=== PATIENT | male | born 1980 | race Two or more races ===

== ENCOUNTER 2020-06-07 12:06 | Outpatient (REF) | payer OTHER, SELFPAY ==
[2020-06-07 14:56] LABS: Alanine Aminotransferase 51 U/L (0-40); Albumin Level 4.7 g/dL (3.5-5.0); Alkaline Phosphatase 82 U/L (39-117); Anion Gap 12 (12-20); Aspartate Amino Transferase 24 U/L (5-37); Bilirubin Total 0.8 mg/dL (0.0-1.0); Blood Urea Nitrogen 18 mg/dL (9-16); Calcium 10.1 mg/dL (8.4-10.2); Carbon Dioxide 28 mmol/L (22-29); Chloride 103 mmol/L (96-108); Cholesterol 205 mg/dL; Estimated Glomerular Filt Rate > 60; Glucose Random 105 mg/dL (60-115); HDL Cholesterol 38 mg/dL; LDL Cholesterol Calculated 129 mg/dl; Potassium 4.8 mmol/L (3.3-5.1); Sodium 138 mmol/L (135-145); Total Protein 7.4 g/dL (6.5-8.0); Triglycerides 190 mg/dL
[2020-06-07 15:20] LABS: TSH reflex Free T4 0.87 uIU/mL (0.32-4.0)
== END 2020-06-07 12:07 | disposition home or self-care (01) ==
LOC: HO.WFDLDS 12:06
PROVIDERS: Visit Provider Family Medicine
DX: Z00.00 Encounter for general adult medical examination without abnormal findings (principal); I10 Essential (primary) hypertension; E78.5 Hyperlipidemia, unspecified
CPT/HCPCS: 36415; 80053; 80061; 84443

== ENCOUNTER 2020-11-01 10:05 | Outpatient (REF) | payer OTHER, SELFPAY ==
[2020-11-01 10:54] LABS: Alanine Aminotransferase 19 U/L (0-40); Albumin Level 4.4 g/dL (3.5-5.0); Alkaline Phosphatase 64 U/L (39-117); Aspartate Amino Transferase 14 U/L (5-37); Bilirubin Direct 0.3 mg/dL (0.0-0.5); Bilirubin Total 0.6 mg/dL (0.0-1.0); Total Protein 6.8 g/dL (6.5-8.0)
== END 2020-11-01 10:06 | disposition home or self-care (01) ==
LOC: HO.LAB 10:05
PROVIDERS: Visit Provider Psychiatry & Neurology Neurology
DX: Z13.89 Encounter for screening for other disorder (principal)
CPT/HCPCS: 36415; 80076

== ENCOUNTER 2021-04-03 11:34 | Outpatient (REF) | payer OTHER, SELFPAY ==
[2021-04-03 12:47] LABS: Alanine Aminotransferase 30 U/L (0-40); Albumin Level 4.4 g/dL (3.5-5.0); Alkaline Phosphatase 81 U/L (39-117); Anion Gap 11 (12-20); Aspartate Amino Transferase 16 U/L (5-37); Bilirubin Total 0.5 mg/dL (0.0-1.0); Blood Urea Nitrogen 22 mg/dL (9-16); Calcium 9.9 mg/dL (8.4-10.2); Carbon Dioxide 29 mmol/L (22-29); Chloride 108 mmol/L (96-108); Cholesterol 167 mg/dL; Estimated Glomerular Filt Rate > 60; Glucose Fasting 106 mg/dL (60-99); HDL Cholesterol 43 mg/dL; LDL Cholesterol Calculated 102 mg/dl; Potassium 4.4 mmol/L (3.3-5.1); Sodium 144 mmol/L (135-145); Total Protein 6.9 g/dL (6.5-8.0); Triglycerides 112 mg/dL
[2021-04-03 12:55] LABS: Microalbum/Creatinine Ratio Ur 3.6 ug/mg cr
[2021-04-03 13:11] LABS: TSH reflex Free T4 1.38 uIU/mL (0.32-4.0)
== END 2021-04-03 11:35 | disposition home or self-care (01) ==
LOC: HO.LAB 11:34
PROVIDERS: PCP Family Medicine; Visit Provider Family Medicine
DX: Z00.00 Encounter for general adult medical examination without abnormal findings (principal); I10 Essential (primary) hypertension
CPT/HCPCS: 36415; 80053; 80061; 82043; 84443

== ENCOUNTER 2022-04-01 09:27 | Outpatient (REF) | payer OTHER, SELFPAY ==
[2022-04-01 09:48] LABS: MANUAL DIFF FLAG NO
[2022-04-01 09:52] LABS: Basophils Percent Auto 0.4 % (0-2); Eosinophils Absolute Auto 0.1 X10*3/uL (0.0-0.4); Eosinophils Percent Auto 1.6 % (0-4); Hematocrit 41.3 % (42.0-52.0); Hemoglobin 14.1 g/dl (14.0-18.0); Imm Gran Abs Auto 0.01 X10*3/uL (0.00-0.03); Imm Gran Pct Auto 0.2 % (0.0-0.4); Lymphocytes Absolute Auto 0.9 X10*3/uL (1.2-4.9); Lymphocytes Percent Auto 19.4 % (20-40); Mean Corpuscular HGB Conc 34.1 g/dl (31.0-36.0); Mean Corpuscular Hemoglobin 30.8 pg (27.0-33.0); Mean Corpuscular Volume 90.2 fL (80.0-98.0); Mean Platelet Volume 10.2 fL (9.4-12.4); Monocytes Absolute Auto 0.6 X10*3/uL (0.1-1.2); Monocytes Percent Auto 13.4 % (2-11); Neutrophils Absolute Auto 2.9 x10*3/uL (2.0-8.3); Platelet Count 310 X10*3/uL (160-400); Red Blood Count 4.58 X10*6/uL (4.60-5.80); Red Cell Distribution Width 13.8 % (11.0-16.0); White Blood Count 4.5 X10*3/uL (4.8-10.8)
[2022-04-01 10:24] LABS: Estimated Average Glucose 111 mg/dL; Hemoglobin A1c % 5.5 %
[2022-04-01 10:42] LABS: Appearance Urine Clear; Color Urine Yellow; Glucose Urine UA Negative (Negative); Leukocyte Esterase Urine Negative (Negative); Nitrite Urine Negative (Negative); PH 6.5 (5.0-9.0); Specific Gravity - Urine 1.015 (1.005-1.025); Urine Blood Negative (Negative); Urine Ketones Trace mg/dL (Negative); Urine Protein Negative (Neg-Trace)
[2022-04-01 11:30] LABS: Alanine Aminotransferase 40 U/L (0-40); Albumin Level 4.6 g/dL (3.5-5.0); Alkaline Phosphatase 89 U/L (39-117); Aspartate Amino Transferase 19 U/L (5-37); Bilirubin Direct 0.2 mg/dL (0.0-0.5); Bilirubin Total 0.6 mg/dL (0.0-1.0)
[2022-04-01 11:44] LABS: Creatinine Urine 215.15 mg/dL; Microalbum/Creatinine Ratio Ur 3.2 ug/mg cr
[2022-04-01 12:01] LABS: Alanine Aminotransferase 40 U/L (0-40); Albumin Level 4.6 g/dL (3.5-5.0); Alkaline Phosphatase 89 U/L (39-117); Anion Gap 14 (12-20); Aspartate Amino Transferase 23 U/L (5-37); Bilirubin Total 0.6 mg/dL (0.0-1.0); Blood Urea Nitrogen 23 mg/dL (9-16); Calcium 10.4 mg/dL (8.4-10.2); Carbon Dioxide 24 mmol/L (22-29); Chloride 107 mmol/L (96-108); Cholesterol 312 mg/dL; Estimated Glomerular Filt Rate > 60; Glucose Fasting 110 mg/dL (60-99); HDL Cholesterol 35 mg/dL; LDL Cholesterol Calculated 235 mg/dl; Potassium 4.5 mmol/L (3.3-5.1); Sodium 140 mmol/L (135-145); Triglycerides 211 mg/dL
[2022-04-01 12:19] LABS: Prostate Specific Antigen Scr 0.55 ng/mL (<0.05-4.0); TSH reflex Free T4 0.68 uIU/mL (0.32-4.0)
[2022-04-01 14:31] LABS: Folate 8.1 ng/mL (> or = 4.0); Vitamin B12 449 pg/mL (200-900)
== END 2022-04-01 09:28 | disposition home or self-care (01) ==
LOC: HO.LAB 09:27
PROVIDERS: PCP Family Medicine; Visit Provider Psychiatry & Neurology Neurology
DX: Z00.00 Encounter for general adult medical examination without abnormal findings (principal); Z12.5 Encounter for screening for malignant neoplasm of prostate; I10 Essential (primary) hypertension; R73.01 Impaired fasting glucose; E53.8 Deficiency of other specified B group vitamins
CPT/HCPCS: 36415; 80053; 80061; 80076; 81003; 82043; 82248; 82607; 82746; 83036; 84153; 84443; 85025

== ENCOUNTER 2022-07-09 09:26 | Outpatient (REF) | payer OTHER, SELFPAY ==
[2022-07-09 09:45] LABS: MANUAL DIFF FLAG NO
[2022-07-09 10:31] LABS: Basophils Percent Auto 0.7 % (0-2); Eosinophils Absolute Auto 0.1 X10*3/uL (0.0-0.4); Eosinophils Percent Auto 1.7 % (0-4); Hematocrit 41.5 % (42.0-52.0); Hemoglobin 14.2 g/dl (14.0-18.0); Imm Gran Abs Auto 0.02 X10*3/uL (0.00-0.03); Imm Gran Pct Auto 0.4 % (0.0-0.4); Lymphocytes Absolute Auto 1.3 X10*3/uL (1.2-4.9); Lymphocytes Percent Auto 29.2 % (20-40); Mean Corpuscular HGB Conc 34.2 g/dl (31.0-36.0); Mean Corpuscular Hemoglobin 30.9 pg (27.0-33.0); Mean Corpuscular Volume 90.2 fL (80.0-98.0); Mean Platelet Volume 10.8 fL (9.4-12.4); Monocytes Absolute Auto 0.5 X10*3/uL (0.1-1.2); Neutrophils Absolute Auto 2.7 x10*3/uL (2.0-8.3); Platelet Count 278 X10*3/uL (160-400); White Blood Count 4.6 X10*3/uL (4.8-10.8)
[2022-07-09 11:09] LABS: Alanine Aminotransferase 59 U/L (0-40); Albumin Level 4.3 g/dL (3.5-5.0); Alkaline Phosphatase 67 U/L (39-117); Anion Gap 14 (12-20); Aspartate Amino Transferase 27 U/L (5-37); Bilirubin Total 0.6 mg/dL (0.0-1.0); Blood Urea Nitrogen 21 mg/dL (9-16); Calcium 9.7 mg/dL (8.4-10.2); Carbon Dioxide 27 mmol/L (22-29); Chloride 107 mmol/L (96-108); Cholesterol 302 mg/dL; Estimated Glomerular Filt Rate > 60; Glucose Fasting 99 mg/dL (60-99); HDL Cholesterol 35 mg/dL; LDL Cholesterol Calculated 222 mg/dl; Potassium 4.6 mmol/L (3.3-5.1); Sodium 143 mmol/L (135-145); Total Protein 6.4 g/dL (6.5-8.0); Triglycerides 228 mg/dL
[2022-07-09 11:15] LABS: Appearance Urine Clear; Color Urine Dark Yellow; Glucose Urine UA Negative (Negative); Leukocyte Esterase Urine Negative (Negative); Nitrite Urine Negative (Negative); Specific Gravity - Urine >= 1.030 (1.005-1.025); Urine Blood Negative (Negative); Urine Ketones Trace mg/dL (Negative); Urine Protein Negative (Neg-Trace)
[2022-07-09 11:28] LABS: Prostate Specific Antigen Scr 0.53 ng/mL (<0.05-4.0); TSH reflex Free T4 1.48 uIU/mL (0.32-4.0)
[2022-07-09 11:40] LABS: Creatinine Urine 395.17 mg/dL; Microalbum/Creatinine Ratio Ur 4.5 ug/mg cr
== END 2022-07-09 09:27 | disposition home or self-care (01) ==
LOC: HO.LAB 09:26
PROVIDERS: PCP Family Medicine; Visit Provider Family Medicine
DX: Z00.00 Encounter for general adult medical examination without abnormal findings (principal); Z12.5 Encounter for screening for malignant neoplasm of prostate; I10 Essential (primary) hypertension
CPT/HCPCS: 36415; 80053; 80061; 81003; 82043; 84153; 84443; 85025

== ENCOUNTER 2022-12-29 09:19 | Outpatient (AMB) | payer OTHER, SELFPAY ==
[2022-12-29 09:39] VITALS: BP 128/78; PULSE 73; O2SAT 96; BMI 29.2
--- NOTE | 2022-12-29 09:39 | MHC.PC.OV ---
Vital Signs 12/29/22 09:39 Height 5 ft 9 in Weight 198 lb BMI 29.2 BP 128/78 Blood Pressure Location Lt brachial Position Sitting Pulse 73 Pulse Source Pulse Oximeter Pulse Oximetry (%) 96 Oxygen Delivery Method Room Air Intake Visit Reasons: f/u chronic conditions Intake Note: Patient is here to follow up on chronic conditions. Patient is requesting a letter for a first floor apartment. Allergies phenytoin [Dilantin] Allergy (Unknown, Verified 12/29/22 09:41) unknown From Dilantin Allergy (Unknown, Uncoded 12/29/22 09:41) UNKNOWN Tobacco use date assessed: 12/29/22 Dental Screening Dental Screen Date: 12/29/22 Did you have a dental visit in the last 12 months?: Yes Did you have a dental problem in the last 6 months where you did not have access to dental care?: No Was dental information given to patient?: Patient has [facility] Surgical History History of tracheostomy Family History Mother No problems noted. Father No problems noted. Other Mental health disorder Social History (Reviewed 12/29/22 @ 09:43 by Kianna Aviles [facility]) Housing: Apartment Alcohol intake: former Patient Tobacco Use Status: Former Tobacco user Cigarettes Per Day: 2 e-Cigarette/Vaping Use: Never Used Second Hand Smoke Exposure: No service: No Current occupational status: disabled Current occupational exposures/hazards: No Cognitive needs: Yes (Cane/walker) Hearing needs: No Vision needs: No Questionnaire Thrive Questionnaire Date Thrive assessed: 03/04/22 SAAD-7 AMB Questionnaire SAAD-7 Date SAAD - 7 assessed: 03/04/22 Source: Developed by Drs. Kevin Lobato, Shaina Kate, Charan Villa and colleagues, with an educational michael from [employer]. Review of Systems Const Denies chills, Denies fatigue, Denies fever(s), Denies headache(s) and Denies weakness ENT Denies dizziness and Denies headache(s) Card Denies chest pain, Denies lightheadedness, Denies dyspnea and Denies other (Palpitations) Resp Denies cough, Denies dyspnea, Denies wheezing and Denies other ( shortness of breath) Musc Denies numbness and Denies tingling Neuro Denies dizziness, Denies headache(s), Denies numbness, Denies tingling, Denies paresthesias and Denies weakness Psych Denies anxiety and Denies depression Endo Denies fatigue Aller/Immun Denies wheezing Physical exam (Primary Care) Vital Signs: Last Vital Signs Pulse 73 12/29/22 09:39 BP 128/78 12/29/22 09:39 Pulse Ox 96 12/29/22 09:39 Oxygen Delivery Method Room Air 12/29/22 09:39 BMI result Body Mass Index 29.2 Tobacco/Smoking Status: Tobacco use Status Tobacco use date assessed 12/29/22 12/29/22 09:43 Patient Tobacco Use Status Former Tobacco user 12/29/22 09:43 e-Cigarette/Vaping Use Never Used 12/29/22 09:43 Thrive Assessment: Date of Thrive Assessment Date Thrive assessed 03/04/22 12/29/22 09:43 Const General: no acute distress and well developed Nutritional Appearance: well nourished Orientation/consciousness: patient oriented x3 HENMT Head: Yes normocephalic and Yes atraumatic Eyes General: appearance normal, both eyes and all related structures Pupils: Equal, round and reactive pupils present EOM: EOMs intact bilaterally Resp Effort & Inspection: normal respiratory effort Auscultation: clear to auscultation bilaterally Cardio Rate: regular rate Rhythm: regular rhythm Heart sounds: S1 normal heart sound present, S2 normal heart sound present, no gallops, no murmurs and no rubs Neuro Other: Mildly?unsteady?gait General: patient oriented x3 Cranial nerves: Yes Equal, round and reactive pupils present Psych Affect: normal affect Assessment and Plan Assessment & Plan (1) Multiple sclerosis: Code(s): G35 - Multiple sclerosis Plan: Multiple?sclerosis?and?ataxic?gait I?feel?he?would?benefit?from?a?first-floor?apartment?and?had?written?him?a?letter?for?this?in?June. He?says?he?is?on?a?waiting?list?now?for?August??2023. (2) Hyperlipidemia: Code(s): E78.5 - Hyperlipidemia, unspecified Plan: Cholesterol?levels?are?too?high.??He?is?on?atorvastatin?40?mg?daily Will?recheck?lipids?with?his?next?blood?draw?and?review?at?his?next?visit (3) Elevated liver enzymes: Code(s): R74.8 - Abnormal levels of other serum enzymes Plan: Liver?enzymes?are?too?high Checking?this?with?his?next?blood?draw?and?will?review?at?his?next?visit Orders: Orders UA and rflx microscopic Today Z00.00 - Encounter for general adult medical examination without abnormal findings Comprehensive [place]. Panel Fast Today Z00.00 - Encounter for general adult medical examination without abnormal findings Complete Blood Count Auto Diff Today Z00.00 - Encounter for general adult medical examination without abnormal findings Microalbumin, Random (w Creat) Today I10 - Essential (primary) hypertension Lipid Panel Today Z00.00 - Encounter for general adult medical examination without abnormal findings TSH reflex Free T4 Today Z00.00 - Encounter for general adult medical examination without abnormal findings Coding Level of Care Code Est Pt Level 4 (22952) Diagnoses Multiple sclerosis G35 Hyperlipidemia E78.5 Elevated liver enzymes R74.8
== END 2022-12-29 11:10 | disposition home or self-care (01) ==
PROVIDERS: PCP Family Medicine; Visit Provider Family Medicine
DX: G35 Multiple sclerosis (principal); E78.5 Hyperlipidemia, unspecified; R74.8 Abnormal levels of other serum enzymes
CPT/HCPCS: 99214

== ENCOUNTER 2022-12-29 11:05 | Outpatient (REF) | payer OTHER, SELFPAY ==
[2022-12-29 14:13] LABS: Alanine Aminotransferase 37 U/L (0-40); Albumin Level 4.6 g/dL (3.5-5.0); Alkaline Phosphatase 74 U/L (39-117); Anion Gap 16 (12-20); Aspartate Amino Transferase 27 U/L (5-37); Bilirubin Total 0.6 mg/dL (0.0-1.0); Blood Urea Nitrogen 33 mg/dL (9-16); Calcium 10.5 mg/dL (8.4-10.2); Carbon Dioxide 27 mmol/L (22-29); Chloride 105 mmol/L (96-108); Cholesterol 193 mg/dL (<200); Estimated Glomerular Filt Rate > 60; Glucose Fasting 98 mg/dL (60-99); HDL Cholesterol 28 mg/dL (>40); LDL Cholesterol Calculated 131 mg/dL (<100); Potassium 4.2 mmol/L (3.3-5.1); Sodium 144 mmol/L (135-145); Total Protein 7.6 g/dL (6.5-8.0); Triglycerides 171 mg/dL (<150)
[2022-12-29 14:31] LABS: TSH reflex Free T4 2.49 uIU/mL (0.32-4.0)
== END 2022-12-29 11:06 | disposition home or self-care (01) ==
LOC: HO.WFDLDS 11:05
PROVIDERS: Visit Provider Family Medicine
DX: Z00.00 Encounter for general adult medical examination without abnormal findings (principal); Z12.5 Encounter for screening for malignant neoplasm of prostate; I10 Essential (primary) hypertension
CPT/HCPCS: 36415; 80053; 80061; 81001; 82043; 82570; 84153; 84443; 85025

== ENCOUNTER 2023-01-09 18:30 | Inpatient (IN) | payer OTHER, SELFPAY ==
[2023-01-09 19:10] VITALS: BP 151/93; PULSE 73; RESP 16; TEMP 37.6; O2SAT 96; BMI 32.5
--- NOTE | 2023-01-09 19:15 | ED_ITS ---
HPI - General Adult General Chief complaint: Behavioral Concerns Stated complaint: crisis Time Seen by Provider: 01/09/23 20:44 Source: patient Mode of arrival: ambulatory Limitations: no limitations History of Present Illness HPI narrative: Patient comes to the emergency room complaining of feeling anxious and depressed because his neighbors don't let him get any rest . Patient denies suicidal or homicidal ideation. Patient denies any physical or verbal altercations Related Data Home Medications Medication Instructions Recorded Confirmed cholecalciferol (vitamin D3) 25 25 mcg PO DAILY 01/09/23 01/09/23 mcg (1,000 unit) tablet (Vitamin D3) dalfampridine 10 mg 10 mg PO BID 01/09/23 01/09/23 tablet,extended release,12 hr diclofenac sodium 50 mg 50 mg PO BID 01/09/23 01/09/23 tablet,delayed release diphenhydramine HCl 25 mg tablet 25 mg PO BEDTIME PRN allergies 01/09/23 01/09/23 (Autumn-Dryl) divalproex 250 mg tablet,extended 750 mg PO BID 01/09/23 01/09/23 release 24 hr fingolimod 0.5 mg capsule 0.5 mg PO DAILY 01/09/23 01/09/23 oxybutynin chloride 5 mg 5 mg PO DAILY 01/09/23 01/09/23 tablet,extended release 24 hr risperidone 3 mg tablet 3 mg PO BEDTIME 01/09/23 01/10/23 trazodone 100 mg tablet 100 mg PO DAILY 01/09/23 01/09/23 Previous Rx's Medication Instructions Recorded melatonin 10 mg capsule 10 mg PO BEDTIME PRN sleep #20 caps 01/09/23 Allergies Allergy/AdvReac Type Severity Reaction Status Date / Time phenytoin [Dilantin] Allergy Unknown unknown Verified 01/09/23 19:13 From Dilantin Allergy Unknown UNKNOWN Uncoded 01/09/23 19:13 Review of Systems 2 Review of Systems: Constitutional : No Weight loss, No Fever, No Chills, No Night Sweats, No Fatigue, No Malaise ENT/Mouth : No Hearing loss, No Ear Pain, No Nasal Congestion, No Sinus Pain, No Hoarseness, No sore throat, No Rhinorrhea, No Swallowing Difficulty Eyes: No Eye Pain, No Swelling, No Redness, No Foreign Body, No Discharge, No Vision Changes Cardiovascular : No Chest Pain, No SOB, No Dyspnea on Exertion, No Orthopnea, No Edema, No Palpitations Respiratory : No Cough, No Sputum, No Wheezing, No Smoke Exposure, No Dyspnea Gastrointestinal : No Nausea, No Vomiting, No Diarrhea, No Constipation, No abdominal Pain, No Hematochezia, No Melena Genitourinary : no irregular bleeding, No Dysuria, No Urinary Frequency, No Hematuria, No Urinary Incontinence, No Urgency, No Flank Pain, No Urinary Flow Changes, No Hesitancy Musculoskeletal : No joint pain, No Myalgias, No Joint Swelling Skin : No Skin Lesions, No rash Neuro : No Weakness, No Numbness, No Paresthesias, No Loss of Consciousness, No Dizziness, No Headache Psych : No Anxiety/Panic, No Depression, No SI/HI/AH/VH, complaining of issues with his neighbors not let him rest Heme/Lymph: No Bruising, No Bleeding,No Lymphadenopathy Endocrine : No Polyuria, No Polydipsia, No Temperature Intolerance PMFSH Past Medical History Surgical History History of tracheostomy Family History Family History Mother No problems noted. Father No problems noted. Other Mental health disorder Social History Social History Housing: Apartment Alcohol intake: former Patient Tobacco Use Status: Former Tobacco user Cigarettes Per Day: 2 e-Cigarette/Vaping Use: Never Used Second Hand Smoke Exposure: No Advance Directives: No Advance Directives Information Provided: No Guardian: No service: No Current occupational status: disabled Current occupational exposures/hazards: No Cognitive needs: Yes (Cane/walker) Hearing needs: No Vision needs: No Physical Exam ED Vital Signs: Vital Signs - 24 hr 01/10/23 18:23 01/10/23 23:26 Temperature 97.6 F 98.3 F Pulse Rate 72 79 Respiratory Rate 16 17 Blood Pressure 162/97 H 119/80 Pulse Oximetry 95 96 Oxygen Delivery Method Room Air Room Air BMI result Body Mass Index 32.5 Const Other: Appearance: Alert. Oriented X3. No acute distress. Eyes: Pupils equal, round and reactive to light. ENT: Pharynx normal. Neck: Normal inspection. Neck supple. No lymph nodes noted. No crepitus CVS: Normal heart rate and rhythm. Pulses normal. Normal S1 and S2 Respiratory: No respiratory distress. Breath sounds normal. No Wheezing. No rales Abdomen: Soft and nontender. No rigidity. No distention. Skin: Skin warm and dry. Normal skin color. Normal skin turgor. Extremities: No lower extremity edema. No Lacerations. No Rash Neuro: Oriented X 3. No motor deficit. No sensory deficit. Moving all extremities. No slurred speech. CN 2 through 12 grossly intact Psych: calm, cooperative, normal affect Course Course Course Narrative: RME performed by Cindi Stanford PA-C. Patient is a 42 year old assigned male at presenting to the emergency department with more stress because of his living situation. Patient states that he is more depressed because his neighbors are being more loud and not letting him read or sleep. Patient denies any HI or SI. Labs ordered. Patient placed back in the waiting room pending room availability and results. Reevaluation(s) Reevaluation #1: Physician observation continued. VS stable, no acute events at this time. voluntary inpatient bed search Medications Administered Generic Name Dose Route Start Last Admin Trade Name Freq PRN Reason Stop Dose Admin Diclofenac Sodium 50 mg 01/10/23 09:00 01/11/23 09:13 Diclofenac Sodium Delayed Rel 50 Mg Tablet.Dr PO 50 mg BID DREW Administration Diphenhydramine HCl 25 mg 01/10/23 00:06 01/10/23 20:16 Diphenhydramine Hcl 25 Mg Capsule PO 25 mg BEDTIME PRN Administration allergies Divalproex Sodium 750 mg 01/10/23 00:15 01/11/23 09:13 Divalproex Sodium Er 250 Mg Tab.Er.24h PO 750 mg BID DREW Administration Oxybutynin Chloride 5 mg 01/10/23 09:00 01/11/23 09:12 Oxybutynin Chloride Er 5 Mg Tab.Er.24 PO 5 mg DAILY DREW Administration Risperidone 3 mg 01/10/23 00:15 01/10/23 20:16 Risperidone 3 Mg Tablet PO 3 mg BEDTIME DREW Administration Vitamin D 25 mcg 01/10/23 09:00 01/11/23 09:12 Cholecalciferol (Vitamin D3) 25 Mcg Tablet PO 25 mcg DAILY DREW Administration Discontinued Medications Generic Name Dose Route Start Last Admin Trade Name Chaya PRN Reason Stop Dose Admin Trazodone HCl 100 mg 01/10/23 09:00 01/10/23 10:38 Trazodone Hcl 100 Mg Tablet PO Not Given DAILY [facility] Medical Decision Making Medical Decision Making [facility] Narrative: -care team assessment pending -21:56 CARE team evaluated the patient, patient was offered outpatient correctional case manager, therapist, patient declined, states that he feels well, patient requesting a medication to help him sleep. Melatonin will be sent to the patient's pharmacy. 22:48 Dr. Roberto's note: Start physician observation: 42-year-old male with a history of insomnia, hyperlipidemia, multiple sclerosis, hypertension who presented to the emergency department for evaluation anxiety, depression and insomnia since his neighbors were keeping up at night. I assumed care of this patient from my colleague, Dr. Alisha Person at 22:00 hours. Patient was evaluated by the care team and a care team clinician gave me the following information: the patient may be having some paranoid ideation. He believes that his neighbors are keeping him awake at night. He denies being suicidal or homicidal but he did tell the care team that has a knife in case someone tries to mess with him. Care team states the patient has no intent to harm anyone. Patient's affect appears to be unusual. care team clinician was able to review a previous admission in 2017. Patient was diagnosed with bipolar 1, at that time he had similar theme of his neighbors were out to get him. at that time he had gayle and delusional ideations. The care team clinician believe that the patient is not as decompensated as previously however her recommendation was to keep the patient in the emergency department for re-evaluation in the morning. Plan is to keep the patient in the emergency department Behavioral Health Unit until he can be re-evaluated to determine appropriate disposition. 845 am patient just came last night evaluated by Dr. Romero awaiting for care team to re-evaluate the patient to determine appropriate disposition vitals are stable no active complaints at this time Differential Diagnosis Differential Diagnoses: The differential diagnosis associated with the presentation includes (Anxiety, depression, possible underlying developmental delay?) Lab Data 01/09/23 23:25 01/09/23 23:25 Labs: Lab Results 01/09/23 01/10/23 Range/Units 23:25 00:57 WBC 4.3 L (4.8-10.8) X10*3/uL RBC 4.50 L (4.60-5.80) X10*6/uL Hgb 13.8 L (14.0-18.0) g/dl Hct 40.1 L (42.0-52.0) % MCV 89.1 (80.0-98.0) fL MCH 30.7 (27.0-33.0) pg MCHC 34.4 (31.0-36.0) g/dl RDW 13.8 (11.0-16.0) % Plt Count 265 (160-400) X10*3/uL MPV 10.9 (9.4-12.4) fL Immature Gran % (Auto) 0.2 (0.0-0.4) % Neut % (Auto) 59.5 (45-73) % Lymph % (Auto) 21.6 (20-40) % [place] % (Auto) 17.6 H (2-11) % Eos % (Auto) 0.9 (0-4) % Baso % (Auto) 0.2 (0-2) % Lymph # (Auto) 0.9 L (1.2-4.9) X10*3/uL [place] # (Auto) 0.8 (0.1-1.2) X10*3/uL Eos # (Auto) 0.0 (0.0-0.4) X10*3/uL Baso # (Auto) 0.0 (0.0-0.2) X10*3/uL Abs Immat Gran (auto) 0.01 (0.00-0.03) X10*3/uL Absolute Neuts (auto) 2.5 (2.0-8.3) x10*3/uL Absolute Nucleated RBC 0.000 (0.0-0.012) X10*3/uL Nucleated RBC % (auto) 0.0 (0.0-0.2) /100WBC Sodium 142 (135-145) mmol/L Potassium 4.0 (3.3-5.1) mmol/L Chloride 103 (96-108) mmol/L Carbon Dioxide 29 (22-29) mmol/L Anion Gap 14 (12-20) BUN 26 H (9-16) mg/dL Creatinine 1.00 (0.5-1.4) mg/dL Estim Creat Clear Calc 110.9 Estimated GFR > 60 Random Glucose 99 (60-115) mg/dL Calcium 10.1 (8.4-10.2) mg/dL Total Bilirubin 0.5 (0.0-1.0) mg/dL AST 41 H (5-37) U/L ALT 51 H (0-40) U/L Alkaline Phosphatase 69 (39-117) U/L Total Protein 6.8 (6.5-8.0) g/dL Albumin 4.3 (3.5-5.0) g/dL Urine Color Dark Yellow Urine Appearance Clear Urine pH 6.0 (5.0-9.0) Ur Specific [place] 1.025 (1.005-1.025) Urine Protein Negative (Neg-Trace) mg/dL Urine Glucose (UA) Negative (Negative) mg/dL Urine Ketones Trace (Negative) mg/dL Urine Blood Negative (Negative) Urine Nitrite Negative (Negative) Ur Leukocyte Esterase Negative (Negative) Urine Opiates Screen Not Detected (Not Detect) Urine Fentanyl Screen Not Detected (Not Detect) Ur Barbiturates Screen Not Detected (Not Detect) Valproic Acid 70.9 (50.0-100.0) mcg/mL Ur Phencyclidine Scrn Not Detected (Not Detect) Ur Amphetamines Screen Not Detected (Not Detect) U Benzodiazepines Scrn Not Detected (Not Detect) Urine Cocaine Screen Not Detected (Not Detect) U Marijuana (THC) Screen Not Detected (Not Detect) Ethyl Alcohol < 10 mg/dL Discharge Plan Discharge Clinical Impression: Insomnia, Paranoid ideation Patient Disposition: Still a Patient Instructions: Insomnia (ED) Additional Instructions: Please follow-up with your primary care physician tomorrow. If you have any worsening or new symptoms, please return to the emergency room or call 911 Prescriptions: New melatonin 10 mg capsule 10 mg PO BEDTIME PRN (Reason: sleep) Qty: 20 0RF No Action risperidone 3 mg tablet 3 mg PO BEDTIME trazodone 100 mg tablet 100 mg PO DAILY diphenhydramine HCl [Autumn-Dryl] 25 mg tablet 25 mg PO BEDTIME PRN (Reason: allergies) oxybutynin chloride 5 mg tablet extended release 24hr 5 mg PO DAILY diclofenac sodium 50 mg tablet,delayed release (DR/EC) 50 mg PO BID divalproex 250 mg tablet extended release 24 hr 750 mg PO BID cholecalciferol (vitamin D3) [Vitamin D3] 25 mcg (1,000 unit) tablet 25 mcg PO DAILY dalfampridine 10 mg tablet extended release 12 hr 10 mg PO BID fingolimod 0.5 mg capsule 0.5 mg PO DAILY
[2023-01-09 23:31] LABS: MANUAL DIFF FLAG NO
[2023-01-09 23:32] LABS: Basophils Percent Auto 0.2 % (0-2); Eosinophils Percent Auto 0.9 % (0-4); Hematocrit 40.1 % (42.0-52.0); Hemoglobin 13.8 g/dl (14.0-18.0); Imm Gran Abs Auto 0.01 X10*3/uL (0.00-0.03); Imm Gran Pct Auto 0.2 % (0.0-0.4); Lymphocytes Absolute Auto 0.9 X10*3/uL (1.2-4.9); Lymphocytes Percent Auto 21.6 % (20-40); Mean Corpuscular HGB Conc 34.4 g/dl (31.0-36.0); Mean Corpuscular Hemoglobin 30.7 pg (27.0-33.0); Mean Corpuscular Volume 89.1 fL (80.0-98.0); Mean Platelet Volume 10.9 fL (9.4-12.4); Monocytes Absolute Auto 0.8 X10*3/uL (0.1-1.2); Monocytes Percent Auto 17.6 % (2-11); Neutrophils Absolute Auto 2.5 x10*3/uL (2.0-8.3); Neutrophils Percent Auto 59.5 % (45-73); Platelet Count 265 X10*3/uL (160-400); Red Cell Distribution Width 13.8 % (11.0-16.0); White Blood Count 4.3 X10*3/uL (4.8-10.8)
[2023-01-09 23:47] LABS: Ethanol < 10 mg/dL; Valproate 70.9 mcg/mL (50.0-100.0)
[2023-01-09 23:49] LABS: Alanine Aminotransferase 51 U/L (0-40); Albumin Level 4.3 g/dL (3.5-5.0); Alkaline Phosphatase 69 U/L (39-117); Anion Gap 14 (12-20); Aspartate Amino Transferase 41 U/L (5-37); Bilirubin Total 0.5 mg/dL (0.0-1.0); Blood Urea Nitrogen 26 mg/dL (9-16); Calcium 10.1 mg/dL (8.4-10.2); Carbon Dioxide 29 mmol/L (22-29); Chloride 103 mmol/L (96-108); Creatinine Clr Calc Pharmacy 110.9; Estimated Glomerular Filt Rate > 60; Glucose Random 99 mg/dL (60-115); Sodium 142 mmol/L (135-145); Total Protein 6.8 g/dL (6.5-8.0)
[2023-01-10 00:15] VITALS: BP 131/82; PULSE 63; RESP 17; TEMP 36.7; O2SAT 96
[2023-01-10] MEDS: Divalproex Sodium ER 250 MG TAB.ER.24H 750 MG PO ×3 (00:55→20:16)
[2023-01-10] MEDS: diphenhydrAMINE HCL 25 MG CAPSULE PO ×2 (00:55→20:16)
[2023-01-10] MEDS: risperiDONE 3 MG TABLET PO ×2 (00:55→20:16)
[2023-01-10] MEDS: traZODone HCL 100 MG TABLET PO (00:58)
[2023-01-10 01:06] LABS: Appearance Urine Clear; Color Urine Dark Yellow; Glucose Urine UA Negative (Negative); Leukocyte Esterase Urine Negative (Negative); Nitrite Urine Negative (Negative); Specific Gravity - Urine 1.025 (1.005-1.025); Urine Blood Negative (Negative); Urine Ketones Trace mg/dL (Negative); Urine Protein Negative (Neg-Trace)
[2023-01-10 01:12] LABS: Amphetamine Screen Urine Not Detected (Not Detect); Barbiturates, Urine Not Detected (Not Detect); Benzodiazepines Screen Urine Not Detected (Not Detect); Cannabinoid Screen Urine Not Detected (Not Detect); Cocaine Screen Urine Not Detected (Not Detect); Fentanyl, urine Not Detected (Not Detect); Opiate Screen Urine Not Detected (Not Detect); Phencyclidine Screen Urine Not Detected (Not Detect)
--- NOTE | 2023-01-10 06:15 | PC.NURSE ---
Patient slept through the night, no distress observed/reported, behavior non concerning, medication compliant, care consult ordered/pending evaluation, labs completed/resulted, VSS, will continue to monitor.
--- NOTE | 2023-01-10 07:04 | PC.NURSE ---
patient appears to remain asleep at present respirations are even and unlabored patient appears in no distress
[2023-01-10] MEDS: oxyBUTYnin chloride ER 5 MG TAB.ER.24 PO (10:37)
[2023-01-10] MEDS: Cholecalciferol (Vitamin D3) 25 MCG TABLET PO (10:37)
--- NOTE | 2023-01-10 15:09 | PHA.MEDREC ---
Pharmacy Consult ? Medication Reconciliation Pharmacy has completed the medication reconciliation. Reviewed med recs done by nursing
--- NOTE | 2023-01-10 16:10 | PC.NURSE ---
patient asked to be able to listen/zoom call for jehovahs witness meeting on 01/11. t/w told client if clerk supervisor allowed we could cover his door to allow for confidentiality of peers to allow this if clerk supervisor agreed.
--- NOTE | 2023-01-10 16:53 | MHC.CARE ---
Tw conducted a [place] bed search, [facility] [place].
[2023-01-10 18:23] VITALS: BP 162/97; PULSE 72; RESP 16; TEMP 36.4; O2SAT 95
[2023-01-10] MEDS: Diclofenac Sodium Delayed Rel 50 MG TABLET.DR PO (20:15)
[2023-01-10 23:26] VITALS: BP 119/80; PULSE 79; RESP 17; TEMP 36.8; O2SAT 96
--- NOTE | 2023-01-11 05:53 | PC.NURSE ---
Patient slept through the night, no distress observed/reported, behavior non concerning, disposition per care team is voluntary inpatient bed search, medication compliant, care consult ordered/pending evaluation, labs completed/resulted, VSS, will continue to monitor.
--- NOTE | 2023-01-11 07:16 | PC.NURSE ---
patient appears to remain asleep at present respirations are even and unlabored patient appears in no distress.
[2023-01-11] MEDS: oxyBUTYnin chloride ER 5 MG TAB.ER.24 PO (09:12)
[2023-01-11] MEDS: Cholecalciferol (Vitamin D3) 25 MCG TABLET PO (09:12)
[2023-01-11] MEDS: Divalproex Sodium ER 250 MG TAB.ER.24H 750 MG PO ×2 (09:13→21:05)
[2023-01-11] MEDS: Diclofenac Sodium Delayed Rel 50 MG TABLET.DR PO ×2 (09:13→21:48)
--- NOTE | 2023-01-11 13:40 | PC.NURSE ---
clients mother came in with snack for client and had received msg from pharmacy in regards to non formulary meds, clients mother states shell come back in today.
[2023-01-11 16:30] VITALS: BP 140/99; PULSE 84; RESP 20; TEMP 37.1; O2SAT 97
--- NOTE | 2023-01-11 18:43 | ECG_ITS ---
Test Reason : MEDICAL CLEARANCE Blood Pressure : / mmHG Vent. Rate : 080 BPM Atrial Rate : 080 BPM P-R Int : 150 ms QRS Dur : 078 ms QT Int : 380 ms P-R-T Axes : 060 006 044 degrees QTc Int : 438 ms Normal sinus rhythm Normal ECG When compared with ECG of 11-JUN-2016 13:58, T wave amplitude has decreased in Anterior leads Referred By: Martir Davis Electronically Signed By:LA NEELY MD
[2023-01-11] MEDS: risperiDONE 3 MG TABLET PO (21:05)
[2023-01-11] MEDS: traZODone HCL 100 MG TABLET PO (21:05)
--- NOTE | 2023-01-11 21:11 | PC.NURSE ---
Pt medicated per may. This RN spoke with Americo from pharmacy regarding Diclofenac med, waiting on pharmacy to bring med. Pt's own med showing in Pyxis in pysch pod but when this RN went to get med, med no longer there. Per RN in psych pod, med was given to previous RN. This RN spoke with nurse charge rn. This RN spoke with Americo again regarding pt own med issue. Per americo will send camden down to access pt own med in pyxis. Plan of care ongoing.
--- NOTE | 2023-01-12 00:34 | PC.NURSE ---
Pt calm and cooperative, resting quietly. Plan of care ongoing.
[2023-01-12 02:55] VITALS: RESP 20
--- NOTE | 2023-01-12 03:25 | PC.NURSE ---
Pt ambulated with a steady gait to restroom. Plan of care ongoing.
--- NOTE | 2023-01-12 05:03 | PC.NURSE ---
Pt out of bed asking when [facility] will be in to see him. Pt advised it is 5am and they arent usually here that early. Pt assisted back into bed. Plan of care ongoing.
--- NOTE | 2023-01-12 08:11 | PC.NURSE ---
PT ASKING TO BE DISCHARGED, CARE TEAM REPORTS PT IS A IP BEDSEARCH NOT VOLUNTARY
[2023-01-12 08:31] LABS: COVID-19 Test Negative (Negative); IDNOW Serial# BCCEAD1C
[2023-01-12 08:35] VITALS: BP 118/68; PULSE 102; RESP 14; O2SAT 95
[2023-01-12] MEDS: oxyBUTYnin chloride ER 5 MG TAB.ER.24 PO (09:38)
[2023-01-12] MEDS: Diclofenac Sodium Delayed Rel 50 MG TABLET.DR PO ×2 (09:39→19:42)
[2023-01-12] MEDS: Cholecalciferol (Vitamin D3) 25 MCG TABLET PO (09:40)
[2023-01-12] MEDS: Divalproex Sodium ER 250 MG TAB.ER.24H 750 MG PO ×2 (09:41→19:41)
--- NOTE | 2023-01-12 09:43 | PC.NURSE ---
patient resting in bed in front of nurses station, respirations equal and unlabored. patient shows no signs of distress. medicated per MAY. refused breakfast tray this morning
--- NOTE | 2023-01-12 12:18 | PC.NURSE ---
NURSE TO NURSE REPORT GIVEN FOR M5 ADMISSION
[2023-01-12 14:15] VITALS: BP 132/92; PULSE 96; RESP 16; TEMP 36.8; O2SAT 97
--- NOTE | 2023-01-12 14:23 | PC.NURSE ---
pt arrived on unit via wheelchair on a CV. Vitals taken, skin check performed, oriented to unit and room. Admission assessment to follow.
[2023-01-12 18:00] VITALS: BP 132/78; PULSE 87; TEMP 36.4
[2023-01-12] MEDS: risperiDONE 3 MG TABLET PO (19:41)
[2023-01-12] MEDS: traZODone HCL 100 MG TABLET PO (19:42)
[2023-01-13 08:27] VITALS: BP 140/85; PULSE 76; RESP 16; TEMP 36.6; O2SAT 92
[2023-01-13 08:41] LABS: Estimated Average Glucose 114 mg/dL; Hemoglobin A1c % 5.6 % (<6.0)
[2023-01-13] MEDS: oxyBUTYnin chloride ER 5 MG TAB.ER.24 PO (08:59)
[2023-01-13] MEDS: Divalproex Sodium ER 250 MG TAB.ER.24H 750 MG PO ×2 (08:59→20:31)
[2023-01-13] MEDS: Diclofenac Sodium Delayed Rel 50 MG TABLET.DR PO ×2 (08:59→20:29)
[2023-01-13] MEDS: Cholecalciferol (Vitamin D3) 25 MCG TABLET PO (09:00)
[2023-01-13 09:20] LABS: Alanine Aminotransferase 59 U/L (0-40); Albumin Level 4.6 g/dL (3.5-5.0); Alkaline Phosphatase 67 U/L (39-117); Anion Gap 17 (12-20); Aspartate Amino Transferase 30 U/L (5-37); Bilirubin Total 0.7 mg/dL (0.0-1.0); Blood Urea Nitrogen 28 mg/dL (9-16); Calcium 10.1 mg/dL (8.4-10.2); Carbon Dioxide 23 mmol/L (22-29); Chloride 106 mmol/L (96-108); Cholesterol 201 mg/dL (<200); Creatinine Clr Calc Pharmacy 95.6; Estimated Glomerular Filt Rate > 60; Glucose Fasting 102 mg/dL (60-99); HDL Cholesterol 38 mg/dL (>40); LDL Cholesterol Calculated 120 mg/dL (<100); Potassium 4.3 mmol/L (3.3-5.1); Sodium 142 mmol/L (135-145); Total Protein 7.5 g/dL (6.5-8.0); Triglycerides 216 mg/dL (<150)
[2023-01-13 09:27] LABS: Thyroid Stimulating Hormone 1.94 uIU/mL (0.32-4.0)
[2023-01-13 09:38] LABS: Folate 11.3 ng/mL (> or = 4.0); Vitamin B12 505 pg/mL (200-900)
--- NOTE | 2023-01-13 12:20 | P.HPPS_ITS ---
HPI Date of Service: 01/13/23 Chief Complaint: Bipolar Disorder with Psychosis Sources of Information: patient interviewed, chart reviewed and crisis/core team assessment reviewed HPI Subjective Notes: Benson Warning and Conditional Voluntary Healthcare Proxy: No Guardianship: No Medical Problems Affecting Mental Status: No Narrative: 42 yo male, to ER with a friend, with reports of anxiety and paranoia regarding neighbors talking about him and possibly wanting to harm him. Reported inability to sleep for seven months due to neighbors making noise at night intentionally. Recently he reported carrying a knife as he felt he needed protection and to have a self defense plan prepared. Denies SI, HI. Per crisis report, sister tells crisis pt has had delusions regarding the neighbors for many years, at baseline. Pt admitted as he was concerned about his level of paranoia and that he may be becoming manic Past Psychiatric History: IP: Affirms admission- at least a few with Preston and M5 OP: Therapy- [facility] Prescriber- Dr. Mercado, PCP Trials: yes Medical Evaluation Reviewed: Yes [facility] Medical History (Updated 01/14/23 @ 16:26 by Liss Tariq APRN) Bipolar disorder with psychotic features Narrative: MS Seizure Disorder Surgical History History of tracheostomy Family History: Oh yes, I think so Social History: I am committed to the [employer] ashish now Substance History: alcohol, cannabis by history Trauma History: Affirms Diagnostics Vital Signs (24Hr): Vital Signs - 24 hr 01/12/23 14:15 01/12/23 18:00 01/13/23 08:27 Temperature 98.2 F 97.6 F 97.9 F Pulse Rate 96 87 76 Respiratory Rate 16 16 Blood Pressure 132/92 H 132/78 140/85 H Pulse Oximetry 97 92 Oxygen Delivery Method Room Air Room Air BMI result Body Mass Index 32.5 Labs 01/09/23 23:25 01/13/23 07:53 Labs: Laboratory Results - last 48 hr 01/12/23 01/13/23 08:13 07:53 Sodium 142 Potassium 4.3 Chloride 106 Carbon Dioxide 23 Anion Gap 17 BUN 28 H Creatinine 1.16 Estim Creat Clear Calc 95.6 Estimated GFR > 60 Fasting Glucose 102 H Estimat Average Glucose 114 Hemoglobin A1c % 5.6 Calcium 10.1 Total Bilirubin 0.7 AST 30 ALT 59 H Alkaline Phosphatase 67 Total Protein 7.5 Albumin 4.6 Triglycerides 216 H Cholesterol 201 H LDL Cholesterol, Calc 120 H HDL Cholesterol 38 L Vitamin B12 505 Folate 11.3 TSH 1.94 COVID-19 (ANDI) Negative COVID-19 Clin Com See Note Meds/Allergies Meds Home Medications Medication Instructions Recorded Confirmed Type cholecalciferol (vitamin D3) 25 25 mcg PO DAILY 01/09/23 01/09/23 History mcg (1,000 unit) tablet (Vitamin D3) dalfampridine 10 mg 10 mg PO BID 01/09/23 01/09/23 History tablet,extended release,12 hr diclofenac sodium 50 mg 50 mg PO BID 01/09/23 01/09/23 History tablet,delayed release diphenhydramine HCl 25 mg tablet 25 mg PO BEDTIME PRN allergies 01/09/23 01/09/23 History (Autumn-Dryl) divalproex 250 mg tablet,extended 750 mg PO BID 01/09/23 01/09/23 History release 24 hr fingolimod 0.5 mg capsule 0.5 mg PO DAILY 01/09/23 01/09/23 History oxybutynin chloride 5 mg 5 mg PO DAILY 01/09/23 01/09/23 History tablet,extended release 24 hr risperidone 3 mg tablet 3 mg PO BEDTIME 01/09/23 01/10/23 History trazodone 100 mg tablet 100 mg PO DAILY 01/09/23 01/09/23 History Allergies Allergies Allergy/AdvReac Type Severity Reaction Status Date / Time phenytoin [Dilantin] Allergy Unknown unknown Verified 01/09/23 19:13 From Dilantin Allergy Unknown UNKNOWN Uncoded 01/09/23 19:13 Mental Status Exam Mental Status Exam Patient Appearance: Appropriate Patient Orientation: Person, Place, Time and Situation Level of Consciousness: Alert Patient Behavior: Appropriate, Guarded, Talkative, Cooperative, Suspicious and Good Eye Contact Mood Description: Anxious and Apprehensive Affect Description: Anxious and Apprehensive Patient Cognition Impaired: No Ability to Follow Directions: Good Speech Pattern: Spontaneous Speech Memory Description: Episodic Impaired Hallucinations: None Delusions: Paranoid Ideation Thought Process: Distracted Thought Content: positive for Flight of Ideas, positive for Circumstantial, positive for Tangential, positive for Suicidal Ideation (denies) and positive for Homicidal Ideation (denies) Depressive Symptoms: Insomnia, Difficulty Sleeping and Difficulty Concentrating Judgement: Fair Assessment & Plan Assessment & Plan (1) Bipolar disorder with psychotic features: Status: Acute Code(s): F31.9 - Bipolar disorder, unspecified Plan 42 yo male, history of bipolar disorder with psychotic features and with fixed delusions regarding neighbors keeping him awake and potentially harming him. Pt is concerned with his level of paranoia and concerned he is becoming manic. Plan: Continue regime, adjust as needed and as pt will allow Collateral contact Diagnostics, Valporate 70.9 on admission Patient educated on: medication risk/benefits and therapeutic strategies Informed Consent: understands and further education needed Reason for continued inpatient stay Substantial Risk for: rapid decompensation Statement Statement: I have reviewed the history and physical and performed a pertinent examination on my patient. No changes have occurred unless specified. If the History and Physical was not performed prior to admission, the Hospitalist's service will be consulted for completing the admission physical. Time Spent With Patient Time: Total time managing care of this patient today ____ minutes.
--- NOTE | 2023-01-13 16:01 | HO.PM.IMCN ---
History of Present Illness Data of Consult Service Date: 01/13/23 Requesting physician: Liss Tariq Primary Care Provider: Konrad Mercado MD HPI Reason for consult: medical H&P PMFSH Family History Mother No problems noted. Father No problems noted. 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 that helps with household tasks) Alcohol intake: former Patient Tobacco Use Status: Former Tobacco user Quit Date: pt reports stopped smoking one year ago Tobacco use type: Cigarette Cigarettes Per Day: 2 Smoked in Last 30 Days: No e-Cigarette/Vaping Use: Never Used Patient Interested in Nicotine Replacement: No Patient Given Instructions on How to Stop Smoking: No Second Hand Smoke Exposure: No Use of substances other than those prescribed or required for medical reasons: No Currently Displaying Signs/Symptoms of Drug Intoxication Withdrawal: No Have you been hit, kicked, punched, or otherwise hurt by someone within the past year? If so, by whom?: No Do you feel safe in your current relationship?: No Current Relationship Is there a partner from a previous relationship who is making you feel unsafe now?: No Are you made to feel afraid or neglected: No [employer] Healthcare Practices: Church Advance Directives: Yes (Pete Miller and Chiara Miller) Advance Directives Information Provided: No (Pt reports they are his POA and their card is in his wallet) Guardian: No Do you have thoughts of harming others: None Do you have a plan to hurt others: No Plan Recently lost weight without trying: No Eating poorly because of decreased appetite: No Nutrition Risks: No Nutritional Risk Poor oral hygiene: No service: No Current occupational status: disabled Current occupational exposures/hazards: No Cognitive needs: Yes (Cane/walker) Hearing needs: No Vision needs: No Meds Allergies Allergy/AdvReac Type Severity Reaction Status Date / Time phenytoin [Dilantin] Allergy Unknown unknown Verified 01/09/23 19:13 From Dilantin Allergy Unknown UNKNOWN Uncoded 01/09/23 19:13 Active Medications: Current Medications Acetaminophen (Acetaminophen 325 Mg Tablet) 650 mg PO Q6H PRN PRN Reason: Headache/Pain Mild Scale (1-3) Al Hydroxide/Mg Hydroxide (Magnesium Hydrox/Alum Hydrox 30 Ml Oral.Susp) 30 ml PO Q6H PRN PRN Reason: Heartburn/Nausea Diclofenac Sodium (Diclofenac Sodium Delayed Rel 50 Mg Tablet.Dr) 50 mg PO BID [facility] Last Admin: 01/13/23 08:59 Dose: 50 mg Diphenhydramine HCl (Diphenhydramine Hcl 25 Mg Capsule) 25 mg PO BEDTIME PRN PRN Reason: allergies Last Admin: 01/10/23 20:16 Dose: 25 mg Divalproex Sodium (Divalproex Sodium Er 250 Mg Tab.Er.24h) 750 mg PO BID [facility] Last Admin: 01/13/23 08:59 Dose: 750 mg Hydroxyzine HCl (Hydroxyzine Hcl 25 Mg Tablet) 25 mg PO Q6H PRN PRN Reason: Anxiety Magnesium Hydroxide (Milk Of Magnesia 30 Ml Oral.Susp) 30 ml PO DAILY PRN PRN Reason: Constipation Patient Own Med ( Dalfampridine 10 Mg Tablet Extended Release 12 Hr) 10 mg PO BID [facility] Last Admin: 01/13/23 11:04 Dose: 10 mg Patient Own Medication ( Fingolimod 0.5 Mg) 1 each PO DAILY [facility] Last Admin: 01/13/23 11:04 Dose: 1 each Oxybutynin Chloride (Oxybutynin Chloride Er 5 Mg Tab.Er.24) 5 mg PO DAILY [facility] Last Admin: 01/13/23 08:59 Dose: 5 mg Risperidone (Risperidone 3 Mg Tablet) 3 mg PO BEDTIME [facility] Last Admin: 01/12/23 19:41 Dose: 3 mg Trazodone HCl (Trazodone Hcl 100 Mg Tablet) 100 mg PO BEDTIME [facility] Last Admin: 01/12/23 19:42 Dose: 100 mg Trazodone HCl (Trazodone Hcl 50 Mg Tablet) 50 mg PO BEDTIME PRN PRN Reason: Insomnia Vitamin D (Cholecalciferol (Vitamin D3) 25 Mcg Tablet) 25 mcg PO DAILY [facility] Last Admin: 01/13/23 09:00 Dose: 25 mcg Home Medications Medication Instructions Recorded Confirmed Last Taken Type cholecalciferol (vitamin D3) 25 25 mcg PO DAILY 01/09/23 01/09/23 Unknown History mcg (1,000 unit) tablet (Vitamin D3) dalfampridine 10 mg 10 mg PO BID 01/09/23 01/09/23 Unknown History tablet,extended release,12 hr diclofenac sodium 50 mg 50 mg PO BID 01/09/23 01/09/23 Unknown History tablet,delayed release diphenhydramine HCl 25 mg tablet 25 mg PO BEDTIME PRN allergies 01/09/23 01/09/23 Unknown History (Autumn-Dryl) divalproex 250 mg tablet,extended 750 mg PO BID 01/09/23 01/09/23 Unknown History release 24 hr fingolimod 0.5 mg capsule 0.5 mg PO DAILY 01/09/23 01/09/23 Unknown History oxybutynin chloride 5 mg 5 mg PO DAILY 01/09/23 01/09/23 Unknown History tablet,extended release 24 hr risperidone 3 mg tablet 3 mg PO BEDTIME 01/09/23 01/10/23 Unknown History trazodone 100 mg tablet 100 mg PO DAILY 01/09/23 01/09/23 Unknown History Physical Exam Vital Signs and Narrative: Vital Signs: Last Vital Signs Temp 97.9 F 01/13/23 08:27 Pulse 76 01/13/23 08:27 Resp 16 01/13/23 08:27 BP 140/85 H 01/13/23 08:27 Pulse Ox 92 01/13/23 08:27 O2 Del Method Room Air 01/13/23 08:27 BMI result Body Mass Index 32.5 Results Labs 01/09/23 23:25 01/13/23 07:53 Labs: Laboratory Results - last 24 hr 01/13/23 07:53 Anion Gap 17 Estim Creat Clear Calc 95.6 Estimated GFR > 60 Fasting Glucose 102 H Estimat Average Glucose 114 Hemoglobin A1c % 5.6 Calcium 10.1 Total Bilirubin 0.7 AST 30 ALT 59 H Alkaline Phosphatase 67 Total Protein 7.5 Albumin 4.6 Triglycerides 216 H Cholesterol 201 H LDL Cholesterol, Calc 120 H HDL Cholesterol 38 L Vitamin B12 505 Folate 11.3 TSH 1.94 Assessment and Plan Time Spent With Patient Time: Total time managing care of this patient today ____ minutes.
[2023-01-13 18:00] VITALS: BP 136/81; PULSE 82; TEMP 36.6
[2023-01-13] MEDS: risperiDONE 3 MG TABLET PO (20:30)
[2023-01-13] MEDS: traZODone HCL 100 MG TABLET PO (20:30)
[2023-01-14 08:32] VITALS: BP 132/80; PULSE 73; RESP 16; TEMP 36.2; O2SAT 97
[2023-01-14] MEDS: Divalproex Sodium ER 250 MG TAB.ER.24H 750 MG PO ×2 (09:41→20:34)
[2023-01-14] MEDS: oxyBUTYnin chloride ER 5 MG TAB.ER.24 PO (09:41)
[2023-01-14] MEDS: Cholecalciferol (Vitamin D3) 25 MCG TABLET PO (09:42)
[2023-01-14] MEDS: Diclofenac Sodium Delayed Rel 50 MG TABLET.DR PO ×2 (09:42→20:34)
--- NOTE | 2023-01-14 16:10 | HO.PSYCHPN ---
Subjective Subjective Date of Service: 01/14/23 Reason For Visit: Bipolar Disorder with Psychosis Subjective Notes: Conditional Voluntary Healthcare Proxy: No Guardianship: No Medical Problems Affecting Mental Status: No Interim History: Pt reports anxiety and fear of being harmed, asks for a private room. Team will discuss this with him. Review of medications, suggestions for changes which pt declines. Family visited today. Medication Compliance: Yes Side effects from medications: No Attending Groups: Intermittent Review of Systems Acute medical concerns: No Medical Review of Systems: unchanged Mental Status Exam Mental Status Exam Patient Appearance: Appropriate Patient Orientation: Person, Place, Time and Situation Level of Consciousness: Alert Patient Behavior: Appropriate, Guarded, Talkative, Cooperative, Suspicious and Good Eye Contact Mood Description: Anxious and Apprehensive Affect Description: Anxious and Apprehensive Patient Cognition Impaired: No Ability to Follow Directions: Good Speech Pattern: Spontaneous Speech Memory Description: Episodic Impaired Hallucinations: None Delusions: Paranoid Ideation Thought Process: Distracted Thought Content: positive for Flight of Ideas, positive for Circumstantial, positive for Tangential, positive for Suicidal Ideation (denies) and positive for Homicidal Ideation (denies) Depressive Symptoms: Insomnia, Difficulty Sleeping and Difficulty Concentrating Judgement: Fair Diagnostics Vital Signs (24Hr): Vital Signs - 24 hr 01/13/23 18:00 01/14/23 08:32 Temperature 97.8 F 97.1 F Pulse Rate 82 73 Respiratory Rate 16 Blood Pressure 136/81 132/80 Pulse Oximetry 97 Oxygen Delivery Method Room Air BMI result Body Mass Index 32.5 Labs 01/09/23 23:25 01/13/23 07:53 Labs: Laboratory Results - last 48 hr 01/13/23 07:53 Sodium 142 Potassium 4.3 Chloride 106 Carbon Dioxide 23 Anion Gap 17 BUN 28 H Creatinine 1.16 Estim Creat Clear Calc 95.6 Estimated GFR > 60 Fasting Glucose 102 H Estimat Average Glucose 114 Hemoglobin A1c % 5.6 Calcium 10.1 Total Bilirubin 0.7 AST 30 ALT 59 H Alkaline Phosphatase 67 Total Protein 7.5 Albumin 4.6 Triglycerides 216 H Cholesterol 201 H LDL Cholesterol, Calc 120 H HDL Cholesterol 38 L Vitamin B12 505 Folate 11.3 TSH 1.94 Medications Medications Current Medications Acetaminophen (Acetaminophen 325 Mg Tablet) 650 mg PO Q6H PRN PRN Reason: Headache/Pain Mild Scale (1-3) Al Hydroxide/Mg Hydroxide (Magnesium Hydrox/Alum Hydrox 30 Ml Oral.Susp) 30 ml PO Q6H PRN PRN Reason: Heartburn/Nausea Diclofenac Sodium (Diclofenac Sodium Delayed Rel 50 Mg Tablet.Dr) 50 mg PO BID [facility] Last Admin: 01/14/23 09:42 Dose: 50 mg Diphenhydramine HCl (Diphenhydramine Hcl 25 Mg Capsule) 25 mg PO BEDTIME PRN PRN Reason: allergies Last Admin: 01/10/23 20:16 Dose: 25 mg Divalproex Sodium (Divalproex Sodium Er 250 Mg Tab.Er.24h) 750 mg PO BID [facility] Last Admin: 01/14/23 09:41 Dose: 750 mg Hydroxyzine HCl (Hydroxyzine Hcl 25 Mg Tablet) 25 mg PO Q6H PRN PRN Reason: Anxiety Magnesium Hydroxide (Milk Of Magnesia 30 Ml Oral.Susp) 30 ml PO DAILY PRN PRN Reason: Constipation Patient Own Med ( Dalfampridine 10 Mg Tablet Extended Release 12 Hr) 10 mg PO BID [facility] Last Admin: 01/14/23 09:56 Dose: 10 mg Patient Own Medication ( Fingolimod 0.5 Mg) 1 each PO DAILY [facility] Last Admin: 01/14/23 09:56 Dose: 1 each Oxybutynin Chloride (Oxybutynin Chloride Er 5 Mg Tab.Er.24) 5 mg PO DAILY [facility] Last Admin: 01/14/23 09:41 Dose: 5 mg Risperidone (Risperidone 3 Mg Tablet) 3 mg PO BEDTIME [facility] Last Admin: 01/13/23 20:30 Dose: 3 mg Trazodone HCl (Trazodone Hcl 100 Mg Tablet) 100 mg PO BEDTIME [facility] Last Admin: 01/13/23 20:30 Dose: 100 mg Trazodone HCl (Trazodone Hcl 50 Mg Tablet) 50 mg PO BEDTIME PRN PRN Reason: Insomnia Vitamin D (Cholecalciferol (Vitamin D3) 25 Mcg Tablet) 25 mcg PO DAILY [facility] Last Admin: 01/14/23 09:42 Dose: 25 mcg Allergies Allergies Allergy/AdvReac Type Severity Reaction Status Date / Time phenytoin [Dilantin] Allergy Unknown unknown Verified 01/09/23 19:13 From Dilantin Allergy Unknown UNKNOWN Uncoded 01/09/23 19:13 Assessment & Plan Patient educated on: medication risk/benefits and therapeutic strategies Informed Consent: understands and further education needed Reason for continued inpatient stay Substantial Risk for: rapid decompensation Time Spent With Patient Time: Total time managing care of this patient today ____ minutes.
[2023-01-14] MEDS: hydrOXYzine HCL 25 MG TABLET PO (17:45)
[2023-01-14 20:30] VITALS: BP 145/95; PULSE 92; TEMP 36.6
[2023-01-14] MEDS: traZODone HCL 100 MG TABLET PO (20:34)
[2023-01-14] MEDS: risperiDONE 3 MG TABLET PO (20:34)
[2023-01-15 08:00] VITALS: BP 108/53; PULSE 71; RESP 16; TEMP 36.3; O2SAT 97
[2023-01-15] MEDS: oxyBUTYnin chloride ER 5 MG TAB.ER.24 PO (09:18)
[2023-01-15] MEDS: Diclofenac Sodium Delayed Rel 50 MG TABLET.DR PO ×2 (09:18→20:52)
[2023-01-15] MEDS: Divalproex Sodium ER 250 MG TAB.ER.24H 750 MG PO ×2 (09:19→20:52)
[2023-01-15] MEDS: Cholecalciferol (Vitamin D3) 25 MCG TABLET PO (09:19)
--- NOTE | 2023-01-15 10:12 | HO.PSYCHPN ---
Subjective Subjective Date of Service: 01/15/23 Reason For Visit: Bipolar Disorder with Psychosis Subjective Notes: Conditional Voluntary Healthcare Proxy: No Guardianship: No Medical Problems Affecting Mental Status: No Interim History: Pt reports significant fear, paranoia of others. Reports poor sleep due to fear of the checks process. At night, things are very wierd . I had to get on the floor . Fearful of noises, people, checks, being looked at, being harmed if he sleeps, that is why I sleep mostly when it is light out. Pt declined to sign his Medicare paperwork per team due to this fear. He is willing to increase medication as he admits this feeling is painful. Medication Compliance: Yes Side effects from medications: No Attending Groups: No Review of Systems Acute medical concerns: No Medical Review of Systems: unchanged Mental Status Exam Mental Status Exam Patient Appearance: Appropriate Patient Orientation: Person, Place, Time and Situation Level of Consciousness: Alert Patient Behavior: Appropriate, Guarded, Talkative, Cooperative, Suspicious and Good Eye Contact Mood Description: Anxious and Apprehensive Affect Description: Anxious and Apprehensive Patient Cognition Impaired: No Ability to Follow Directions: Good Speech Pattern: Spontaneous Speech Memory Description: Episodic Impaired Hallucinations: None Delusions: Paranoid Ideation Thought Process: Distracted Thought Content: positive for Flight of Ideas, positive for Circumstantial, positive for Tangential, positive for Suicidal Ideation (denies) and positive for Homicidal Ideation (denies) Depressive Symptoms: Insomnia, Difficulty Sleeping and Difficulty Concentrating Judgement: Fair Diagnostics Vital Signs (24Hr): Vital Signs - 24 hr 01/14/23 20:30 01/15/23 08:00 Temperature 97.9 F 97.4 F Pulse Rate 92 71 Respiratory Rate 16 Blood Pressure 145/95 H 108/53 L Pulse Oximetry 97 Oxygen Delivery Method Room Air BMI result Body Mass Index 32.5 Labs 01/09/23 23:25 01/13/23 07:53 Medications Medications Current Medications Acetaminophen (Acetaminophen 325 Mg Tablet) 650 mg PO Q6H PRN PRN Reason: Headache/Pain Mild Scale (1-3) Al Hydroxide/Mg Hydroxide (Magnesium Hydrox/Alum Hydrox 30 Ml Oral.Susp) 30 ml PO Q6H PRN PRN Reason: Heartburn/Nausea Diclofenac Sodium (Diclofenac Sodium Delayed Rel 50 Mg Tablet.Dr) 50 mg PO BID [facility] Last Admin: 01/15/23 09:18 Dose: 50 mg Diphenhydramine HCl (Diphenhydramine Hcl 25 Mg Capsule) 25 mg PO BEDTIME PRN PRN Reason: allergies Last Admin: 01/10/23 20:16 Dose: 25 mg Divalproex Sodium (Divalproex Sodium Er 250 Mg Tab.Er.24h) 750 mg PO BID [facility] Last Admin: 01/15/23 09:19 Dose: 750 mg Hydroxyzine HCl (Hydroxyzine Hcl 25 Mg Tablet) 25 mg PO Q6H PRN PRN Reason: Anxiety Last Admin: 01/14/23 17:45 Dose: 25 mg Magnesium Hydroxide (Milk Of Magnesia 30 Ml Oral.Susp) 30 ml PO DAILY PRN PRN Reason: Constipation Patient Own Med ( Dalfampridine 10 Mg Tablet Extended Release 12 Hr) 10 mg PO BID [facility] Last Admin: 01/15/23 09:19 Dose: 10 mg Patient Own Medication ( Fingolimod 0.5 Mg) 1 each PO DAILY [facility] Last Admin: 01/15/23 09:19 Dose: 1 each Oxybutynin Chloride (Oxybutynin Chloride Er 5 Mg Tab.Er.24) 5 mg PO DAILY [facility] Last Admin: 01/15/23 09:18 Dose: 5 mg Risperidone (Risperidone 3 Mg Tablet) 3 mg PO BEDTIME [facility] Last Admin: 01/14/23 20:34 Dose: 3 mg Risperidone (Risperidone 2 Mg Tablet) 2 mg PO DAILY [facility] Trazodone HCl (Trazodone Hcl 100 Mg Tablet) 100 mg PO BEDTIME [facility] Last Admin: 01/14/23 20:34 Dose: 100 mg Trazodone HCl (Trazodone Hcl 50 Mg Tablet) 50 mg PO BEDTIME PRN PRN Reason: Insomnia Vitamin D (Cholecalciferol (Vitamin D3) 25 Mcg Tablet) 25 mcg PO DAILY [facility] Last Admin: 01/15/23 09:19 Dose: 25 mcg Allergies Allergies Allergy/AdvReac Type Severity Reaction Status Date / Time phenytoin [Dilantin] Allergy Unknown unknown Verified 01/09/23 19:13 From Dilantin Allergy Unknown UNKNOWN Uncoded 01/09/23 19:13 Assessment & Plan Assessment & Plan (1) Bipolar disorder with psychotic features: Status: Acute Code(s): F31.9 - Bipolar disorder, unspecified Plan 42 yo male, history of bipolar disorder with psychotic features and with fixed delusions regarding neighbors keeping him awake and potentially harming him. Pt is concerned with his level of paranoia and concerned he is becoming manic. Plan: Continue regime, adjust as needed and as pt will allow Collateral contact Diagnostics, Valporate 70.9 on admission 01/15/23- Add Risperdal 2 mg a.m. beginning today. Patient educated on: medication risk/benefits and therapeutic strategies Informed Consent: understands and further education needed Reason for continued inpatient stay Substantial Risk for: rapid decompensation Time Spent With Patient Time: Total time managing care of this patient today ____ minutes.
[2023-01-15] MEDS: risperiDONE 2 MG TABLET PO (10:17)
[2023-01-15 18:00] VITALS: BP 136/80; PULSE 78; RESP 17; TEMP 36.6; O2SAT 97
[2023-01-15] MEDS: traZODone HCL 100 MG TABLET PO (20:52)
[2023-01-15] MEDS: risperiDONE 3 MG TABLET PO (20:52)
[2023-01-15] MEDS: hydrOXYzine HCL 25 MG TABLET PO (20:55)
[2023-01-15] MEDS: diphenhydrAMINE HCL 25 MG CAPSULE PO (22:04)
[2023-01-15] MEDS: traZODone HCL 50 MG TABLET PO (22:04)
[2023-01-16 08:35] VITALS: BP 114/60; PULSE 72; RESP 18; TEMP 36.3; O2SAT 96
[2023-01-16] MEDS: risperiDONE 2 MG TABLET PO (09:36)
[2023-01-16] MEDS: Cholecalciferol (Vitamin D3) 25 MCG TABLET PO (09:36)
[2023-01-16] MEDS: oxyBUTYnin chloride ER 5 MG TAB.ER.24 PO (09:36)
[2023-01-16] MEDS: Divalproex Sodium ER 250 MG TAB.ER.24H 750 MG PO ×2 (09:36→20:45)
[2023-01-16] MEDS: Diclofenac Sodium Delayed Rel 50 MG TABLET.DR PO ×2 (09:36→20:45)
--- NOTE | 2023-01-16 13:04 | HO.PSYCHPN ---
Subjective Subjective Date of Service: 01/16/23 Reason For Visit: Bipolar Disorder with Psychosis Subjective Notes: Conditional Voluntary Healthcare Proxy: No Guardianship: No Medical Problems Affecting Mental Status: No Interim History: Pt agreeable to meet out of his room today. Able to tolerate a room-mate last evening Identifies evening as difficult-loud noises, pt's screaming, I am not feeling safe listening to this . Reports sleep after 12am, however, the checks scare me . Fears of harm. Reports appetite/intake to be adequate. Getting to be is the problem-it is too chaotic up here at bedtime. Please be clear, I feel much better, but I don't like the situation. I would be better at home Pt able to attend [employer] group this afternoon and participate in a relaxed fashion. Medication Compliance: Yes Side effects from medications: No Attending Groups: Yes Review of Systems Acute medical concerns: No Medical Review of Systems: unchanged Mental Status Exam Mental Status Exam Patient Appearance: Appropriate Patient Orientation: Person, Place, Time and Situation Level of Consciousness: Alert Patient Behavior: Appropriate, Guarded, Talkative, Cooperative, Suspicious and Good Eye Contact Mood Description: Anxious and Apprehensive Affect Description: Anxious and Apprehensive Patient Cognition Impaired: No Ability to Follow Directions: Good Speech Pattern: Spontaneous Speech Memory Description: Episodic Impaired Hallucinations: None Delusions: Paranoid Ideation Thought Process: Distracted Thought Content: positive for Flight of Ideas, positive for Circumstantial, positive for Tangential, positive for Suicidal Ideation (denies) and positive for Homicidal Ideation (denies) Depressive Symptoms: Insomnia, Difficulty Sleeping and Difficulty Concentrating Judgement: Fair Diagnostics Vital Signs (24Hr): Vital Signs - 24 hr 01/15/23 18:00 01/16/23 08:35 Temperature 97.8 F 97.4 F Pulse Rate 78 72 Respiratory Rate 17 18 Blood Pressure 136/80 114/60 Pulse Oximetry 97 96 Oxygen Delivery Method Room Air Room Air BMI result Body Mass Index 32.5 Labs 01/09/23 23:25 01/13/23 07:53 Medications Medications Current Medications Acetaminophen (Acetaminophen 325 Mg Tablet) 650 mg PO Q6H PRN PRN Reason: Headache/Pain Mild Scale (1-3) Al Hydroxide/Mg Hydroxide (Magnesium Hydrox/Alum Hydrox 30 Ml Oral.Susp) 30 ml PO Q6H PRN PRN Reason: Heartburn/Nausea Diclofenac Sodium (Diclofenac Sodium Delayed Rel 50 Mg Tablet.Dr) 50 mg PO BID [facility] [place] Last Admin: 01/16/23 09:36 Dose: 50 mg Diphenhydramine HCl (Diphenhydramine Hcl 25 Mg Capsule) 25 mg PO BEDTIME PRN PRN Reason: allergies Last Admin: 01/15/23 22:04 Dose: 25 mg Divalproex Sodium (Divalproex Sodium Er 250 Mg Tab.Er.24h) 750 mg PO BID [facility] [place] Last Admin: 01/16/23 09:36 Dose: 750 mg Hydroxyzine HCl (Hydroxyzine Hcl 25 Mg Tablet) 25 mg PO Q6H PRN PRN Reason: Anxiety Last Admin: 01/15/23 20:55 Dose: 25 mg Magnesium Hydroxide (Milk Of Magnesia 30 Ml Oral.Susp) 30 ml PO DAILY PRN PRN Reason: Constipation Patient Own Med ( Dalfampridine 10 Mg Tablet Extended Release 12 Hr) 10 mg PO BID [facility] Last Admin: 01/16/23 09:44 Dose: 10 mg Patient Own Medication ( Fingolimod 0.5 Mg) 1 each PO DAILY [facility] Last Admin: 01/16/23 09:44 Dose: 1 each Oxybutynin Chloride (Oxybutynin Chloride Er 5 Mg Tab.Er.24) 5 mg PO DAILY [facility] [place] Last Admin: 01/16/23 09:36 Dose: 5 mg Risperidone (Risperidone 3 Mg Tablet) 3 mg PO BEDTIME [facility] [place] Last Admin: 01/15/23 20:52 Dose: 3 mg Risperidone (Risperidone 2 Mg Tablet) 2 mg PO DAILY [facility] [place] Last Admin: 01/16/23 09:36 Dose: 2 mg Trazodone HCl (Trazodone Hcl 100 Mg Tablet) 100 mg PO BEDTIME [facility] Last Admin: 01/15/23 20:52 Dose: 100 mg Trazodone HCl (Trazodone Hcl 50 Mg Tablet) 50 mg PO BEDTIME PRN PRN Reason: Insomnia Last Admin: 01/15/23 22:04 Dose: 50 mg Vitamin D (Cholecalciferol (Vitamin D3) 25 Mcg Tablet) 25 mcg PO DAILY [facility] [place] Last Admin: 01/16/23 09:36 Dose: 25 mcg Allergies Allergies Allergy/AdvReac Type Severity Reaction Status Date / Time phenytoin [Dilantin] Allergy Unknown unknown Verified 01/09/23 19:13 From Dilantin Allergy Unknown UNKNOWN Uncoded 01/09/23 19:13 Assessment & Plan Assessment & Plan (1) Bipolar disorder with psychotic features: Status: Acute Code(s): F31.9 - Bipolar disorder, unspecified Plan 42 yo male, history of bipolar disorder with psychotic features and with fixed delusions regarding neighbors keeping him awake and potentially harming him. Pt is concerned with his level of paranoia and concerned he is becoming manic. Plan: Continue regime, adjust as needed and as pt will allow Collateral contact Bradley, Otilio 70.9 on admission 01/16/23 Continue regime and plan of care. Patient educated on: medication risk/benefits and therapeutic strategies Informed Consent: understands Reason for continued inpatient stay Substantial Risk for: rapid decompensation Time Spent With Patient Time: Total time managing care of this patient today ____ minutes.
[2023-01-16 16:22] VITALS: BP 149/101; PULSE 119; RESP 18; TEMP 36.6; O2SAT 94
[2023-01-16] MEDS: Benztropine Mesylate 1 MG TABLET PO (20:45)
[2023-01-16] MEDS: traZODone HCL 100 MG TABLET PO (20:45)
[2023-01-16] MEDS: risperiDONE 3 MG TABLET PO (20:45)
[2023-01-17 06:00] VITALS: BP 101/57; PULSE 81; RESP 16; TEMP 35.6; O2SAT 96
[2023-01-17] MEDS: oxyBUTYnin chloride ER 5 MG TAB.ER.24 PO (09:17)
[2023-01-17] MEDS: Benztropine Mesylate 1 MG TABLET PO ×2 (09:18→21:22)
[2023-01-17] MEDS: risperiDONE 2 MG TABLET PO (09:18)
[2023-01-17] MEDS: Cholecalciferol (Vitamin D3) 25 MCG TABLET PO (09:18)
[2023-01-17] MEDS: Diclofenac Sodium Delayed Rel 50 MG TABLET.DR PO ×2 (09:18→21:21)
[2023-01-17] MEDS: Divalproex Sodium ER 250 MG TAB.ER.24H 750 MG PO ×2 (09:18→21:22)
--- NOTE | 2023-01-17 09:52 | P.PNPSI_ITS ---
Subjective Subjective Date of Service: 01/17/23 Reason For Visit: Bipolar Disorder with Psychosis Interim History: With patient; discussed with team; reviewed notes Patient says I feel okay I guess... I feel ready to go.... He says he is definitely feeling better than when he came in, that he is sleeping well and denies any AVH. He said he no longer has any paranoid thinking which he says is now resolved. No complaints and no other requests. Reported that with Cogentin less stiffness in the legs Mental Status Exam Mental Status Exam Narrative: Pt is alert and oriented; behavior is cooperative, friendly and calm; patient is not in distress; dressed in casual attire with adequate hygiene; mood is described as okay I guess... good and affect congruent; eye contact appropriate; Speech is normal rate, volume and prosody and not pressured; no psychomotor agitation/retardation present; thought process is organized and goal directed; Thought content is on tx, discharge; otherwise pertinent to relevant topics and without any delusional content, paranoid ideations or grandiosity; denies any SI/HI. There is no evidence of perceptual disturbance. Patients insight and judgment appear intact. Diagnostics Vital Signs (24Hr): Vital Signs - 24 hr 01/16/23 16:22 01/17/23 06:00 Temperature 97.8 F 96.1 F L Pulse Rate 119 H 81 Respiratory Rate 18 16 Blood Pressure 149/101 H 101/57 L Pulse Oximetry 94 96 Oxygen Delivery Method Room Air Room Air BMI result Body Mass Index 32.5 Labs 01/09/23 23:25 01/13/23 07:53 Medications Medications Current Medications Acetaminophen (Acetaminophen 325 Mg Tablet) 650 mg PO Q6H PRN PRN Reason: Headache/Pain Mild Scale (1-3) Al Hydroxide/Mg Hydroxide (Magnesium Hydrox/Alum Hydrox 30 Ml Oral.Susp) 30 ml PO Q6H PRN PRN Reason: Heartburn/Nausea Benztropine Mesylate (Benztropine Mesylate 1 Mg Tablet) 1 mg PO BID [facility] Last Admin: 01/17/23 09:18 Dose: 1 mg Diclofenac Sodium (Diclofenac Sodium Delayed Rel 50 Mg Tablet.) 50 mg PO BID [facility] Last Admin: 01/17/23 09:18 Dose: 50 mg Diphenhydramine HCl (Diphenhydramine Hcl 25 Mg Capsule) 25 mg PO BEDTIME PRN PRN Reason: allergies Last Admin: 01/15/23 22:04 Dose: 25 mg Divalproex Sodium (Divalproex Sodium Er 250 Mg Tab.Er.24h) 750 mg PO BID [facility] Last Admin: 01/17/23 09:18 Dose: 750 mg Hydroxyzine HCl (Hydroxyzine Hcl 25 Mg Tablet) 25 mg PO Q6H PRN PRN Reason: Anxiety Last Admin: 01/15/23 20:55 Dose: 25 mg Magnesium Hydroxide (Milk Of Magnesia 30 Ml Oral.Susp) 30 ml PO DAILY PRN PRN Reason: Constipation Patient Own Med ( Dalfampridine 10 Mg Tablet Extended Release 12 Hr) 10 mg PO BID [facility] Last Admin: 01/17/23 09:24 Dose: Not Given Patient Own Medication ( Fingolimod 0.5 Mg) 1 each PO DAILY [facility] Last Admin: 01/17/23 09:14 Dose: 1 each Oxybutynin Chloride (Oxybutynin Chloride Er 5 Mg Tab.Er.24) 5 mg PO DAILY [facility] Last Admin: 01/17/23 09:17 Dose: 5 mg Risperidone (Risperidone 3 Mg Tablet) 3 mg PO BEDTIME [facility] Last Admin: 01/16/23 20:45 Dose: 3 mg Risperidone (Risperidone 2 Mg Tablet) 2 mg PO DAILY [facility] Last Admin: 01/17/23 09:18 Dose: 2 mg Trazodone HCl (Trazodone Hcl 100 Mg Tablet) 100 mg PO BEDTIME [facility] Last Admin: 01/16/23 20:45 Dose: 100 mg Trazodone HCl (Trazodone Hcl 50 Mg Tablet) 50 mg PO BEDTIME PRN PRN Reason: Insomnia Last Admin: 01/15/23 22:04 Dose: 50 mg Vitamin D (Cholecalciferol (Vitamin D3) 25 Mcg Tablet) 25 mcg PO DAILY [facility] Last Admin: 01/17/23 09:18 Dose: 25 mcg Allergies Allergies Allergy/AdvReac Type Severity Reaction Status Date / Time phenytoin [Dilantin] Allergy Unknown unknown Verified 01/09/23 19:13 From Dilantin Allergy Unknown UNKNOWN Uncoded 01/09/23 19:13 Assessment & Plan Assessment & Plan (1) Bipolar disorder with psychotic features: Status: Acute Code(s): F31.9 - Bipolar disorder, unspecified Plan 42 yo male, history of bipolar disorder with psychotic features and with fixed delusions regarding neighbors keeping him awake and potentially harming him. Pt is concerned with his level of paranoia and concerned he is becoming manic. Plan: Continue regime, adjust as needed and as pt will allow Collateral contact Diagnostics, Miriamporate 70.9 on admission Hospital course: 01/16/23 Continue regime and plan of care. 01/17 Patient says I feel okay I guess... I feel ready to go.... He says he is definitely feeling better than when he came in, that he is sleeping well and denies any AVH. He said he no longer has any paranoid thinking which he says is now resolved. No complaints and no other requests. Reported that with Cogentin less stiffness in the legs Patient educated on: diagnosis and medication risk/benefits Informed Consent: understands Reason for continued inpatient stay Substantial Risk for: rapid decompensation Time Spent With Patient Time: Total time managing care of this patient today ____ minutes.
[2023-01-17 16:05] VITALS: BP 110/62; PULSE 88; RESP 16; TEMP 36.2; O2SAT 96
[2023-01-17] MEDS: risperiDONE 3 MG TABLET PO (21:21)
[2023-01-17] MEDS: diphenhydrAMINE HCL 25 MG CAPSULE PO (21:22)
[2023-01-17] MEDS: hydrOXYzine HCL 25 MG TABLET PO (21:23)
[2023-01-17] MEDS: traZODone HCL 100 MG TABLET PO (21:26)
[2023-01-18] MEDS: Cholecalciferol (Vitamin D3) 25 MCG TABLET PO (08:22)
[2023-01-18] MEDS: Diclofenac Sodium Delayed Rel 50 MG TABLET.DR PO ×2 (08:22→20:55)
[2023-01-18] MEDS: risperiDONE 2 MG TABLET PO (08:23)
[2023-01-18] MEDS: Benztropine Mesylate 1 MG TABLET PO ×2 (08:23→20:55)
[2023-01-18] MEDS: Divalproex Sodium ER 250 MG TAB.ER.24H 750 MG PO ×2 (08:23→20:56)
[2023-01-18] MEDS: oxyBUTYnin chloride ER 5 MG TAB.ER.24 PO (08:23)
[2023-01-18 09:12] VITALS: BP 132/87; PULSE 97; RESP 17; TEMP 36.6; O2SAT 99
--- NOTE | 2023-01-18 09:57 | HO.PSYCHPN ---
Subjective Subjective Date of Service: 01/18/23 Reason For Visit: Bipolar Disorder with Psychosis Interim History: Met with patient; discussed with team Continues?to?report?that?he?is?doing?much?better,?feeling?better,?says?he?is?thankful?for?help?received. Denies?any?SI Mental Status Exam Mental Status Exam Narrative: Pt is alert and oriented; behavior is cooperative, friendly and calm; patient is not in distress; dressed in casual attire with adequate hygiene; mood is described as okay I guess... good and affect congruent; eye contact appropriate; Speech is normal rate, volume and prosody and not pressured; no psychomotor agitation/retardation present; thought process is organized and goal directed; Thought content is on tx, discharge; otherwise pertinent to relevant topics and without any delusional content, paranoid ideations or grandiosity; denies any SI/HI. There is no evidence of perceptual disturbance. Patients insight and judgment appear intact. Diagnostics Vital Signs (24Hr): Vital Signs - 24 hr 01/17/23 16:05 01/18/23 09:12 Temperature 97.1 F 97.8 F Pulse Rate 88 97 Respiratory Rate 16 17 Blood Pressure 110/62 132/87 Pulse Oximetry 96 99 Oxygen Delivery Method Room Air Room Air BMI result Body Mass Index 32.5 Labs 01/09/23 23:25 01/13/23 07:53 Medications Medications Current Medications Acetaminophen (Acetaminophen 325 Mg Tablet) 650 mg PO Q6H PRN PRN Reason: Headache/Pain Mild Scale (1-3) Al Hydroxide/Mg Hydroxide (Magnesium Hydrox/Alum Hydrox 30 Ml Oral.Susp) 30 ml PO Q6H PRN PRN Reason: Heartburn/Nausea Benztropine Mesylate (Benztropine Mesylate 1 Mg Tablet) 1 mg PO BID [facility] Last Admin: 01/18/23 08:23 Dose: 1 mg Diclofenac Sodium (Diclofenac Sodium Delayed Rel 50 Mg Tablet.Dr) 50 mg PO BID [facility] Last Admin: 01/18/23 08:22 Dose: 50 mg Diphenhydramine HCl (Diphenhydramine Hcl 25 Mg Capsule) 25 mg PO BEDTIME PRN PRN Reason: allergies Last Admin: 01/17/23 21:22 Dose: 25 mg Divalproex Sodium (Divalproex Sodium Er 250 Mg Tab.Er.24h) 750 mg PO BID [facility] Last Admin: 01/18/23 08:23 Dose: 750 mg Hydroxyzine HCl (Hydroxyzine Hcl 25 Mg Tablet) 25 mg PO Q6H PRN PRN Reason: Anxiety Last Admin: 01/17/23 21:23 Dose: 25 mg Magnesium Hydroxide (Milk Of Magnesia 30 Ml Oral.Susp) 30 ml PO DAILY PRN PRN Reason: Constipation Patient Own Med ( Dalfampridine 10 Mg Tablet Extended Release 12 Hr) 10 mg PO BID [facility] Last Admin: 01/18/23 08:23 Dose: 10 mg Patient Own Medication ( Fingolimod 0.5 Mg) 1 each PO DAILY [facility] Last Admin: 01/18/23 08:24 Dose: 1 each Oxybutynin Chloride (Oxybutynin Chloride Er 5 Mg Tab.Er.24) 5 mg PO DAILY [facility] Last Admin: 01/18/23 08:23 Dose: 5 mg Risperidone (Risperidone 3 Mg Tablet) 3 mg PO BEDTIME [facility] Last Admin: 01/17/23 21:21 Dose: 3 mg Risperidone (Risperidone 2 Mg Tablet) 2 mg PO DAILY [facility] Last Admin: 01/18/23 08:23 Dose: 2 mg Trazodone HCl (Trazodone Hcl 100 Mg Tablet) 100 mg PO BEDTIME [facility] Last Admin: 01/17/23 21:26 Dose: 100 mg Trazodone HCl (Trazodone Hcl 50 Mg Tablet) 50 mg PO BEDTIME PRN PRN Reason: Insomnia Last Admin: 01/15/23 22:04 Dose: 50 mg Vitamin D (Cholecalciferol (Vitamin D3) 25 Mcg Tablet) 25 mcg PO DAILY [facility] Last Admin: 01/18/23 08:22 Dose: 25 mcg Allergies Allergies Allergy/AdvReac Type Severity Reaction Status Date / Time phenytoin [Dilantin] Allergy Unknown unknown Verified 01/09/23 19:13 From Dilantin Allergy Unknown UNKNOWN Uncoded 01/09/23 19:13 Assessment & Plan Assessment & Plan (1) Bipolar disorder with psychotic features: Status: Acute Code(s): F31.9 - Bipolar disorder, unspecified Plan 42 yo male, history of bipolar disorder with psychotic features and with fixed delusions regarding neighbors keeping him awake and potentially harming him. Pt is concerned with his level of paranoia and concerned he is becoming manic. Plan: Continue regime, adjust as needed and as pt will allow Collateral contact Diagnostics, Otilio 70.9 on admission Hospital course: 01/16/23 Continue regime and plan of care. 01/17 Patient says I feel okay I guess... I feel ready to go.... He says he is definitely feeling better than when he came in, that he is sleeping well and denies any AVH. He said he no longer has any paranoid thinking which he says is now resolved. No complaints and no other requests. Reported that with Cogentin less stiffness in the legs 01/18?continue?current?regimen Patient educated on: diagnosis Informed Consent: understands Reason for continued inpatient stay Substantial Risk for: stable for discharge Time Spent With Patient Time: Total time managing care of this patient today ____ minutes.
[2023-01-18 16:40] VITALS: BP 135/74; PULSE 68; RESP 16; TEMP 36.5; O2SAT 97
[2023-01-18] MEDS: risperiDONE 3 MG TABLET PO (20:55)
[2023-01-18] MEDS: traZODone HCL 100 MG TABLET PO (20:55)
[2023-01-18] MEDS: traZODone HCL 50 MG TABLET PO (23:10)
[2023-01-19] MEDS: Diclofenac Sodium Delayed Rel 50 MG TABLET.DR PO ×2 (08:02→21:16)
[2023-01-19] MEDS: Divalproex Sodium ER 250 MG TAB.ER.24H 750 MG PO ×2 (08:03→21:17)
[2023-01-19] MEDS: Cholecalciferol (Vitamin D3) 25 MCG TABLET PO (08:03)
[2023-01-19] MEDS: risperiDONE 2 MG TABLET PO (08:03)
[2023-01-19] MEDS: Benztropine Mesylate 1 MG TABLET PO ×2 (08:03→21:17)
[2023-01-19] MEDS: oxyBUTYnin chloride ER 5 MG TAB.ER.24 PO (08:03)
[2023-01-19 09:03] LABS: Valproate 86.1 mcg/mL (50.0-100.0)
[2023-01-19 09:11] LABS: Ammonia 39 umol/L (13-55)
[2023-01-19 09:18] VITALS: BP 156/69; PULSE 97; RESP 18; O2SAT 97
[2023-01-19 11:10] LABS: Alanine Aminotransferase 55 U/L (0-40); Albumin Level 4.4 g/dL (3.5-5.0); Alkaline Phosphatase 71 U/L (39-117); Aspartate Amino Transferase 26 U/L (5-37); Bilirubin Direct 0.2 mg/dL (0.0-0.5); Bilirubin Total 0.6 mg/dL (0.0-1.0); Total Protein 7.1 g/dL (6.5-8.0)
--- NOTE | 2023-01-19 14:37 | P.PNPSI_ITS ---
Subjective Subjective Date of Service: 01/19/23 Reason For Visit: Bipolar Disorder with Psychosis Subjective Notes: Conditional Voluntary Healthcare Proxy: No Guardianship: No Medical Problems Affecting Mental Status: No Interim History: Team report a positive weekend for Raf. 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 Family meeting with pt, mother, Denilson TYLER. Discharge planning discussed. Pt will discharge on 01/20/23 with services, [employer] [facility], [facility] and out patient appointments. Mother believes pt to be improved and prepared to discharge as well. Medication Compliance: Yes Side effects from medications: No Attending Groups: No Review of Systems Acute medical concerns: No Medical Review of Systems: unchanged Mental Status Exam Mental Status Exam Patient Appearance: Appropriate Patient Orientation: Person, Place, Time and Situation Level of Consciousness: Alert Patient Behavior: Talkative and Good Eye Contact Mood Description: Appropriate and Apprehensive Affect Description: Appropriate and Apprehensive Patient Cognition Impaired: No Ability to Follow Directions: Good Speech Pattern: Spontaneous Speech Memory Description: Intact Hallucinations: None Delusions: Not Present Thought Process: Intact and Goal Oriented Thought Content: positive for Intact and positive for Goal Oriented Depressive Symptoms: Thoughts of /Suicide (denies) Judgement: Good Diagnostics Vital Signs (24Hr): Vital Signs - 24 hr 01/18/23 16:40 01/19/23 09:18 Temperature 97.7 F Pulse Rate 68 97 Respiratory Rate 16 18 Blood Pressure 135/74 156/69 H Pulse Oximetry 97 97 Oxygen Delivery Method Room Air Room Air BMI result Body Mass Index 32.5 Labs 01/09/23 23:25 01/13/23 07:53 Labs: Laboratory Results - last 48 hr 01/19/23 08:06 Total Bilirubin 0.6 Direct Bilirubin 0.2 AST 26 ALT 55 H Alkaline Phosphatase 71 Ammonia 39 Total Protein 7.1 Albumin 4.4 Valproic Acid 86.1 Medications Medications Current Medications Acetaminophen (Acetaminophen 325 Mg Tablet) 650 mg PO Q6H PRN PRN Reason: Headache/Pain Mild Scale (1-3) Al Hydroxide/Mg Hydroxide (Magnesium Hydrox/Alum Hydrox 30 Ml Oral.Susp) 30 ml PO Q6H PRN PRN Reason: Heartburn/Nausea Benztropine Mesylate (Benztropine Mesylate 1 Mg Tablet) 1 mg PO BID [facility] Last Admin: 01/19/23 08:03 Dose: 1 mg Diclofenac Sodium (Diclofenac Sodium Delayed Rel 50 Mg Tablet.Dr) 50 mg PO BID [facility] Last Admin: 01/19/23 08:02 Dose: 50 mg Diphenhydramine HCl (Diphenhydramine Hcl 25 Mg Capsule) 25 mg PO BEDTIME PRN PRN Reason: allergies Last Admin: 01/17/23 21:22 Dose: 25 mg Divalproex Sodium (Divalproex Sodium Er 250 Mg Tab.Er.24h) 750 mg PO BID [facility] Last Admin: 01/19/23 08:03 Dose: 750 mg Hydroxyzine HCl (Hydroxyzine Hcl 25 Mg Tablet) 25 mg PO Q6H PRN PRN Reason: Anxiety Last Admin: 01/17/23 21:23 Dose: 25 mg Magnesium Hydroxide (Milk Of Magnesia 30 Ml Oral.Susp) 30 ml PO DAILY PRN PRN Reason: Constipation Patient Own Med ( Dalfampridine 10 Mg Tablet Extended Release 12 Hr) 10 mg PO BID [facility] Last Admin: 01/19/23 08:02 Dose: 10 mg Patient Own Medication ( Fingolimod 0.5 Mg) 1 each PO DAILY [facility] Last Admin: 01/19/23 08:02 Dose: 1 each Oxybutynin Chloride (Oxybutynin Chloride Er 5 Mg Tab.Er.24) 5 mg PO DAILY [facility] Last Admin: 01/19/23 08:03 Dose: 5 mg Risperidone (Risperidone 3 Mg Tablet) 3 mg PO BEDTIME [facility] Last Admin: 01/18/23 20:55 Dose: 3 mg Risperidone (Risperidone 2 Mg Tablet) 2 mg PO DAILY [facility] Last Admin: 01/19/23 08:03 Dose: 2 mg Trazodone HCl (Trazodone Hcl 100 Mg Tablet) 100 mg PO BEDTIME [facility] Last Admin: 01/18/23 20:55 Dose: 100 mg Trazodone HCl (Trazodone Hcl 50 Mg Tablet) 50 mg PO BEDTIME PRN PRN Reason: Insomnia Last Admin: 01/18/23 23:10 Dose: 50 mg Vitamin D (Cholecalciferol (Vitamin D3) 25 Mcg Tablet) 25 mcg PO DAILY [facility] Last Admin: 01/19/23 08:03 Dose: 25 mcg Allergies Allergies Allergy/AdvReac Type Severity Reaction Status Date / Time phenytoin [Dilantin] Allergy Unknown unknown Verified 01/09/23 19:13 From Dilantin Allergy Unknown UNKNOWN Uncoded 01/09/23 19:13 Assessment & Plan Assessment & Plan (1) Bipolar disorder with psychotic features: Status: Acute Code(s): F31.9 - Bipolar disorder, unspecified Plan 42 yo male, history of bipolar disorder with psychotic features and with fixed delusions regarding neighbors keeping him awake and potentially harming him. Pt is concerned with his level of paranoia and concerned he is becoming manic. Plan: Continue regime, adjust as needed and as pt will allow Collateral contact Diagnostics, Otilio 70.9 on admission Hospital course: 01/16/23 Continue regime and plan of care. 01/17 Patient says I feel okay I guess... I feel ready to go.... He says he is definitely feeling better than when he came in, that he is sleeping well and denies any AVH. He said he no longer has any paranoid thinking which he says is now resolved. No complaints and no other requests. Reported that with Cogentin less stiffness in the legs 01/18?continue?current?regimen 01/19/23 Discharge 01/20. Patient educated on: therapeutic strategies Guardian/Caregiver educated on: therapeutic strategies Informed Consent: understands Reason for continued inpatient stay Substantial Risk for: stable for discharge Time Spent With Patient Time: Total time managing care of this patient today ____ minutes.
[2023-01-19 18:00] VITALS: BP 138/76; PULSE 78; TEMP 36.8
[2023-01-19] MEDS: risperiDONE 3 MG TABLET PO (21:16)
[2023-01-19] MEDS: traZODone HCL 100 MG TABLET PO (21:18)
[2023-01-20 08:30] VITALS: BP 141/78; PULSE 94; RESP 16; TEMP 36.1; O2SAT 96
[2023-01-20] MEDS: Acetaminophen 325 MG TABLET 650 MG PO (08:45)
[2023-01-20] MEDS: Divalproex Sodium ER 250 MG TAB.ER.24H 750 MG PO (08:46)
[2023-01-20] MEDS: oxyBUTYnin chloride ER 5 MG TAB.ER.24 PO (08:46)
[2023-01-20] MEDS: Cholecalciferol (Vitamin D3) 25 MCG TABLET PO (08:46)
[2023-01-20] MEDS: risperiDONE 2 MG TABLET PO (08:46)
[2023-01-20] MEDS: Benztropine Mesylate 1 MG TABLET PO (08:46)
[2023-01-20] MEDS: Diclofenac Sodium Delayed Rel 50 MG TABLET.DR PO (08:46)
[2023-01-20 09:06] LABS: MANUAL DIFF FLAG NO
[2023-01-20 09:10] LABS: Basophils Percent Auto 0.4 % (0-2); Eosinophils Absolute Auto 0.1 X10*3/uL (0.0-0.4); Eosinophils Percent Auto 1.4 % (0-4); Hemoglobin 14.3 g/dl (14.0-18.0); Imm Gran Abs Auto 0.02 X10*3/uL (0.00-0.03); Imm Gran Pct Auto 0.4 % (0.0-0.4); Lymphocytes Absolute Auto 1.4 X10*3/uL (1.2-4.9); Lymphocytes Percent Auto 28.1 % (20-40); Mean Corpuscular Hemoglobin 30.5 pg (27.0-33.0); Mean Corpuscular Volume 89.6 fL (80.0-98.0); Mean Platelet Volume 11.3 fL (9.4-12.4); Monocytes Absolute Auto 0.7 X10*3/uL (0.1-1.2); Monocytes Percent Auto 13.6 % (2-11); Neutrophils Absolute Auto 2.8 x10*3/uL (2.0-8.3); Neutrophils Percent Auto 56.1 % (45-73); Platelet Count 244 X10*3/uL (160-400); Red Blood Count 4.69 X10*6/uL (4.60-5.80); Red Cell Distribution Width 14.2 % (11.0-16.0)
[2023-01-20 09:26] LABS: Valproate 83.4 mcg/mL (50.0-100.0)
[2023-01-20 09:33] LABS: Alanine Aminotransferase 54 U/L (0-40); Albumin Level 4.3 g/dL (3.5-5.0); Alkaline Phosphatase 72 U/L (39-117); Anion Gap 16 (12-20); Aspartate Amino Transferase 27 U/L (5-37); Bilirubin Total 0.5 mg/dL (0.0-1.0); Blood Urea Nitrogen 25 mg/dL (9-16); Calcium 9.8 mg/dL (8.4-10.2); Carbon Dioxide 21 mmol/L (22-29); Chloride 109 mmol/L (96-108); Estimated Glomerular Filt Rate > 60; Glucose Random 103 mg/dL (60-115); Potassium 4.1 mmol/L (3.3-5.1); Sodium 142 mmol/L (135-145)
--- NOTE | 2023-01-20 16:02 | P.DS_ITS ---
DS: Providers Provider Date of Service: 01/20/23 Date of admission: 01/12/23 12:52 Date of discharge: 01/20/23 Primary care physician: Konrad Mercado MD Admitting clinician: Liss Tariq Attending physician on admission: Beto Martini Consults: 01/13/23 15:54 Consult to Hospitalist Routine Comment: Consulting Provider: Hospitalist Reason For Exam: [place] [facility] physician on discharge: Beto Martini Discharging clinician: Liss Tariq DS: Diagnosis Discharge Diagnosis (1) Bipolar disorder with psychotic features: Status: Acute DS: Medications Discharge Medications Home Medications: Home Medications Medication Instructions Recorded Confirmed dalfampridine 10 mg 10 mg PO BID 01/09/23 01/09/23 tablet,extended release,12 hr diclofenac sodium 50 mg 50 mg PO BID 01/09/23 01/09/23 tablet,delayed release diphenhydramine HCl 25 mg tablet 25 mg PO BEDTIME PRN allergies 01/09/23 01/09/23 (Autumn-Dryl) fingolimod 0.5 mg capsule 0.5 mg PO DAILY 01/09/23 01/09/23 oxybutynin chloride 5 mg 5 mg PO DAILY 01/09/23 01/09/23 tablet,extended release 24 hr Previous Rx's Medication Instructions Recorded melatonin 10 mg capsule 10 mg PO BEDTIME PRN sleep #20 caps 01/09/23 benztropine 1 mg tablet 1 mg PO BID #60 tabs 01/19/23 cholecalciferol (vitamin D3) 25 25 mcg PO DAILY #30 tabs 01/19/23 mcg (1,000 unit) tablet (Vitamin D3) divalproex 250 mg tablet,extended 750 mg (3 x 250 mg) PO BID #180 01/19/23 release 24 hr tabs risperidone 2 mg tablet 2 mg PO DAILY #30 tabs 01/19/23 risperidone 3 mg tablet 3 mg PO BEDTIME #30 tabs 01/19/23 trazodone 100 mg tablet 100 mg PO DAILY #30 tabs 01/19/23 Mental Status Exam Mental Status Exam Patient Appearance: Appropriate Patient Orientation: Person, Place, Time and Situation Level of Consciousness: Alert Patient Behavior: Talkative and Good Eye Contact Mood Description: Appropriate and Apprehensive Affect Description: Appropriate and Apprehensive Patient Cognition Impaired: No Ability to Follow Directions: Good Speech Pattern: Spontaneous Speech Memory Description: Intact Hallucinations: None Delusions: Not Present Thought Process: Intact and Goal Oriented Thought Content: positive for Intact and positive for Goal Oriented Depressive Symptoms: Thoughts of /Suicide (denies) Judgement: Good Data Data Completed and Pending Completed studies during hospitalization [Text1]: 01/19/23 01/20/23 01/20/23 08:06 08:10 08:11 WBC 5.0 RBC 4.69 Hgb 14.3 Hct 42.0 MCV 89.6 MCH 30.5 MCHC 34.0 RDW 14.2 Plt Count 244 MPV 11.3 Immature Gran % (Auto) 0.4 Neut % (Auto) 56.1 Lymph % (Auto) 28.1 [place] % (Auto) 13.6 H Eos % (Auto) 1.4 Baso % (Auto) 0.4 Lymph # (Auto) 1.4 [place] # (Auto) 0.7 Eos # (Auto) 0.1 Baso # (Auto) 0.0 Abs Immat Gran (auto) 0.02 Absolute Neuts (auto) 2.8 Absolute Nucleated RBC 0.000 Nucleated RBC % (auto) 0.0 Sodium 142 Potassium 4.1 Chloride 109 H Carbon Dioxide 21 L Anion Gap 16 BUN 25 H Creatinine 0.99 Estim Creat Clear Calc 112.0 Estimated GFR > 60 Random Glucose 103 Calcium 9.8 Total Bilirubin 0.6 0.5 Direct Bilirubin 0.2 AST 26 27 ALT 55 H 54 H Alkaline Phosphatase 71 72 Ammonia 39 Total Protein 7.1 7.0 Albumin 4.4 4.3 Valproic Acid 86.1 83.4 DS: Summary Hospital Course Hospital Course: Admission to adult psychiatry for exacerbation of bipolar disorder with psychosis. Pt reporting symptoms of paranoia, feeling as if he were becoming manic and reporting interference with sleep. On the unit, medicine regime was reviewed and adjusted. Pt was offered full milieu therapy. Symptoms were managed and pt was able to return home with [facility] support. He will return to [facility] for out patient care. Time spent discussing smoking cessation with patient: 3 to 10 minutes Status at Discharge Functional status at discharge: independent ambulation Overall status at discharge: patient is progressing back to baseline Time Spent with Patient Time attestation: Total time managing care of this patient today ____ minutes. Time spent: Greater than 30 minutes Discharge Plan Discharge Anticipated Discharge Date/Time: 01/20/23 12:00 Patient Disposition: Home, Self-Care Discharge Diagnosis: Bipolar Disorder with Psychotic Features Referrals: Home Care [facility] [Other] - 01/20/23 (fax- [phone] A nurse will come to see you today. ) [facility] (therapy) [Other] - 01/27/23 10:00 am (Referral for Hospital discharge services (Therapy) AW to follow-up with you regarding appointment as [facility] did not provide prior to discharge.) [facility] (psychiatry) [Other] - 1 Week (Patient referred for outpatient psychiatric medication management services. SW to follow-up after discharge regarding scheduled appointment as [facility] did not respond prior to discharge.) [facility]: (Community Support Program) [Other] - 1 Week (Patient referred for Community Support Program CSP worker will be in contact with you after discharge to discuss [facility] support they can provide.) Konrad Mercado MD [Primary Care Provider] - 03/04/23 2:00 pm (in office) Discharge Medications: New melatonin 10 mg capsule 10 mg PO BEDTIME PRN (Reason: sleep) Qty: 20 0RF risperidone 2 mg Tablet 2 mg PO DAILY Qty: 30 0RF benztropine 1 mg Tablet 1 mg PO BID Qty: 60 0RF Continued oxybutynin chloride 5 mg tablet extended release 24hr 5 mg PO DAILY dalfampridine 10 mg tablet extended release 12 hr 10 mg PO BID divalproex 250 mg tablet extended release 24 hr 750 mg PO BID Qty: 180 0RF Discontinued risperidone 3 mg tablet 3 mg PO BEDTIME trazodone 100 mg tablet 100 mg PO DAILY cholecalciferol (vitamin D3) [Vitamin D3] 25 mcg (1,000 unit) tablet 25 mcg PO DAILY No Action diphenhydramine HCl [Autumn-Dryl] 25 mg tablet 25 mg PO BEDTIME PRN (Reason: allergies) 30 Days Qty: 30 0RF cholecalciferol (vitamin D3) [Vitamin D3] 25 mcg (1,000 unit) tablet 25 mcg PO DAILY Qty: 30 0RF fingolimod 0.5 mg capsule 0.5 mg PO DAILY 30 Days Qty: 30 1RF risperidone 3 mg tablet 3 mg PO BEDTIME Qty: 30 0RF trazodone 100 mg tablet 100 mg PO DAILY Qty: 30 0RF diclofenac sodium 50 mg tablet,delayed release (DR/EC) 50 mg PO BID 30 Days Qty: 60 1RF Discharge Orders: Discharge Order (Routine); Ordered 01/20/23 Ordered By: Liss Tariq Diet: Advance to usual diet Activity on Discharge: As tolerated Stand Alone Forms: Patient Portal Discharge page, Community Support Care Plan Goals: Mood and Behavioral Stabilization Health Concerns: Mood and Behavioral Stabilization Plan of Treatment: Attend scheduled appointments Take medications as directed Assessment: Scheduled discharge Patient Instructions: Insomnia (ED) Discharge Date/Time: 01/20/23 11:59
== END 2023-01-20 11:59 | disposition home or self-care (01) | DRG 885 ==
LOC: HO.ED 01-11 16:54 → HO.PM5 01-12 12:55
PROVIDERS: Admitting Provider Psychiatry & Neurology Psychiatry; Emergency Provider Emergency Medicine Emergency Medical Services; PCP Family Medicine; Visit Provider Clinical Nurse Specialist Psychiatric/Mental Health, Adult
DX: F31.9 Bipolar disorder, unspecified (principal); Z23 Encounter for immunization; Z20.822 Contact with and (suspected) exposure to COVID-19; Z79.899 Other long term (current) drug therapy
CPT/HCPCS: 36415; 80053; 80061; 80076; 80164; 80307; 81003; 82140; 82607; 82746; 83036; 84443; 85025; 87635; 90686; 93005; 99284; S9485

== ENCOUNTER → 2023-01-12 12:52 | Outpatient (BNV) | payer OTHER, SELFPAY | PROVIDERS: Admitting Provider Psychiatry & Neurology Psychiatry; Emergency Provider Emergency Medicine Emergency Medical Services; PCP Family Medicine; Visit Provider Clinical Nurse Specialist Psychiatric/Mental Health, Adult | DX: F31.2 Bipolar disorder, current episode manic severe with psychotic features (principal) | CPT/HCPCS: 90792; 99231; 99232; 99239 ==

== ENCOUNTER 2023-03-04 13:54 | Outpatient (AMB) | payer OTHER, SELFPAY ==
[2023-03-04 13:58] VITALS: BP 122/70; PULSE 65; O2SAT 96; BMI 29.1
--- NOTE | 2023-03-04 13:58 | MHC.PC.OV ---
Vital Signs 03/04/23 13:58 Height 5 ft 9 in Weight 197 lb BMI 29.1 BP 122/70 Blood Pressure Location Lt brachial Position Sitting Pulse 65 Pulse Source Pulse Oximeter Pulse Oximetry (%) 96 Intake Visit Reasons: [facility] [place] discharge f/u Intake Note: Patient is here for discharge follow up. Allergies phenytoin [Dilantin] Allergy (Unknown, Verified 03/04/23 14:02) unknown From Dilantin Allergy (Unknown, Uncoded 03/04/23 14:02) UNKNOWN Tobacco use date assessed: 12/29/22 HPI [facility] [place] discharge f/u HPI Details 42 y/o male presents to f/u [facility] discharge. Admitted 01/17/23 for evaluation of increasing paranoia. Hx of bipolar disorder. Unclear how long he had been in the emergency department. He states he had been there 9 days and had adjusted his medications. He notes current medication regimen has been working well for him and he is sleeping well. He has a psychiatrist now and sees his counselor once a month. [facility] Medical History (Updated 01/28/23 @ 00:03 by Keyur Mayes) Bipolar disorder with psychotic features Surgical History History of tracheostomy Family History Mother No problems noted. Father No problems noted. 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 and CSR that helps with household tasks) Alcohol intake: former Patient Tobacco Use Status: Former Tobacco user Quit Date: pt reports stopped smoking one year ago Tobacco use type: Cigarette Cigarettes Per Day: 2 e-Cigarette/Vaping Use: Never Used Second Hand Smoke Exposure: No service: No Current occupational status: disabled Current occupational exposures/hazards: No Sexual orientation: Straight/Heterosexual Cognitive needs: Yes (Cane/walker) Hearing needs: No Vision needs: No Questionnaire Thrive Questionnaire Date Thrive assessed: 03/04/22 SAAD-7 AMB Questionnaire SAAD-7 Date SAAD - 7 assessed: 03/04/22 Source: Developed by Drs. Kevin Lobato, Shaina Kate, Charan Villa and colleagues, with an educational michael from [employer]. Physical exam (Primary Care) Vital Signs: Last Vital Signs Pulse 65 03/04/23 13:58 BP 122/70 03/04/23 13:58 Pulse Ox 96 03/04/23 13:58 BMI result Body Mass Index 29.1 Tobacco/Smoking Status: Tobacco use Status Tobacco use date assessed 12/29/22 03/04/23 14:00 Patient Tobacco Use Status Former Tobacco user 03/04/23 14:00 Tobacco use type Cigarette 03/04/23 14:00 e-Cigarette/Vaping Use Never Used 03/04/23 14:00 Thrive Assessment: Date of Thrive Assessment Date Thrive assessed 03/04/22 03/04/23 14:00 Assessment and Plan Assessment & Plan (1) Bipolar disorder with psychotic features: Code(s): F31.9 - Bipolar disorder, unspecified Plan: Inpatient?psychiatric?admission?for?paranoia?and?anxiety. Patient?feels?his?medications?are?now?stable?and?he?is?getting?good?sleep. No?changes?to?his?medication?regimen He?is?seeing?a?therapist?now?and?appears?hopeful?with?this?new?referral. (2) Multiple sclerosis: Code(s): G35 - Multiple sclerosis Plan: Stable (3) Elevated liver enzymes: Code(s): R74.8 - Abnormal levels of other serum enzymes Plan: He?will?get?his?labs?rechecked?prior?to?his?next?visit?in?April Encouraged?exercise?and?weight (4) Essential hypertension: Code(s): I10 - Essential (primary) hypertension Plan: Blood?pressure?is?controlled No?medication?changes?today. Coding Level of Care Code Est Pt Level 4 (92652) Diagnoses Bipolar disorder with psychotic features F31.9 Multiple sclerosis G35 Elevated liver enzymes R74.8 Essential hypertension I10
== END 2023-03-04 14:57 | disposition home or self-care (01) ==
PROVIDERS: PCP Family Medicine; Visit Provider Family Medicine
DX: F31.9 Bipolar disorder, unspecified (principal); G35 Multiple sclerosis; R74.8 Abnormal levels of other serum enzymes; I10 Essential (primary) hypertension
CPT/HCPCS: 99214

== ENCOUNTER 2023-04-28 10:53 | Outpatient (AMB) | payer OTHER, SELFPAY ==
[2023-04-28 11:02] VITALS: BP 135/89; PULSE 72; O2SAT 96; BMI 30.3
--- NOTE | 2023-04-28 11:02 | MHC.PC.OV ---
Vital Signs 04/28/23 11:02 Height 5 ft 9 in Weight 205 lb 4 oz BMI 30.3 BP 135/89 Blood Pressure Location Lt brachial Position Sitting Pulse 72 Pulse Source Pulse Oximeter Pulse Oximetry (%) 96 Oxygen Delivery Method Room Air Intake Visit Reasons: Ext exam with f/u labs, health maint. see comments Intake Note: Patient is here for extended exam and follow up on labs and health maintenance. Allergies phenytoin [Dilantin] Allergy (Unknown, Verified 04/28/23 11:05) unknown From Dilantin Allergy (Unknown, Uncoded 04/28/23 11:05) UNKNOWN Tobacco use date assessed: 04/28/23 HPI Ext exam with f/u labs, health maint. see comments HPI Details 43 y/o male presents for an extended exam with f/u labs and health maintenance. Labs were drawn 01/20/23. Reviewed labs [facility] pt. Elevated ALT of 54. Triglycerides 216. TC 201. LDL 120. HDL low at 38. BP today 135/89. Pt reports colonoscopy was done about a year ago [facility] Medical History (Updated 04/28/23 @ 11:42 by Cody Mcelroy) Bipolar disorder with psychotic features Surgical History History of tracheostomy Family History Mother No problems noted. Father No problems noted. 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 and [employer] that helps with household tasks) Alcohol intake: former Patient Tobacco Use Status: Former Tobacco user Quit Date: pt reports stopped smoking one year ago Tobacco use type: Cigarette Cigarettes Per Day: 2 e-Cigarette/Vaping Use: Never Used Second Hand Smoke Exposure: No service: No Current occupational status: disabled Current occupational exposures/hazards: No Sexual orientation: Straight/Heterosexual Cognitive needs: Yes (Cane/walker) Hearing needs: No Vision needs: No Questionnaire PHQ-9 Over the last 2 weeks, how often have you been bothered by any of the following problems? 1. Little interest or pleasure in doing things: not at all 2. Feeling down, depressed, or hopeless: not at all 3. Trouble falling or staying asleep, or sleeping too much: not at all 4. Feeling tired or having little energy: not at all 5. Poor appetite or overeating: not at all 6. Feeling bad about yourself - or that you are a failure or have let yourself or your family down: not at all 7. Trouble concentrating on things, such as reading the newspaper or watching television: not at all 8. Moving or speaking so slowly that other people could have noticed. Or the opposite - being so fidgety or restless that you have been moving around a lot more than usual: not at all 9. Thoughts that you would be better off or of hurting yourself in some way: not at all Total score: 0 Depression Screening Interpretation: Negative Depression Screening Done: Yes 57183 - PHQ-9 Billing: Yes Source: Developed by Drs. Kevin Lobato, Shaina Kate, Charan Villa and colleagues, with an educational michael from [employer]. Thrive Questionnaire Date Thrive assessed: 04/28/23 I am a: Patient What is your living situation today?: I have a steady place to live Within the past 12 months, did the food you bought not last and you didn't have the money to get more?: Never true Within the past 12 months, did you worry whether your food would run out before you got money to buy more?: Never true Do you have trouble paying for medicines?: No Do you have trouble getting transportation to medical appointments?: No Do you have trouble paying your heating and electricity bill?: No Do you have trouble taking care of your child, family member or friend?: No Do you have trouble with day-to-day activities such as bathing, preparing meals, shopping, managing finances, etc.?: No Are you currently unemployed and looking for a job?: No Are you interested in more education?: No THRIVE Score: 0 AUDIT C Alcohol Use Questionnaire (AUDIT-C) 1. How often do you have a drink containing alcohol?: Never 3. How often do you have six or more drinks on one occasion?: Never Total Score: 0 SAAD-7 AMB Questionnaire SAAD-7 Date SAAD - 7 assessed: 04/28/23 Feeling nervous, anxious, or on edge: 0 = Not at all Not being able to stop or control worryin = Not at all Worrying too much about different things: 0 = Not at all Trouble relaxin = Not at all Being so restless that it is hard to sit still: 1 = Several days Becoming easily annoyed or irritable: 0 = Not at all Feeling afraid as if something awful might happen: 0 = Not at all Total SAAD-7 score (0-4 normal; 5-9 mild; 10-14 moderate; 15-21 severe): 1 Source: Developed by Drs. Kevin Lobato, Shaina Kate, Charan Villa and colleagues, with an educational michael from [employer]. SAAD-7 Assessment Billing SAAD-7 Assessment Tool: SAAD-7 Assessment 66839 Review of Systems Const Denies chills, Denies fatigue, Denies fever(s), Denies headache(s) and Denies weakness Eyes Denies change in vision ENT Denies dizziness, Denies headache(s), Denies hearing loss, Denies nasal congestion, Denies sinus pain, Denies sinus pressure and Denies sore throat Card Denies chest pain, Denies lightheadedness, Denies dyspnea and Denies other (palpitations) Resp Denies cough, Denies dyspnea and Denies wheezing GI Denies abdominal pain, Denies melena, Denies hematochezia, Denies change in bowel habits, Denies dyspepsia and Denies nausea Denies hematuria and Denies dysuria Musc Denies abnormal gait, Denies myalgias, Denies arthralgias, Denies numbness and Denies tingling Skin/Breast Denies rash, Denies unusual bruising and Denies wounds Neuro Denies abnormal gait, Denies dizziness, Denies headache(s), Denies memory loss, Denies numbness, Denies Sensory deficit (Neuro), Denies tingling and Denies weakness Psych Denies anxiety, Denies depression and Denies memory loss Endo Denies cold intolerance, Denies fatigue, Denies heat intolerance, Denies polydipsia and Denies polyuria Kwesi/Lymph Denies easy bleeding and Denies easy bruising Aller/Immun Denies wheezing Physical exam (Primary Care) Vital Signs: Last Vital Signs Pulse 72 04/28/23 11:02 BP 135/89 04/28/23 11:02 Pulse Ox 96 04/28/23 11:02 Oxygen Delivery Method Room Air 04/28/23 11:02 BMI result Body Mass Index 30.3 Tobacco/Smoking Status: Tobacco use Status Tobacco use date assessed 04/28/23 04/28/23 11:05 Patient Tobacco Use Status Former Tobacco user 04/28/23 11:03 Tobacco use type Cigarette 04/28/23 11:03 e-Cigarette/Vaping Use Never Used 04/28/23 11:03 PHQ-9: PHQ-9 Score PHQ-9: Total score 0 04/28/23 11:39 Depression Screening Interpretation: Negative Thrive Assessment: Date of Thrive Assessment Date Thrive assessed 04/28/23 04/28/23 11:12 Const General: no acute distress, well developed, alert and awake Nutritional Appearance: well nourished Orientation/consciousness: patient oriented x3 HENMT Head: Yes normocephalic and Yes atraumatic Ears: hearing grossly normal bilaterally and TM's normal bilaterally General nose exam: Normal external nose present and Normal nares present Mouth: Normal oral and palatal mucosa present and moist mucous membranes Teeth and gingiva: dentition normal Throat: Yes posterior oropharynx normal Eyes General: appearance normal, both eyes and all related structures Pupils: Equal, round and reactive pupils present and Pupil accommodation reflex normal EOM: EOMs intact bilaterally Neck Neck: Yes normal visual inspection, Yes no lymphadenopathy and Yes trachea midline Thyroid: Thyroid normal Carotids: no bruits Lymphatic: no lymphadenopathy noted Chest Chest palpation & inspection: normal inspection of the chest Resp Effort & Inspection: normal respiratory effort Auscultation: clear to auscultation bilaterally Cardio Rate: regular rate Rhythm: regular rhythm Heart sounds: S1 normal heart sound present, S2 normal heart sound present, no gallops, no murmurs and no rubs Bruits: no abdominal aortic bruits and no carotid bruits GI Palpation (GI): No Abdominal aortic bruit present, Soft to palpation, nontender, No hepatosplenomegaly present and No Rebound tenderness present Auscultation: normal bowel sounds General: Yes no CVA tenderness Back/Spine/Pelvis Back: no CVA tenderness Cervical Spine: cervical ROM normal and No Cervical spine tenderness Thoracic/Lumbar Spine: thoraco-lumbar ROM normal, No pain with thoraco-lumbar ROM, No thoracic spinal tenderness and No lumbar spinal tenderness Skin Lesions: no lesions Rashes: no rashes Trauma: no lacerations or abrasions Wounds: no wounds Nails: normal Neuro General: patient oriented x3 Cranial nerves: Yes Equal, round and reactive pupils present Cognition (Neuro): normal cognition Gait exam (Neuro): Normal gait present Motor exam (neuro): 5/5 motor strength present throughout Sensory Exam: No Sensory deficit (Neuro) Deep tendon reflexes (DTR's): Right patellar reflex intensity grade: 2+ and Left patellar reflex intensity grade: 2+ Extrem General: Yes normal to inspection and No edema Psych Appearance: grossly normal Affect: normal affect Attitude: cooperative Thought process: Normal thought process present Assessment and Plan Assessment & Plan (1) Essential hypertension: Code(s): I10 - Essential (primary) hypertension Plan: Blood?pressure?is?controlled.??Goal?is?less?than?140/90 (2) Multiple sclerosis: Code(s): G35 - Multiple sclerosis Plan: Stable.??Followed?by? Follow-up?with?Neurology?as?recommended (3) Hyperlipidemia: Code(s): E78.5 - Hyperlipidemia, unspecified Plan: Triglycerides?are?elevated Will?continue?to?follow.??Encouraged?exercise (4) Elevated ALT measurement: Code(s): R74.01 - Elevation of levels of liver transaminase levels Plan: Elevated?liver?enzyme?but?this?has?been?declining Will?recheck?at?a?subsequent?visit (5) Screening for prostate cancer: Code(s): Z12.5 - Encounter for screening for malignant neoplasm of prostate Plan: PSA?in?December?was?within?normal?range. Will?continue?annual?screen (6) Screening for colon cancer: Code(s): Z12.11 - Encounter for screening for malignant neoplasm of colon Plan: Will?discuss?colon?cancer?screening?next?year?at?age?44 (7) Bipolar disorder with psychotic features: Code(s): F31.9 - Bipolar disorder, unspecified Plan: PHQ-9?and?saad?7?show?stable?mood?and?patient?appears?to?be?doing?well. Continue?current?regimen?and?follow-up?with?psych?med?provider. (8) Adult general medical exam: Code(s): Z00.00 - Encounter for general adult medical examination without abnormal findings Plan: 43-year-old?male?presents?for?extended?exam Encouraged?healthy?diet?and?exercise Coding Level of Care Code Est Pt Level 4 (70194) Diagnoses Essential hypertension I10 Multiple sclerosis G35 Hyperlipidemia E78.5 Elevated ALT measurement R74.01 Screening for prostate cancer Z12.5 Screening for colon cancer Z12.11 Bipolar disorder with psychotic features F31.9 Adult general medical exam Z00.00 Additional Codes SAAD-7 Assessment Billing - SAAD-7 Assessment Tool: SAAD-7 Assessment [id number] ([id number])
== END 2023-04-28 11:52 | disposition home or self-care (01) ==
PROVIDERS: PCP Family Medicine; Visit Provider Family Medicine
DX: Z00.00 Encounter for general adult medical examination without abnormal findings (principal); G35 Multiple sclerosis; F31.9 Bipolar disorder, unspecified; I10 Essential (primary) hypertension; E78.5 Hyperlipidemia, unspecified; R74.01 Elevation of levels of liver transaminase levels; Z12.5 Encounter for screening for malignant neoplasm of prostate; Z12.11 Encounter for screening for malignant neoplasm of colon
CPT/HCPCS: 99396

== ENCOUNTER → 2023-08-25 11:38 | Outpatient (AMB) | payer OTHER, SELFPAY ==
[2023-08-25 11:47] VITALS: BP 132/74; PULSE 71; O2SAT 96; BMI 31.2
--- NOTE | 2023-08-25 11:47 | MHC.PC.OV ---
Vital Signs 08/25/23 11:47 Height 5 ft 9 in Weight 211 lb 2 oz BMI 31.2 BP 132/74 Blood Pressure Location Lt brachial Position Sitting Pulse 71 Pulse Source Pulse Oximeter Pulse Oximetry (%) 96 Oxygen Delivery Method Room Air Intake Visit Reasons: f/u chronic conditions Intake Note: Patient is here today tofollow up on chronic conditions and urinating often and has had vision changes in left eye he is concerned about diabetes, runs in the family. Patient needs refill on his medications, he states all of his meds. Allergies phenytoin [Dilantin] Allergy (Unknown, Verified 08/25/23 11:52) unknown From Dilantin Allergy (Unknown, Uncoded 08/25/23 11:52) UNKNOWN Medication List - Last Reconciled 08/25/23 by Konrad Mercado MD atorvastatin 40 mg PO BEDTIME 90 days benztropine 1 mg PO BID cholecalciferol (vitamin D3) (Vitamin D3) 25 mcg PO DAILY dalfampridine ER 10 mg PO BID diclofenac sodium 50 mg PO BID 30 days diphenhydramine HCl (Autumn-Dryl) 25 mg PO BEDTIME PRN 30 days divalproex ER 750 mg (3 x 250 mg) PO BID fingolimod 0.5 mg PO DAILY 30 days melatonin 10 mg PO BEDTIME PRN oxybutynin chloride ER 5 mg PO DAILY risperidone 2 mg PO DAILY risperidone 3 mg PO BEDTIME trazodone 100 mg PO DAILY Tobacco use date assessed: 04/28/23 Dental Screening Dental Screen Date: 08/25/23 Did you have a dental visit in the last 12 months?: Yes Did you have a dental problem in the last 6 months where you did not have access to dental care?: No Was dental information given to patient?: Patient has dentist HPI f/u chronic conditions HPI Details 43 y/o male presents to f/u chronic conditions. Mildly elevated fasting blood sugar - A1c had been okay. Pt reports vision changes L eye. Also has complaints of urinary frequency. A1c today 08/25/23 is 5.7%. [facility], LAT[facility] Medical History (Updated 08/25/23 @ 12:47 by Cody Mcelroy) Bipolar disorder with psychotic features Surgical History History of tracheostomy Family History Mother No problems noted. Father No problems noted. 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 and SCIENCE PROFESSOR that helps with household tasks) Alcohol intake: former Patient Tobacco Use Status: Former Tobacco user Tobacco use type: Cigarette Cigarettes Per Day: 2 e-Cigarette/Vaping Use: Never Used Second Hand Smoke Exposure: No service: No Current occupational status: disabled Current occupational exposures/hazards: No Sexual orientation: Straight/Heterosexual Cognitive needs: Yes (Cane/walker) Hearing needs: No Vision needs: No Questionnaire Thrive Questionnaire Date Thrive assessed: 04/28/23 SAAD-7 AMB Questionnaire SAAD-7 Date SAAD - 7 assessed: 04/28/23 Source: Developed by Drs. Kevin Lobato, Shaina Kate, Charan Villa and colleagues, with an educational michael from [email or web address]. Review of Systems Const Denies chills, Denies fatigue, Denies fever(s), Denies headache(s) and Denies weakness ENT Denies dizziness and Denies headache(s) Card Denies chest pain, Denies lightheadedness, Denies dyspnea and Denies other (Palpitations) Resp Denies cough, Denies dyspnea, Denies wheezing and Denies other ( shortness of breath) Musc Denies numbness and Denies tingling Neuro Denies dizziness, Denies headache(s), Denies numbness, Denies tingling, Denies paresthesias and Denies weakness Psych Denies anxiety and Denies depression Endo Denies fatigue Aller/Immun Denies wheezing Physical exam (Primary Care) BMI result Body Mass Index 31.2 Tobacco/Smoking Status: Tobacco use Status Tobacco use date assessed 04/28/23 08/25/23 11:54 Patient Tobacco Use Status Former Tobacco user 08/25/23 11:54 Tobacco use type Cigarette 08/25/23 11:54 e-Cigarette/Vaping Use Never Used 08/25/23 11:54 Thrive Assessment: Date of Thrive Assessment Date Thrive assessed 04/28/23 08/25/23 11:54 Const General: no acute distress and well developed Nutritional Appearance: well nourished Orientation/consciousness: patient oriented x3 [facility] Head: Yes normocephalic and Yes atraumatic Eyes General: appearance normal, both eyes and all related structures Pupils: Equal, round and reactive pupils present EOM: EOMs intact bilaterally Resp Effort & Inspection: normal respiratory effort Auscultation: clear to auscultation bilaterally Cardio Rate: regular rate Rhythm: regular rhythm Heart sounds: S1 normal heart sound present, S2 normal heart sound present, no gallops, no murmurs and no rubs Neuro General: patient oriented x3 and gait normal Cranial nerves: Yes Equal, round and reactive pupils present Psych Affect: normal affect Assessment and Plan Assessment & Plan (1) Essential hypertension: Code(s): I10 - Essential (primary) hypertension Plan: Blood?pressure?in?prehypertensive?range Encouraged?diet,?exercise?and?weight?loss Encouraged?diet?lower?in?salt/sodium (2) Vision changes: Code(s): H53.9 - Unspecified visual disturbance Plan: Left?eye?vision?changes. Referred?to?ophthalmology (3) Elevated fasting glucose: Code(s): R73.01 - Impaired fasting glucose (4) Urinary frequency: Code(s): R35.0 - Frequency of micturition Plan: Urine?dip?shows?concentrated?urine?but?otherwise?unremarkable. Patient?denies?dysuria Encouraged?increase?hydration (5) Pre-diabetes: Code(s): R73.03 - Prediabetes Plan: History?of?elevated?fasting?blood?sugars.??Last?A1c?in?December?was?5.6%.??Strong?family?history?of?diabetes. A1c?today:??5.7%;?pre?diabetes Encouraged?ongoing?work?at?diet?lower?in?sugars?and?starches.??Encouraged?exercise?and?weight?loss. Will?continue?to?monitor Orders: Orders Comprehensive [place]. Panel Fast Today Z00.00 - Encounter for general adult medical examination without abnormal findings Microalbumin, Random (w Creat) Today I10 - Essential (primary) hypertension TSH reflex Free T4 Today Z00.00 - Encounter for general adult medical examination without abnormal findings Complete Blood Count Auto Diff Today Z00.00 - Encounter for general adult medical examination without abnormal findings Lipid Panel Today Z00.00 - Encounter for general adult medical examination without abnormal findings UA and rflx microscopic Today Z00.00 - Encounter for general adult medical examination without abnormal findings Referrals Ophthalmology Referral G35 - Multiple sclerosis, H53.9 - Unspecified visual disturbance, H54.60 - Unqualified visual loss, one eye, unspecified Coding Level of Care Code Est Pt Level 4 (81825) Diagnoses Essential hypertension I10 Vision changes H53.9 Elevated fasting glucose R73.01 Urinary frequency R35.0 Pre-diabetes R73.03
== END ==
PROVIDERS: PCP Family Medicine; Visit Provider Family Medicine
DX: I10 Essential (primary) hypertension (principal); H53.9 Unspecified visual disturbance; R35.0 Frequency of micturition; R73.03 Prediabetes
CPT/HCPCS: 81003; 83036; 99214

== ENCOUNTER 2023-11-03 11:39 | Outpatient (AMB) | payer OTHER, SELFPAY ==
--- NOTE | 2023-11-03 11:50 | MHC.PC.OV ---
Vital Signs 11/03/23 11:57 Height 5 ft 9 in Weight 203 lb 6 oz BMI 30.0 BP 110/70 Blood Pressure Location Lt brachial Position Sitting Respiration 16 Pulse 62 Pulse Source Pulse Oximeter Temp 97.7 F Temp Source Tympanic Pulse Oximetry (%) 95 Oxygen Delivery Method Room Air Intake Visit Reasons: f/u pre-diabetes, HTN Intake Note: follow up for pre-diabetes and htn pt also states he feels like he pulled his hamstring has been having pain x3days Allergies phenytoin [Dilantin] Allergy (Unknown, Verified 11/03/23 11:54) unknown From Dilantin Allergy (Unknown, Uncoded 08/25/23 11:52) UNKNOWN Tobacco use date assessed: 04/28/23 Dental Screening Dental Screen Date: 08/25/23 HPI f/u pre-diabetes, HTN HPI Details 43 y/o male presents to review elevated liver enzymes, hypertension, pre-diabetes. Last A1c 08/25/23 5.7%. Blood pressure today 110/70. Pt reports hamstring pain x3 days. Pain has improved yesterday. He notes ongoing stiffness/difficulty ambulating. HPI Comments History of Present Illness Details Documentation assistance for Konrad Mercado MD, was provided by Cody Mcelroy, Multi Operation Forming Machine Setter on 11/03/2023 at 12:13 PM EST. I, Dr. Mercado, have read, observed, and verified documentation. [facility] Medical History (Updated 11/03/23 @ 12:13 by Cody Mcelroy) Bipolar disorder with psychotic features Surgical History History of tracheostomy Family History Mother No problems noted. Father No problems noted. 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 Kevin Lobato, Shaina Kate, Charan Villa and colleagues, with an educational michael from [employer]. Review of Systems Const Denies chills, Denies fatigue, Denies fever(s), Denies headache(s) and Denies weakness ENT Denies dizziness and Denies headache(s) Card Denies dyspnea Resp Denies cough, Denies dyspnea, Denies wheezing and Denies other (shortness of breath) Musc Denies numbness and Denies tingling Neuro Denies dizziness, Denies headache(s), Denies numbness, Denies tingling and Denies weakness Psych Denies anxiety and Denies depression Endo Denies fatigue Aller/Immun Denies wheezing Physical exam (Primary Care) Vital Signs: Last Vital Signs Temp 97.7 F 11/03/23 11:57 Pulse 62 11/03/23 11:57 Resp 16 11/03/23 11:57 BP 110/70 11/03/23 11:57 Pulse Ox 95 11/03/23 11:57 Oxygen Delivery Method Room Air 11/03/23 11:57 BMI result Body Mass Index 30.0 Tobacco/Smoking Status: Tobacco use Status Tobacco use date assessed 04/28/23 11/03/23 11:50 Patient Tobacco Use Status Former Tobacco user 11/03/23 11:50 Tobacco use type Cigarette 11/03/23 11:50 e-Cigarette/Vaping Use Never Used 11/03/23 11:50 Thrive Assessment: Date of Thrive Assessment Date Thrive assessed 04/28/23 11/03/23 11:50 Const General: well developed; No acute distress Nutritional Appearance: well nourished Orientation/consciousness: patient oriented x3 [facility] Head: Yes normocephalic and Yes atraumatic Eyes General: appearance normal, both eyes and all related structures Pupils: Equal, round and reactive pupils present EOM: EOMs intact bilaterally Resp Effort & Inspection: normal respiratory effort Auscultation: clear to auscultation bilaterally Cardio Rate: regular rate Rhythm: regular rhythm Heart sounds: S1 normal heart sound present, S2 normal heart sound present, no gallops, no murmurs and no rubs Neuro General: patient oriented x3 and gait normal Cranial nerves: Yes Equal, round and reactive pupils present Psych Affect: normal affect Assessment and Plan Assessment & Plan (1) Essential hypertension: Code(s): I10 - Essential (primary) hypertension Plan: History?of?hypertension. Blood?pressure?is?in?normal?range Continue?diet?control (2) Elevated liver enzymes: Code(s): R74.8 - Abnormal levels of other serum enzymes Plan: History?of?elevated?liver?enzymes.??Patient?has?not?gotten?his?labs?drawn?yet?but?will?do?so?today. (3) Strain of left hamstring: Code(s): S76.312A - Strain of muscle, fascia and tendon of the posterior muscle group at thigh level, left thigh, initial encounter Plan: This?is?already?improving He?can?use?ice/heat?and?gentle?stretching?as?tolerated Coding Level of Care Code Est Pt Level 3 (13851) Diagnoses Essential hypertension I10 Elevated liver enzymes R74.8 Strain of left hamstring S76.312A
[2023-11-03 11:57] VITALS: BP 110/70; PULSE 62; RESP 16; TEMP 36.5; O2SAT 95
== END 2023-11-03 12:18 | disposition home or self-care (01) ==
PROVIDERS: PCP Family Medicine; Visit Provider Family Medicine
DX: I10 Essential (primary) hypertension (principal); R74.8 Abnormal levels of other serum enzymes; S76.312A Strain of muscle, fascia and tendon of the posterior muscle group at thigh level, left thigh, initial encounter
CPT/HCPCS: 99213

== ENCOUNTER 2023-11-03 12:23 | Outpatient (REF) | payer OTHER, SELFPAY ==
[2023-11-03 14:30] LABS: MANUAL DIFF FLAG NO
[2023-11-03 14:34] LABS: Appearance Urine Turbid; Color Urine Yellow; Glucose Urine UA Negative (Negative); Leukocyte Esterase Urine Negative (Negative); Nitrite Urine Negative (Negative); PH 5.5 (5.0-9.0); Specific Gravity - Urine 1.025 (1.005-1.025); Urine Blood Negative (Negative); Urine Ketones Trace mg/dL (Negative); Urine Protein Negative (Neg-Trace)
[2023-11-03 14:47] LABS: Basophils Percent Auto 0.4 % (0-2); Eosinophils Absolute Auto 0.1 X10*3/uL (0.0-0.4); Eosinophils Percent Auto 1.3 % (0-4); Hematocrit 41.2 % (42.0-52.0); Imm Gran Abs Auto 0.03 X10*3/uL (0.00-0.03); Imm Gran Pct Auto 0.6 % (0.0-0.4); Lymphocytes Absolute Auto 0.9 X10*3/uL (1.2-4.9); Lymphocytes Percent Auto 19.5 % (20-40); Mean Corpuscular Hemoglobin 30.4 pg (27.0-33.0); Mean Corpuscular Volume 89.4 fL (80.0-98.0); Mean Platelet Volume 11.2 fL (9.4-12.4); Monocytes Absolute Auto 0.5 X10*3/uL (0.1-1.2); Monocytes Percent Auto 11.2 % (2-11); Neutrophils Absolute Auto 3.2 x10*3/uL (2.0-8.3); Platelet Count 241 X10*3/uL (160-400); Red Blood Count 4.61 X10*6/uL (4.60-5.80); Red Cell Distribution Width 14.4 % (11.0-16.0); White Blood Count 4.7 X10*3/uL (4.8-10.8)
[2023-11-03 15:09] LABS: Creatinine Urine 231.93 mg/dL; Microalbum/Creatinine Ratio Ur 4.3 ug/mg cr (<30)
[2023-11-03 15:21] LABS: Alanine Aminotransferase 38 U/L (0-40); Albumin Level 4.1 g/dL (3.5-5.0); Anion Gap 10 (12-20); Aspartate Amino Transferase 22 U/L (5-37); Bilirubin Total 0.4 mg/dL (0.0-1.0); Blood Urea Nitrogen 26 mg/dL (9-16); Calcium 9.5 mg/dL (8.4-10.2); Carbon Dioxide 28 mmol/L (22-29); Chloride 108 mmol/L (96-108); Cholesterol 149 mg/dL (<200); Estimated Glomerular Filt Rate > 60; Glucose Fasting 112 mg/dL (60-99); HDL Cholesterol 42 mg/dL (>40); LDL Cholesterol Calculated 86 mg/dL (<100); Sodium 142 mmol/L (135-145); Total Protein 6.4 g/dL (6.5-8.0); Triglycerides 105 mg/dL (<150)
[2023-11-03 15:22] LABS: Alkaline Phosphatase 81 U/L (39-117)
[2023-11-03 15:24] LABS: TSH reflex Free T4 1.37 uIU/mL (0.32-4.0)
== END 2023-11-03 12:24 | disposition home or self-care (01) ==
LOC: HO.WFDLDS 12:23
PROVIDERS: Visit Provider Family Medicine
DX: Z00.00 Encounter for general adult medical examination without abnormal findings (principal); I10 Essential (primary) hypertension
CPT/HCPCS: 36415; 80053; 80061; 81003; 82043; 82570; 84443; 85025

== ENCOUNTER 2024-02-09 11:37 | Outpatient (AMB) | payer OTHER, SELFPAY ==
--- NOTE | 2024-02-09 11:49 | MHC.PC.OV ---
Vital Signs 02/09/24 11:52 Height 5 ft 9 in Weight 204 lb 6 oz BMI 30.2 BP 123/87 Blood Pressure Location Lt brachial Position Sitting Respiration 16 Pulse 82 Pulse Source Pulse Oximeter Temp 97.2 F Temp Source Temporal Artery Scan Pulse Oximetry (%) 94 Oxygen Delivery Method Room Air Intake Visit Reasons: f/u pre-diabetes, hypertension, labs Intake Note: f/u for DM and HTN,labs Allergies phenytoin [Dilantin] Allergy (Unknown, Verified 02/09/24 11:51) unknown From Dilantin Allergy (Unknown, Uncoded 08/25/23 11:52) UNKNOWN Tobacco use date assessed: 04/28/23 Dental Screening Dental Screen Date: 08/25/23 HPI f/u pre-diabetes, hypertension, labs HPI Details 43 y/o male presents to f/u pre-diabetes, hypertension, labs. Last A1c 5.7%. Blood pressure today 123/87. He is not on any meds for blood pressure. Continues watching salt/sodium in his diet. Has been getting some exercise. [facility] Medical History (Updated 11/03/23 @ 12:13 by Cody Mcelroy) Bipolar disorder with psychotic features Surgical History History of tracheostomy Family History Mother No problems noted. Father No problems noted. 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 2. Feeling down, depressed, or hopeless: not at all 3. Trouble falling or staying asleep, or sleeping too much: not at all 4. Feeling tired or having little energy: not at all 5. Poor appetite or overeating: not at all 6. Feeling bad about yourself - or that you are a failure or have let yourself or your family down: not at all 7. Trouble concentrating on things, such as reading the newspaper or watching television: not at all 8. Moving or speaking so slowly that other people could have noticed. Or the opposite - being so fidgety or restless that you have been moving around a lot more than usual: not at all 9. Thoughts that you would be better off or of hurting yourself in some way: not at all Source: Developed by Drs. Kevin Lobato, Shaina Kate, Charan Villa and colleagues, with an educational michael from [employer]. Thrive Questionnaire Date Thrive assessed: 02/09/24 I am a: Patient What is your living situation today?: I have a steady place to live Within the past 12 months, did the food you bought not last and you didn't have the money to get more?: I choose not to answer this question Within the past 12 months, did you worry whether your food would run out before you got money to buy more?: Sometimes True Do you have trouble paying for medicines?: No Do you have trouble getting transportation to medical appointments?: No Do you have trouble paying your heating and electricity bill?: No Do you have trouble taking care of your child, family member or friend?: No Do you have trouble with day-to-day activities such as bathing, preparing meals, shopping, managing finances, etc.?: No Are you currently unemployed and looking for a job?: No Are you interested in more education?: No Please select the resources that you would like help with: None Currently or been in a relationship where the following occur: I choose not to answer THRIVE Score: 1 AUDIT C Alcohol Use Questionnaire (AUDIT-C) 1. How often do you have a drink containing alcohol?: 2-4 times a month Total Score: 2 SAAD-7 AMB Questionnaire SAAD-7 Date SAAD - 7 assessed: 04/28/23 Source: Developed by Drs. Kevin Lobato, Shaina Kate, Charan Villa and colleagues, with an educational michael from [employer]. Review of Systems Const Denies chills, Denies fatigue, Denies fever(s), Denies headache(s) and Denies weakness ENT Denies dizziness and Denies headache(s) Card Denies chest pain, Denies lightheadedness, Denies dyspnea and Denies other (Palpitations) Resp Denies cough, Denies dyspnea, Denies wheezing and Denies other ( shortness of breath) Musc Denies numbness and Denies tingling Neuro Denies dizziness, Denies headache(s), Denies numbness, Denies tingling, Denies paresthesias and Denies weakness Psych Denies anxiety and Denies depression Endo Denies fatigue Aller/Immun Denies wheezing Physical exam (Primary Care) Vital Signs: Last Vital Signs Temp 97.2 F 02/09/24 11:52 Pulse 82 02/09/24 11:52 Resp 16 02/09/24 11:52 BP 123/87 02/09/24 11:52 Pulse Ox 94 02/09/24 11:52 Oxygen Delivery Method Room Air 02/09/24 11:52 BMI result Body Mass Index 30.2 Tobacco/Smoking Status: Tobacco use Status Tobacco use date assessed 04/28/23 02/09/24 11:53 Patient Tobacco Use Status Former Tobacco user 02/09/24 11:53 Tobacco use type Cigarette 02/09/24 11:53 e-Cigarette/Vaping Use Never Used 02/09/24 11:53 Thrive Assessment: Date of Thrive Assessment Date Thrive assessed 02/09/24 02/09/24 11:53 Currently or been in a relationship where the following occur: I choose not to answer Const General: no acute distress and well developed Nutritional Appearance: well nourished Orientation/consciousness: patient oriented x3 [facility] Head: Yes normocephalic and Yes atraumatic Eyes General: appearance normal, both eyes and all related structures Pupils: Equal, round and reactive pupils present EOM: EOMs intact bilaterally Resp Effort & Inspection: normal respiratory effort Auscultation: clear to auscultation bilaterally Cardio Rate: regular rate Rhythm: regular rhythm Heart sounds: S1 normal heart sound present, S2 normal heart sound present, no gallops, no murmurs and no rubs Neuro General: patient oriented x3 and gait normal Cranial nerves: Yes Equal, round and reactive pupils present Psych Affect: normal affect Coding Level of Care Code Est Pt Level 3 (38204) Diagnoses Pre-diabetes R73.03 Essential hypertension I10 Assessment & Plan Assessment & Plan (1) Pre-diabetes: Code(s): R73.03 - Prediabetes Category: Medical Plan: History?of?pre?diabetes.??He?is?working?on?a?diet?low?in?sugars?and?starches A1c?5.6%?which?is?top?normal?range Continue?lifestyle?changes (2) Essential hypertension: Code(s): I10 - Essential (primary) hypertension Category: Medical Plan: History?of?hypertension?though?blood?pressures?have?been?well?controlled?and?he?is?not?on?any?medication. Blood?pressure?remains?controlled?and?at?goal?less?than?140/90 Continue?lifestyle?changes
[2024-02-09 11:52] VITALS: BP 123/87; PULSE 82; RESP 16; TEMP 36.2; O2SAT 94; BMI 30.2
== END 2024-02-09 12:20 | disposition home or self-care (01) ==
PROVIDERS: PCP Family Medicine; Visit Provider Family Medicine
DX: R73.03 Prediabetes (principal); I10 Essential (primary) hypertension

== ENCOUNTER → 2024-02-09 11:37 | Outpatient (BNVA) | payer OTHER, SELFPAY | PROVIDERS: PCP Family Medicine; Visit Provider Family Medicine | DX: R73.03 Prediabetes (principal); I10 Essential (primary) hypertension | CPT/HCPCS: 99212 ==

== ENCOUNTER 2024-06-22 16:17 | Outpatient (AMB) | payer OTHER, SELFPAY ==
--- NOTE | 2024-06-22 17:00 | MHC.PC.OV ---
Vital Signs 06/22/24 17:03 Height 5 ft 9 in Weight 206 lb 4 oz BMI 30.5 BP 120/70 Blood Pressure Location Rt brachial Position Sitting Respiration 16 Pulse 69 Pulse Source Pulse Oximeter Temp 98.7 F Temp Source Oral Pulse Oximetry (%) 94 Oxygen Delivery Method Room Air Intake Visit Reasons: f/u pre-diabetes Intake Note: patient is scheduled for pre-dm follow up Changer Fixer Required: No Allergies phenytoin [Dilantin] Allergy (Unknown, Verified 06/22/24 17:02) unknown From Dilantin Allergy (Unknown, Uncoded 08/25/23 11:52) UNKNOWN Tobacco use date assessed: 04/28/23 Dental Screening Dental Screen Date: 08/25/23 HPI f/u pre-diabetes HPI Details 44 y/o male presents to f/u pre-diabetes. Had also been following him for history of hypertension but his blood pressures have been controlled and he is on no medication for this. Prior A1c 5.7%. A1c today 06/22/24 is 5.7%. Blood pressure today 120/70, 69p. [facility] Medical History (Updated 02/24/24 @ 07:50 by Konrad Mercado MD) Bipolar disorder with psychotic features Surgical History History of tracheostomy Family History Mother No problems noted. Father No problems noted. 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 household tasks) Alcohol intake: former Patient Tobacco Use Status: Former Tobacco user Tobacco use type: Cigarette Cigarettes Per Day: 2 e-Cigarette/Vaping Use: Never Used Second Hand Smoke Exposure: No service: No Current occupational status: disabled Current occupational exposures/hazards: No Sexual orientation: Straight/Heterosexual Cognitive needs: Yes (Cane/walker) Hearing needs: No Vision needs: No Questionnaire Thrive Questionnaire Date Thrive assessed: 02/09/24 I am a: Patient What is your living situation today?: I have a steady place to live Within the past 12 months, did the food you bought not last and you didn't have the money to get more?: I choose not to answer this question Within the past 12 months, did you worry whether your food would run out before you got money to buy more?: Sometimes True Do you have trouble paying for medicines?: No Do you have trouble getting transportation to medical appointments?: No Do you have trouble paying your heating and electricity bill?: No Do you have trouble taking care of your child, family member or friend?: No Do you have trouble with day-to-day activities such as bathing, preparing meals, shopping, managing finances, etc.?: No Are you currently unemployed and looking for a job?: No Are you interested in more education?: No Please select the resources that you would like help with: None Currently or been in a relationship where the following occur: I choose not to answer THRIVE Score: 1 SAAD-7 AMB Questionnaire SAAD-7 Date SAAD - 7 assessed: 04/28/23 Source: Developed by Drs. Kevin Lobato, Shaina Kate, Charan Villa and colleagues, with an educational michael from [employer]. Review of Systems Const Denies chills, Denies fatigue, Denies fever(s), Denies headache(s) and Denies weakness ENT Denies dizziness and Denies headache(s) Card Denies dyspnea Resp Denies cough, Denies dyspnea, Denies wheezing and Denies other (shortness of breath) Musc Denies numbness and Denies tingling Neuro Denies dizziness, Denies headache(s), Denies numbness, Denies tingling and Denies weakness Psych Denies anxiety and Denies depression Endo Denies fatigue Aller/Immun Denies wheezing Physical exam (Primary Care) Vital Signs: Last Vital Signs Temp 98.7 F 06/22/24 17:03 Pulse 69 06/22/24 17:03 Resp 16 06/22/24 17:03 BP 120/70 06/22/24 17:03 Pulse Ox 94 06/22/24 17:03 Oxygen Delivery Method Room Air 06/22/24 17:03 BMI result Body Mass Index 30.5 Tobacco/Smoking Status: Tobacco use Status Tobacco use date assessed 04/28/23 06/22/24 17:00 Patient Tobacco Use Status Former Tobacco user 06/22/24 17:00 Tobacco use type Cigarette 06/22/24 17:00 e-Cigarette/Vaping Use Never Used 06/22/24 17:00 Thrive Assessment: Date of Thrive Assessment Date Thrive assessed 02/09/24 06/22/24 17:00 Currently or been in a relationship where the following occur: I choose not to answer Const General: well developed; No acute distress Nutritional Appearance: well nourished Orientation/consciousness: patient oriented x3 HENMT Head: Yes normocephalic and Yes atraumatic Eyes General: appearance normal, both eyes and all related structures Pupils: Equal, round and reactive pupils present EOM: EOMs intact bilaterally Resp Effort & Inspection: normal respiratory effort Auscultation: clear to auscultation bilaterally Cardio Rate: regular rate Rhythm: regular rhythm Heart sounds: S1 normal heart sound present, S2 normal heart sound present, no gallops, no murmurs and no rubs Neuro General: patient oriented x3 and gait normal Cranial nerves: Yes Equal, round and reactive pupils present Psych Affect: normal affect Results AMB Hemoglobin A1c AMB Hemoglobin A1c 5.7 % Last Edit by DELICIA Kohler on 06/22/24 17:30 Results Reviewed Results Reviewed: Laboratory Last Values Hgb A1c (Clinic) 5.7 % (4.0-6.0) 06/22/24 17:23 Coding Level of Care Code Est Pt Level 3 (44484) Diagnoses Pre-diabetes R73.03 Assessment & Plan Assessment & Plan (1) Pre-diabetes: Code(s): R73.03 - Prediabetes Category: Medical Plan: A1c?5.7%. Continue?to?work?at?a?diet?low?in?sugars?and?starches Continue?exercise?and?weight?loss Plan Blood?pressure?is?controlled. Orders: Orders AMB Hemoglobin A1c Today R73.03 - Prediabetes
[2024-06-22 17:03] VITALS: BP 120/70; PULSE 69; RESP 16; TEMP 37.1; O2SAT 94; BMI 30.5
--- OUTSIDE RECORDS SUMMARY | 2024-06-22 18:04 | XMS_ITS | Encounter Summary ---
Author Organization [employer] Address [address] [place] [address] Care Team Providers Care Supervisor Steffen House Name Role Phone Unavailable Primary Care Provider Unavailabl e Encounter Details Date Type Department Care Team (Late st Contact Info) Description 12/26/2022 Abstract [facility] [address] [facility] [place] [id number] David Magallon DDS [address] [place] [address] Social History Tobacco Use Types Packs/Day Years Used Date Smoking Tobacco: Former Cigarettes Q uit: 04/20/2014 Passive Smoke Exposure: Never Smokeless Tobacco: Never Alcohol Use Standard Drinks/Week Comments Not Currently 12 (1 standard drink = 0.6 oz pu re alcohol) Sex and Gender Information Value Date Recorded Sex Assigned at Male 01/20/2022 10:21 AM EDT Legal Sex Male 10:21 AM EDT Gender Identity Male 01/20/2022 10:21 AM EDT Sexual Orientation Straight 01/20/2022 10 :21 AM EDT documented as of this encounter Plan of Treatment Not on file documented as of this encounter Visit Diagnoses Not on filedocumented in this encounter
--- OUTSIDE RECORDS SUMMARY | 2024-06-22 18:04 | XMS_ITS | Clinical Summary ---
Author Organization [employer] Address [address] [facility] [address] [place] [address] Care Team Providers Care Architecture Department Chair Name Role Phone Unavailable Primary Care Provider Unavailabl e Allergies Active Allergy Reactions Criticality Noted Date Comments Phenytoin Rash Low 05/01/2022 Medications traZODone (Desyrel) 50 MG tablet Take 1 tablet by mouth every 8 (eight) hours. Active chlorhexidine (Periogard) 0.12 % solution Place 15 mL into mouth between cheek and gum every 12 (twelve) hours. 11/18/2021 Active Dalfampridine ER (Ampyra) 10 MG tablet sustained-relea se 12 hour Take 1 tablet by mouth every 12 (twelve) hours. Active divalproex (Depakote ER) 500 MG 24 hr tablet Take 1 tablet by mouth at bed time. Active fingolimod (Gilenya) 0.5 MG capsule Take 1 capsule by mouth at bed time. Active QUEtiapine (SEROquel) 100 MG tablet Take 1 tablet by mouth every 12 (twelve) hours. Active atorvastatin (Lipitor) 40 MG tablet Take 40 mg by mouth at bedtime. 11/13/2023 Active Vitamin D-[address] 25 MCG (1000 UT) tablet 11/19/2023 Active diclofenac (Voltaren) 50 MG EC tablet TAKE 1 TABLET BY MOUTH two (2) times a day 11/13/2023 Active Banophen 25 MG tablet 11/19/2023 Active oxybutynin XL (Ditropan-XL) 5 MG 24 hr tablet Take 5 mg by mouth Once per day. 11/13/2023 Active risperiDONE (RisperDAL) 3 MG tablet Take 3 mg by mouth at bedtime. 11/13/2023 Active Active Problems No known active problems Encounters Date Type Department Care Team Description 04/27/2024 9:00 AM EST Office Visit [facility] [address] [place] [address] Milady Joe, YVONNE 04/08/2024 Orders Only [facility] [address] [place] [address] Bill Delgado, DMD 04/08/2024 Telephone [facility] [address] [place] [address] Milady Joe DDS tx clarification 04/07/2024 10:00 AM EST Office Visit [facility] [address] [place] [address] Milady Joe DDS from Last 3 Months Social History Tobacco Use Types Packs/Day Years Used Date Smoking Tobacco: Former Cigarettes Q uit: 04/20/2014 Passive Smoke Exposure: Never Smokeless Tobacco: Never Tobacco Cessation:Counseling Given: Not Answered Alcohol Use Standard Drinks/Week Comments Not Currently 12 (1 standard drink = 0.6 oz pu re alcohol) Sex and Gender Information Value Date Recorded Sex Assigned at Male 01/20/2022 10:21 AM EDT Legal Sex Male 10:21 AM EDT Gender Identity Male 01/20/2022 10:21 AM EDT Sexual Orientation Straight 01/20/2022 10 :21 AM EDT Last Filed Vital Signs Vital Sign Reading Time Taken Comments Blood Pressure 128/86 04/27/2024 9:22 AM EST Pulse 69 04/27/2024 9:22 AM EST Temperature - - Respiratory Rate - - Oxygen Saturation - - Inhaled Oxygen Concentration - - Weight - - Height - - Body Mass Index - - Plan of Treatment Health Maintenance Due Date Last Done Comments CT Colonography 1979 Colonoscopy 1979 Colorectal Cancer Screening 1979 Depression Screening 1979 FIT DNA/Cologuard 1979 FIT 1979 FOBT 1979 HIV Screening 1979 Lipid Panel 1979 SDOH Screening 1979 Sigmoidoscopy 1979 Alcohol/Substance Use Screening 1991 Family Planning (PISQ) 1994 Hepatitis C Screening 1997 Hepatitis B Vaccines (1 of 3 - 19+ 3-dose series) 1998 COVID-19 Vaccine (3 - season) 2023 05/22/2021, 06/19/2020 Influenza Vaccine (#1) 2023 , 04/19/2019, 12/17/2017, Additional history exists Tobacco Screening 04/07/2025 04/07/2024 Zoster Vaccines (1 of 2) 2029 DTaP/Tdap/Td Vaccines (2 - Td or Tdap) 04/19/2029 04/19/2019 RSV Patients and Patients Aged 60 years or older (1 - 1-dose 75+ series) 2054 Dental Oral Exam Discontinued 12/14/2023 Dental Prophylaxis Discontinued 12/14/2023, 0 07/15/2022, 05/01/2022 Dental X-Ray: Bitewings Discontinued 12/14/2023 Dental X-Ray: Full Mouth Discontinued HIB Vaccines Aged Out No longer eligi ble based on patient's age to complete this topic HPV Vaccines Aged Out No longer eligi ble based on patient's age to complete this topic Hepatitis A Vaccines Aged Out No long er eligible based on patient's age to complete this topic IPV Vaccines Aged Out No longer eligi ble based on patient's age to complete this topic Meningococcal Vaccine Aged Out No kahlil xavier eligible based on patient's age to complete this topic Pneumococcal Vaccine: Pediatrics (0 to 5 Years) and At-Risk Patients (6 to 49) Years) Aged Out No longer eligible based on patient's age to complete this topic RSV under 20 months Aged Out No longe r eligible based on patient's age to complete this topic Rotavirus Vaccines Aged Out No longer eligible based on patient's age to complete this topic Procedures Procedure Name Priority Date/Time Associated Diagnosis Comments 4 EXTRACTION, ERUPTED TOOTH OR EXPOSED ROOT (ELEVATION/FORCEPS REMOVAL) Routine 04/27/2024 9:00 AM EST NO CHARGE PROCEDURE Routine 04/07/2024 1 0:00 AM EST Full PROPHYLAXIS - ADULT Routine 024 1:00 PM EDT BITEWINGS - 4 RADIOGRAPHIC IMAGES Routine 12/14/2023 1:00 PM EDT PERIODIC ORAL EVALUATION - ESTABLISHED PATIENT Routine 12/14/2023 1:00 PM EDT from Last 3 Months or Most Recently Relevant to Health Maintenance Insurance [facility]
--- OUTSIDE RECORDS SUMMARY | 2024-06-22 18:04 | XMS_ITS | Encounter Summary ---
Author Organization [employer] [facility] Address [address] [facility] [address] [place] [address] Care Team Providers Care Traffic Lieutenant Name Role Phone Unavailable Primary Care Provider Unavailabl e Encounter Details Date Type Department Care Team (Latest Contact Info) Description 08/16/2021 Abstract [facility] Dental, Provider, DDS Social History Tobacco Use Types Packs/Day Years Used Date Smoking Tobacco: Never Assessed Sex and Gender Information Value Date Recorded [...]
--- OUTSIDE RECORDS SUMMARY | 2024-06-22 18:04 | XMS_ITS | Encounter Summary ---
Author Organization [employer] Address [address] [facility] [address] [facility] [address] [place] [address] Care Team Providers Care Track Walker Name Role Phone Unavailable Primary Care Provider Unavailabl e Reason for Visit * Reason Onset Date Comments tx clarification 04/08/2024 Encounter Details Date Type Department Care Team (Late st Contact Info) Description 04/08/2024 Telephone [facility] [address] [place] [address] Milady Joe, DDS [address] [place], [place] [id number] tx clarification Social History Tobacco Use Types Packs/Day Years [...] AM EDT documented as of this encounter Miscellaneous Notes * Telephone Encounter - Carol Chisholm - 04/08/2024 9:34 AM EST Patient was here yesterday 04/07 and they would like to have clarification if they have this extraction done, would they be able to have a partial for that missing tooth. He would like to hear back from office after 12 noon as he will be unavailable before then documented in this encounter Plan of Treatment Not on file documented as of this encounter Visit Diagnoses Not on filedocumented in this encounter
== END 2024-06-22 17:39 | disposition home or self-care (01) ==
LOC: HO.HMCFM 16:18
PROVIDERS: PCP Family Medicine; Visit Provider Family Medicine
DX: R73.03 Prediabetes (principal)

== ENCOUNTER → 2024-06-22 16:17 | Outpatient (BNVA) | payer OTHER, SELFPAY | PROVIDERS: PCP Family Medicine; Visit Provider Family Medicine | DX: R73.03 Prediabetes (principal) | CPT/HCPCS: 83036; 99212 ==

== ENCOUNTER 2024-08-09 13:15 | Outpatient (AMB) | payer OTHER, SELFPAY ==
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
[2024-08-09 13:52] VITALS: BP 110/70; PULSE 64; RESP 14; TEMP 36.6; O2SAT 97; BMI 30.1
--- OUTSIDE RECORDS SUMMARY | 2024-08-09 14:24 | XMS_ITS | Clinical Summary ---
Author Organization [employer] Address [address] [facility] [address] [place] [address] Care Team Providers Care Air Traffic Control Specialist Center Name Role Phone Unavailable Primary Care Provider [...] Active Active Problems No known active problems Social History Tobacco Use Types Packs/Day Years [...] Panel 1979 SDOH Screening 1979 Sigmoidoscopy 1979 Disability Screening 1979 Alcohol/Substance Use Screening 1991 Family Planning [...] patient's age to complete this topic Meningococcal B Vaccine Aged Out No l onger eligible based on patient's age to complete [...] Procedure Name Priority Date/Time Associated Diagnosis Comments Full PROPHYLAXIS - ADULT Routine 024 1:00 PM EDT BITEWINGS - 4 RADIOGRAPHIC IMAGES Routine 12/14/2023 1:00 PM EDT PERIODIC ORAL EVALUATION - ESTABLISHED PATIENT Routine 12/14/2023 1:00 PM EDT from Last 3 Months or Most Recently Relevant to Health Maintenance Insurance [facility]
--- OUTSIDE RECORDS SUMMARY | 2024-08-09 14:24 | XMS_ITS | Encounter Summary ---
Author Organization [employer] Address [address] [place] [address] Care Team Providers Care Sporting Goods Sales Associate Name Role Phone Unavailable Primary Care Provider Unavailabl e Reason for Visit * Reason Onset Date Comments tx clarification 04/08/2024 Encounter Details Date Type Department Care Team (Late st Contact Info) Description 04/08/2024 Telephone C [facility] [address] [place], [place] [id number] Milady Joe, DDS [address] [place], [place] [phone] tx clarification Social History Tobacco Use Types [...]
--- OUTSIDE RECORDS SUMMARY | 2024-08-09 14:24 | XMS_ITS | Encounter Summary ---
Author Organization [employer] Address [address] [place] [address] Care Team Providers Care Tank Setter Helper Name Role Phone Unavailable Primary Care Provider Unavailabl e Encounter Details Date Type Department Care Team (Late st Contact Info) Description 12/26/[address] [facility] ADULT DENTAL [address] [place] [id number] David Magallon DDS [address] [place], [place] [phone] Social History Tobacco Use Types Packs/Day Years [...]
--- OUTSIDE RECORDS SUMMARY | 2024-08-09 14:24 | XMS_ITS | Encounter Summary ---
Author Organization [facility] License [facility] Address [address] [place] [address] Care Team Providers Care Sort Line Name Role Phone Unavailable Primary Care Provider Unavailabl e Encounter Details Date Type Department Care Team (Latest Contact Info) Description 08/16/2021 Abstract [facility] Dental, Provider, DDS Social History Tobacco [...]
== END 2024-08-09 14:25 | disposition home or self-care (01) ==
LOC: HO.HMCFM 13:16
PROVIDERS: PCP Family Medicine; Visit Provider Family Medicine
DX: M79.672 Pain in left foot (principal); B07.9 Viral wart, unspecified; L60.8 Other nail disorders

== ENCOUNTER → 2024-08-09 13:15 | Outpatient (BNVA) | payer OTHER, SELFPAY | PROVIDERS: PCP Family Medicine; Visit Provider Family Medicine | DX: M79.672 Pain in left foot (principal); B07.9 Viral wart, unspecified; L60.8 Other nail disorders | CPT/HCPCS: 96127; 99212 ==

== ENCOUNTER 2024-08-25 14:10 | Emergency (ER) | payer OTHER, SELFPAY ==
[2024-08-25 14:14] VITALS: BP 142/87; PULSE 79; RESP 18; TEMP 36.7; O2SAT 96; BMI 30.3
--- NOTE | 2024-08-25 14:14 | ED_ITS ---
HPI - Skin/Abscess/Foreign Bdy General Chief complaint: Wound/Laceration Stated complaint: Wart L foot Time Seen by Provider: 08/25/24 14:18 Source: patient, RN notes reviewed and old records reviewed Mode of arrival: ambulatory History of Present Illness ED Provider: Debbie Mayer PA-C HPI narrative: 44-year-old male with a past medical history of bipolar disorder with psychotic features complaining of painful wart to left foot x 1 month. Admits was seen by PCP recently and referred to Podiatry however can not get in until November 09. Denies using any topical medications or OTC medications. Reports increasing pain. Denies fever, erythema, drainage from area, injury Related Data Home Medications ?Medication ?Instructions ?Recorded ?Confirmed dalfampridine 10 mg 10 mg PO BID 01/09/23 08/25/23 tablet,extended release,12 hr Previous Rx's ?Medication ?Instructions ?Recorded melatonin 10 mg capsule 10 mg PO BEDTIME PRN sleep #20 caps 01/09/23 benztropine 1 mg tablet 1 mg PO BID #60 tabs 01/19/23 risperidone 2 mg tablet 2 mg PO DAILY #30 tabs 01/19/23 divalproex 250 mg tablet,extended 750 mg (3 x 250 mg) PO BID #180 10/11/23 release 24 hr tabs risperidone 3 mg tablet 3 mg PO BEDTIME #30 tabs 10/11/23 trazodone 100 mg tablet 100 mg PO DAILY #30 tabs 10/11/23 oxybutynin chloride 5 mg 5 mg PO DAILY 30 days #30 tabs 05/24/24 tablet,extended release 24 hr diphenhydramine HCl 25 mg tablet 25 mg PO BEDTIME PRN allergies 30 06/01/24 (Autumn-Dryl) days #30 tabs fingolimod 0.5 mg capsule 0.5 mg PO DAILY 30 days #30 caps 06/20/24 cholecalciferol (vitamin D3) 25 25 mcg PO DAILY #30 tabs 06/22/24 mcg (1,000 unit) tablet (Vitamin D3) diclofenac sodium 50 mg 50 mg PO BID 30 days #60 tabs 06/22/24 tablet,delayed release atorvastatin 40 mg tablet 40 mg PO BEDTIME 90 days #90 tabs 06/27/24 salicylic acid 40 % topical patch 1 appl topical Q48H #20 ea 08/25/24 Allergies Allergy/AdvReac Type Severity Reaction Status Date / Time phenytoin [Dilantin] Allergy Unknown unknown Verified 08/25/24 14:15 From Dilantin Allergy Unknown UNKNOWN Uncoded 08/25/24 14:15 Review of Systems Review of Systems: Yes all other systems are reviewed and are negative Constitutional: Constitutional: Reports as per [facility] Past Medical History Attestation statement: The following information was validated with the patient. Source: old records reviewed Medical History Bipolar disorder with psychotic features Surgical History History of tracheostomy Family History Family History Mother No problems noted. Father No problems noted. Other Mental health disorder Social History Social History Household Members: None Housing: Apartment Do you presently have visiting nurse or other home services: Yes (Pt reports visiting nurse and SCIENTIST PROPAGATOR that helps with household tasks) Alcohol intake: former Patient Tobacco Use Status: Former Tobacco user Tobacco use type: Cigarette Cigarettes Per Day: 2 e-Cigarette/Vaping Use: Never Used Second Hand Smoke Exposure: No Do you have a plan to hurt others: No Plan service: No Current occupational status: disabled Current occupational exposures/hazards: No Sexual orientation: Straight/Heterosexual Cognitive needs: Yes (Cane/walker) Hearing needs: No Vision needs: No Physical Exam Vital Signs: Vital Signs: Last Vital Signs Temp 98.1 F 08/25/24 14:14 Pulse 79 08/25/24 14:14 Resp 18 08/25/24 14:14 BP 142/87 H 08/25/24 14:14 Pulse Ox 96 08/25/24 14:14 BMI result Body Mass Index 30.3 Const: General: cooperative, healthy appearing and no acute distress Orientation/consciousness: patient oriented x3 Limitations: no limitations HEENT: Head: Yes normal to inspection and Yes atraumatic Ears: hearing grossly normal bilaterally General nose exam: Normal external nose present Face and sinus: Yes normal facial exam Eyes: General: appearance normal, both eyes and all related structures EOM: EOMs intact bilaterally Neck: Neck: Yes normal visual inspection and Yes no meningeal signs Resp: Effort & Inspection: normal respiratory effort and no respiratory distress Cardio: Rate: regular rate Skin: Other: plantar wart noted to medial aspect of left 4th toe. No surrounding erythema. No fluctuance/induration Rashes: no rashes Wounds: no wounds Neuro: General: patient oriented x3, tone normal and no meningeal signs Cranial nerves: Yes CN's II-XII intact bilaterally Gait exam (Neuro): Normal gait present Extrem: General: Yes normal to inspection Medical Decision Making Medical Decision Making MDM Narrative: 44-year-old male with a past medical history of bipolar disorder with psychotic features complaining of painful wart to left foot x 1 month. on exam vital signs stable, NAD, nontoxic appearing physical exam as noted above consistent with plantar wart. No evidence of acute cellulitis or abscess Plan: Topical salicylic acid, podiatry/dermatology follow up Please refer to course for remaining clinical decision making, interpretation of labs/imaging results, and discussions with consultants and/or family members. Results discussed with patient including worrisome signs and symptoms and strict return precautions, and when to return to the emergency department. They verbalized understanding and feel safe for discharge at this time. Differential Diagnosis Differential Diagnoses: The differential diagnosis associated with the presentation includes As above Independent Historian Clinical information obtained from an independent historian. History obtained from or confirmed by: Other External Record Review External record reviewed: Inpatient record, Office record, Outpatient record, Prior outpatient labs, Prior outpatient radiology, Primary care record and Outside ED record Tests considered The following testing was considered but not selected: As above Prescription Management I considered prescription management with: Pain Medication and Antibiotic Chronic Conditions Patient?s care impacted by: Other Social Determinants Patient?s care significantly limited by Social Determinants of Health including: Other Social Determinant of Health Discharge Plan Discharge Clinical Impression: Plantar wart Patient Disposition: Home, Self-Care Instructions: Plantar Wart (ED) Additional Instructions: please apply topical salicylic acid as prescribed You need to follow up with Dermatology/ Podiatry If area begins look infected, is red, there is pus drainage or you have fever return to the ED Prescriptions: New salicylic acid 40 % adhesive patch,medicated 1 appl topical Q48H Qty: 20 0RF No Action risperidone 3 mg tablet 3 mg PO BEDTIME Qty: 30 2RF trazodone 100 mg tablet 100 mg PO DAILY Qty: 30 2RF divalproex 250 mg tablet extended release 24 hr 750 mg PO BID Qty: 180 2RF oxybutynin chloride 5 mg tablet extended release 24hr 5 mg PO DAILY 30 Days Qty: 30 3RF diphenhydramine HCl [Autumn-Dryl] 25 mg tablet 25 mg PO BEDTIME PRN (Reason: allergies) 30 Days Qty: 30 11RF fingolimod 0.5 mg capsule 0.5 mg PO DAILY 30 Days Qty: 30 1RF diclofenac sodium 50 mg tablet,delayed release (DR/EC) 50 mg PO BID 30 Days Qty: 60 1RF cholecalciferol (vitamin D3) [Vitamin D3] 25 mcg (1,000 unit) tablet 25 mcg PO DAILY Qty: 30 1RF atorvastatin 40 mg tablet 40 mg PO BEDTIME 90 Days Qty: 90 1RF melatonin 10 mg capsule 10 mg PO BEDTIME PRN (Reason: sleep) Qty: 20 0RF dalfampridine 10 mg tablet extended release 12 hr 10 mg PO BID risperidone 2 mg Tablet 2 mg PO DAILY Qty: 30 0RF benztropine 1 mg Tablet 1 mg PO BID Qty: 60 0RF Referrals: [facility] [Outside] [facility] [Outside] Konrad Mercado MD [Primary Care Provider] - Zac Rushing MD [Physician] - Jose Rushing DPM [Physician] - Print Language: Puerto Rican
[2024-08-25 14:28] VITALS: BP 142/87; PULSE 79; RESP 18; TEMP 36.7; O2SAT 96
--- OUTSIDE RECORDS SUMMARY | 2024-08-25 17:07 | XMS_ITS | Encounter Summary ---
Author Organization [employer] Address [address] [place] [address] Care Team Providers Care Ssis Ssrs Developer Name Role Phone Unavailable Primary Care Provider Unavailabl e Encounter Details Date Type Department Care Team (Late st Contact Info) Description 12/26/2022 Abstract [facility] CH[facility] ADULT DENTAL [address] [place] [phone] David Magallon DDS [address] [place], [place] [phone] Social History Tobacco Use Types Packs/Day Years [...]
== END 2024-08-25 14:29 | disposition home or self-care (01) ==
LOC: HO.ED 14:28
PROVIDERS: Emergency Provider Emergency Medicine; PCP Family Medicine
DX: B07.0 Plantar wart (principal); Z79.899 Other long term (current) drug therapy; Z87.891 Personal history of nicotine dependence
CPT/HCPCS: 99282; 99283

== ENCOUNTER 2024-09-21 14:23 | Outpatient (AMB) | payer OTHER, SELFPAY ==
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
[2024-09-21 14:38] VITALS: BP 108/72; PULSE 67; RESP 18; TEMP 36.6; O2SAT 95; BMI 30.4
--- OUTSIDE RECORDS SUMMARY | 2024-09-21 14:55 | XMS_ITS | Encounter Summary ---
Author Organization [employer] Address [address] [place] [address] Care Team Providers Care Director Financial Services Name Role Phone Unavailable Primary Care Provider Unavailabl e Encounter Details Date Type Department Care Team (Late st Contact Info) Description 12/26/2022 Abstract [facility] CHC ADULT DENTAL [address] [place] [phone] David Magallon DDS [address] [place], [place] [phone] Social History Tobacco Use Types Packs/Day Years [...]
== END 2024-09-21 15:18 | disposition home or self-care (01) ==
LOC: HO.HMCFM 14:24
PROVIDERS: PCP Family Medicine; Visit Provider Family Medicine
DX: B07.0 Plantar wart (principal); R41.3 Other amnesia; G35 Multiple sclerosis

== ENCOUNTER → 2024-09-21 14:23 | Outpatient (BNVA) | payer OTHER, SELFPAY | PROVIDERS: PCP Family Medicine; Visit Provider Family Medicine | DX: R42 Dizziness and giddiness (principal); B07.0 Plantar wart; R41.3 Other amnesia; G35 Multiple sclerosis | CPT/HCPCS: 99212 ==

== ENCOUNTER 2024-09-28 11:53 | Outpatient (REF) | payer OTHER, SELFPAY ==
--- OUTSIDE RECORDS SUMMARY | 2024-09-28 13:03 | XMS_ITS | Encounter Summary ---
Author Organization [employer] Address [address] [place] [address] Care Team Providers Care Deck Builder Name Role Phone Unavailable Primary Care Provider Unavailabl e Encounter Details Date Type Department Care Team (Late st Contact Info) Description 12/26/2022 Abstract [facility] CHC ADULT DENTAL [address] [place] [phone] David Magallon DDS [address] [place], [place] [phone] Social History Tobacco Use Types Packs/Day Years [...]
[2024-09-28 15:52] LABS: MANUAL DIFF FLAG NO
[2024-09-28 15:55] LABS: Hematocrit 39.0 % (42.0-52.0); Hemoglobin 13.6 g/dl (14.0-18.0); Imm Gran Abs Auto 0.04 X10*3/uL (0.00-0.03); Imm Gran Pct Auto 0.9 % (0.0-0.4); Lymphocytes Absolute Auto 1.1 X10*3/uL (1.2-4.9); Mean Corpuscular HGB Conc 34.9 g/dl (31.0-36.0); Mean Corpuscular Hemoglobin 30.4 pg (27.0-33.0); Mean Corpuscular Volume 87.1 fL (80.0-98.0); NRBC Abs Auto 0.000 X10*3/uL (0.0-0.012); NRBC Pct Auto 0.0 /100WBC (0.0-0.2); Platelet Count 240 X10*3/uL (160-400); Red Blood Count 4.48 X10*6/uL (4.60-5.80); White Blood Count 4.4 X10*3/uL (4.8-10.8)
[2024-09-28 16:20] LABS: Alanine Aminotransferase 55 U/L (0-40); Albumin Level 4.3 g/dL (3.5-5.0); Alkaline Phosphatase 81 U/L (39-117); Anion Gap 11 (12-20); Aspartate Amino Transferase 36 U/L (5-37); Blood Urea Nitrogen 23 mg/dL (9-16); Calcium 9.1 mg/dL (8.4-10.2); Carbon Dioxide 27 mmol/L (22-29); Chloride 109 mmol/L (96-108); Estimated Glomerular Filt Rate > 60; Potassium 4.1 mmol/L (3.3-5.1); Sodium 143 mmol/L (135-145); Total Protein 6.4 g/dL (6.5-8.0)
== END 2024-09-28 11:54 | disposition home or self-care (01) ==
LOC: HO.HMGCLDS 11:53
PROVIDERS: PCP Family Medicine; Visit Provider Family Medicine
DX: Z00.00 Encounter for general adult medical examination without abnormal findings (principal); R41.3 Other amnesia
CPT/HCPCS: 36415; 80053; 84443; 85025

== ENCOUNTER → 2024-09-30 23:59 | Outpatient (BNV) | payer OTHER, SELFPAY | PROVIDERS: PCP Family Medicine; Visit Provider Family Medicine | DX: I10 Essential (primary) hypertension (principal); F31.9 Bipolar disorder, unspecified; R56.9 Unspecified convulsions; D64.9 Anemia, unspecified | CPT/HCPCS: G0179 ==

== ENCOUNTER 2024-10-11 11:55 | Outpatient (AMB) | payer OTHER, SELFPAY ==
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
[2024-10-11 12:05] VITALS: BP 126/70; PULSE 66; RESP 14; TEMP 36.6; O2SAT 96; BMI 30.7
--- OUTSIDE RECORDS SUMMARY | 2024-10-11 13:07 | XMS_ITS | Encounter Summary ---
Author Organization [employer] Address [address] [place] [address] Care Team Providers Care Consulting Business Developer Name Role Phone Unavailable Primary Care Provider Unavailabl e Encounter Details Date Type Department Care Team (Late st Contact Info) Description 12/26/2022 Abstract [facility] ADULT DENTAL [address] [place] [id number] David Magallon DDS [address] [place], [place] [phone] Social History Tobacco Use Types Packs/Day Years [...]
== END 2024-10-11 12:32 | disposition home or self-care (01) ==
PROVIDERS: PCP Family Medicine; Visit Provider Family Medicine
DX: R41.3 Other amnesia (principal); G35 Multiple sclerosis; E66.9 Obesity, unspecified; Z68.30 Body mass index [BMI] 30.0-30.9, adult; D64.9 Anemia, unspecified; R74.8 Abnormal levels of other serum enzymes

== ENCOUNTER → 2024-10-11 11:55 | Outpatient (BNVA) | payer OTHER, SELFPAY | PROVIDERS: PCP Family Medicine; Visit Provider Family Medicine | DX: G35 Multiple sclerosis (principal); R41.3 Other amnesia; D64.9 Anemia, unspecified; R74.8 Abnormal levels of other serum enzymes; E66.9 Obesity, unspecified; R74.01 Elevation of levels of liver transaminase levels | CPT/HCPCS: 99212 ==

== ENCOUNTER 2024-10-27 13:19 | Outpatient (REF) | payer OTHER, SELFPAY ==
--- OUTSIDE RECORDS SUMMARY | 2024-10-18 05:30 | XMS_ITS ---
Author Organization [facility] Address [address] [facility] [place] [address] Care Team Providers Care Team Truck Driver Name Role Phone Konrad Mercado MD Primary Care Provider Margarito Blandon Unavailable [phone] Allergies Allergen (clinical drug ingredient) Drug/Non Drug [...] 10/18/2024 Encounters Encounter Location Date Provider Diagnosis [facility] [address] [place] [address] 10/18/2024 Margarito Grigsby Plan Of Treatment Next Appt Details Provider Name:Margarito Grigsby , 01/31/2025 01:00:00 PM, [address] [place], [address], Progress Notes * AHSAN NancyOB: 9 (44 yo M)Acc No.[id number]:10/18/2024 Progress Notes Patient: Raf GLEASON Provider: Layne Grigsby DPM :1980 A ge:44 Y S ex:Male Date:10/18/2024 Address:[address] [place] [address] [address] [facility] Pcp:Konrad Mercado MD Subjective: * Chief Complaints: [...] dmits. C ardiovascular: Pacemaker d enies. M SECURITY ESCORT d enies. W PW d enies. C [...] provider. Sign off status: Pending * Provider: Layne Grigsby DPM Date: 10/18/2024 Generated for Lyn sheppard/Ema/[place] on: 0 10/27/2024 01:36 PM EDT
--- NOTE | ~2024-10-27 | MR_ITS ---
EXAMINATION: MR BRAIN WITHOUT CONTRAST CLINICAL INFORMATION: Other amnesia. R41.3 COMPARISON: June 17, 2016. August 25, 2006.. TECHNIQUE: MRI of the brain was obtained using routine sequences without contrast. FINDINGS: No restricted diffusion. Bilateral multifocal patchy and punctate deep periventricular white matter hyperintense T2 FLAIR signal extending from the corpus callosum in a perpendicular fashion and involving mostly the supratentorial compartment. Prominence of the extra-axial CSF spaces cerebral sulci and ventricles as well as the cerebellar tonsils. Hyperintense T2 FLAIR signal, left brachial pontis. Focal encephalomalacia involving the superior and inferior right temporal gyri. Flow-void signal within the main cerebral vessels is normal. No acute intracranial hemorrhage, mass effect, midline shift, hydrocephalus or herniation. Sellar/suprasellar region demonstrated no gross masses. There is normal position of the cerebellar tonsils. MR/MR head/brain wo con IMPRESSION: No acute brain abnormality. Extensive white matter disease likely related to demyelinating process with similar morphology and distribution pattern. Global cerebral atrophy. Electronically signed by: Michael Hathaway MD 10/27/2024 02:48 PM EDT
--- OUTSIDE RECORDS SUMMARY | 2024-10-27 13:37 | XMS_ITS | Encounter Summary ---
Author Organization [employer] Address [address] [place] [address] Care Team Providers Care Signals Intelligence Analysis Manager Name Role Phone Unavailable Primary Care Provider Unavailabl e Encounter Details Date Type Department Care Team (Late st Contact Info) Description 12/26/2022 Abstract [facility] CHC ADULT DENTAL [address] [place] [id number] David Magallon DDS [address] [place], [place] [phone] Social History Tobacco Use Types Packs/Day Years [...]
== END 2024-10-27 13:20 | disposition home or self-care (01) ==
LOC: HO.MRI 13:19
PROVIDERS: PCP Family Medicine; Visit Provider Family Medicine
DX: R41.3 Other amnesia (principal); R42 Dizziness and giddiness
CPT/HCPCS: 70551

== ENCOUNTER → 2024-10-27 13:20 | Outpatient (BNV) | payer OTHER, SELFPAY | PROVIDERS: PCP Family Medicine; Visit Provider Radiology Diagnostic Radiology | DX: R90.82 White matter disease, unspecified (principal); G31.89 Other specified degenerative diseases of nervous system | CPT/HCPCS: 70551 ==

== ENCOUNTER → 2024-11-04 23:59 | Outpatient (BNV) | payer OTHER, SELFPAY | PROVIDERS: PCP Family Medicine; Visit Provider Family Medicine | DX: F31.9 Bipolar disorder, unspecified (principal); F03.90 Unspecified dementia, unspecified severity, without behavioral disturbance, psychotic disturbance, mood disturbance, and anxiety; I10 Essential (primary) hypertension; R56.9 Unspecified convulsions; D64.9 Anemia, unspecified | CPT/HCPCS: G0179 ==

== ENCOUNTER 2024-12-21 13:00 | Outpatient (RCR) | payer OTHER, SELFPAY ==
--- NOTE | 2024-06-28 13:54 | MHC.PT.EP ---
[facility] [place] Office [place] Office [place] Office [address] Lisbeth Greenberg [address] [phone] F: [phone] F: [phone] F: [phone] F: [phone] Physical Therapy Plan of Care Date of Evaluation: 06/28/24 Date of Surgery: Diagnosis: left hamstring muscle strain Assessment: Patient is a 44 year old R handed male who presents with s/s consistent with L hamstring muscle strain. He does not work but does enjoy staying active in the community. Patient past medical history includes MS, bipolar disorders and seizures. Current impairments include pain, balance, posture, body mechanics, ROM, strength, activity tolerance and functional mobility. Functional limitations include decreased ability to stand, walk, squat, negotiate stairs, jog and be active. Patient is motivated with good rehab potential. Skilled PT will address impairments and functional limitations in order to achieve goals. Frequency and Duration: The patient will be seen 2x/week for 5 weeks Short Term Goals: I with HEP -2 weeks 90/90 lacking 30 or less - 3 weeks Able to walk 30 minutes without fatigue or increased pain - 3 weeks Senior Care Goals: LE strength 4/5 grossly - 5 weeks SLB > 8 seconds b/l - 5 weeks LEFS 26/80 - 5 weeks gastroc tightness min - 5 weeks Treatment Plan: Modalities to reduce pain, spasms and effusion. Manual therapy to restore motion and function. Therapeutic exercise to improve strength and flexibility. Neuromuscular re-education for posture and balance. Therapeutic activities to return to functional activities of daily living. Electronically signed by: Javier Benson, PT Please sign and return to therapist. Thank you for your referral.
--- NOTE | 2024-08-17 09:07 | MHC.PT.EP ---
[facility] [place] Office [place] Office [place] Office [address] Lisbeth Greenberg [address] [phone] F: [phone] F: [phone] F: [phone] F: [phone] Physical Therapy Plan of Care Date of Evaluation: 06/28/24 Date of Surgery: Diagnosis: left hamstring muscle strain Assessment: Patient is a 44 year old R handed male who presents with s/s consistent with L hamstring muscle strain. He does not work but does enjoy staying active in the community. Patient past medical history includes MS, bipolar disorders and seizures. Current impairments include pain, balance, posture, body mechanics, ROM, strength, activity tolerance and functional mobility. Functional limitations include decreased ability to stand, walk, squat, negotiate stairs, jog and be active. Patient is motivated with good rehab potential. Skilled PT will address impairments and functional limitations in order to achieve goals. Frequency and Duration: The patient will be seen 2x/week for 5 weeks Short Term Goals: I with HEP -2 weeks 90/90 lacking 30 or less - 3 weeks Able to walk 30 minutes without fatigue or increased pain - 3 weeks [facility] Goals: LE strength 4/5 grossly - 5 weeks SLB > 8 seconds b/l - 5 weeks LEFS 26/80 - 5 weeks gastroc tightness min - 5 weeks Treatment Plan: Modalities to reduce pain, spasms and effusion. Manual therapy to restore motion and function. Therapeutic exercise to improve strength and flexibility. Neuromuscular re-education for posture and balance. Therapeutic activities to return to functional activities of daily living. Electronically signed by: Javier Benson, PT Please sign and return to therapist. Thank you for your referral.
--- NOTE | 2025-01-19 12:37 | MHC.PT.DC ---
[facility] [place] Office [place] [facility] [place] Office [address] Lisbeth Greenberg [address] [phone] F: [phone] F: [phone] F: [phone] F: [phone] Physical Therapy Discharge Report Diagnosis: left hamstring muscle strain Date of Surgery: Date of Evaluation: 06/28/24 Date of Discharge: 12/30/24 Treatments to Date: 19 Cancellations to Date: No Shows to Date: Discharge Status: Improved Function Independent with HEP Discharge Summary: 12/21/24: pt I with gym attendance and HEP. he has progressed well on strength, balance and function including gym routine and ability to walk. able to walk 30 minutes without rest or increased pain. we will d/c to HEP at this time. 12/16/24: pt has transitioned nicely to gym. we will d/c to HEP nv. 11/24/24: pt motivated to transition to gym. he was 2 more appts then d/c to hEP. 10/25/24: pt has been with improved activity tolerance and output before fatigue. continue to progress as tolerated. 10/21/24: pt has been feeling better overall with skilled PT. still feels very challenged with balance and had a few brief LOB corrected with //. 10/18/24: pt progressing well with skilled PT. no adverse reactions from above program. some fatigue noted. we have been able to continue to progress higher level challenge. 10/11/24: pt progressing with higher level ex for balance and stability. no adverse reactions. // needed for bosu lunges. 09/28/24: pt has been feeling better overall. was sick and missed 2 weeks. we will continue to progress. added theract today to challenge balance in dynamic setting. good response to challenge. 09/09/24: progressing well with resistance - 35# retro/lateral walking. continue to progress as tolerated. 09/06/24: I with HEP. 90/90 lacking 32 b/l. Able to walk 45 minutes without rest. Continue to progress as tolerated. 08/26/24: we have been limited at times with foot pain and have had a slow in progress. 08/23/24: pt limited by wart due to pain. progressed resistance on shuttle. pt otherwise progressing well. 08/17/24: pt seemingly dragging his feet more in clinic and needing increased rest. we will attempt progression NV. 08/09/24: we have continued to progress strength without adverse reactions. continue to progress as tolerated. add balance as tolerated in functional capacities. 08/05/24: updated pt HEP. said he lost last one. we have been able to progress strength and dynamic functional activities. progressing with strength but limited by proprioception and balance. 07/22/24: pt has been feeling better overall with skilled PT. progressing strength and higher level ex each some. minor soreness noted post visit last appt. 07/19/24: pt with good tolerance to progression of strength and balance. we will continue to do so. add loaded retro walks next visit. 07/15/24: pt progressing well. adding therex for LE strength, balance ex. tends to bounce on wobble board. will challenge balance with alternative next visit. 07/12/24: pt progressed with skilled PT. added strength and stretching. issued HEP. edu given for gait with cane and proper demo. we will reinforce this. Patient is a 44 year old R handed male who presents with s/s consistent with L hamstring muscle strain. He does not work but does enjoy staying active in the community. Patient past medical history includes MS, bipolar disorders and seizures. Current impairments include pain, balance, posture, body mechanics, ROM, strength, activity tolerance and functional mobility. Functional limitations include decreased ability to stand, walk, squat, negotiate stairs, jog and be active. Patient is motivated with good rehab potential. Skilled PT will address impairments and functional limitations in order to achieve goals. Electronically signed by: Javier Benson, PT Please sign and return to therapist. Thank you for your referral.
== END 2025-01-19 12:38 | disposition home or self-care (01) ==
LOC: HO.PTCHIC 13:00
PROVIDERS: PCP Family Medicine; Visit Provider Family Medicine
DX: S76.812D Strain of other specified muscles, fascia and tendons at thigh level, left thigh, subsequent encounter (principal)
CPT/HCPCS: 97110; 97112; 97163; 97530

== ENCOUNTER → 2024-12-27 23:59 | Outpatient (BNV) | payer OTHER, SELFPAY | PROVIDERS: PCP Family Medicine; Visit Provider Family Medicine | DX: F31.9 Bipolar disorder, unspecified (principal); I10 Essential (primary) hypertension | CPT/HCPCS: G0179 ==

== ENCOUNTER 2024-12-28 15:47 | Outpatient (AMB) | payer OTHER, SELFPAY ==
--- NOTE | 2024-12-28 15:53 | A.OFFPC_ITS ---
Vital Signs 12/28/24 16:00 Height 5 ft 8 in Weight 201 lb 4 oz BMI 30.6 BP 129/83 Blood Pressure Location Lt brachial Position Sitting Respiration 16 Pulse 66 Pulse Source Pulse Oximeter Temp 98.2 F Temp Source Oral Pulse Oximetry (%) 98 Oxygen Delivery Method Room Air Intake Visit Reasons: CPE with f/u labs and health maint Intake Note: patient here for CPE with follow up labs and health Maint. Machine Set Up Operator Required: No Allergies phenytoin (Dilantin) Allergy (Unknown, Verified 12/28/24 15:59) unknown From Dilantin Allergy (Unknown, Uncoded 09/21/24 14:34) UNKNOWN Medication List - Last Reconciled 12/28/24 by Konrad Mercado MD atorvastatin 40 mg PO BEDTIME 90 days benztropine 1 mg PO BID cholecalciferol (vitamin D3) (Vitamin D3) 25 mcg PO DAILY dalfampridine ER 10 mg PO BID diclofenac sodium 50 mg PO BID 30 days diphenhydramine HCl (Autumn-Dryl) 25 mg PO BEDTIME PRN 30 days divalproex ER 750 mg (3 x 250 mg) PO BID fingolimod 0.5 mg PO DAILY 30 days melatonin 10 mg PO BEDTIME PRN oxybutynin chloride ER 5 mg PO DAILY 30 days risperidone 2 mg PO DAILY risperidone 3 mg PO BEDTIME salicylic acid 40% 1 appl topical Q48H 10 days trazodone 100 mg PO DAILY Tobacco use date assessed: 12/28/24 Dental Screening Dental Screen Date: 12/28/24 Did you have a dental visit in the last 12 months?: No Did you have a dental problem in the last 6 months where you did not have access to dental care?: No Was dental information given to patient?: Patient has dentist HPI CPE with f/u labs and health maint HPI Details 44 y/o male presents for a CPE with f/u labs and health maintenance. Last labs drawn 09/28/24. Reviewed labs with pt. Mild anemia. Elevated ALT of 55. Complaints of memory changes, dizzines. Hx of MS. Reports recent diarrhea. [facility] Medical History Bipolar disorder with psychotic features Surgical History History of tracheostomy Family History Mother No problems noted. Father No problems noted. 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 1. Little interest or pleasure in doing things: not at all 2. Feeling down, depressed, or hopeless: several days 3. Trouble falling or staying asleep, or sleeping too much: not at all 4. Feeling tired or having little energy: several days 5. Poor appetite or overeating: not at all 6. Feeling bad about yourself - or that you are a failure or have let yourself or your family down: several days 7. Trouble concentrating on things, such as reading the newspaper or watching television: several days 8. Moving or speaking so slowly that other people could have noticed. Or the opposite - being so fidgety or restless that you have been moving around a lot more than usual: nearly every day 9. Thoughts that you would be better off or of hurting yourself in some way: several days Total score: 8 Depression Screening Interpretation: Positive Depression Screening Done: Yes 06362 - PHQ-9 Billing: Yes Source: Developed by Drs. Kevin Lobato, Shaina Kate, Charan Villa and colleagues, with an educational michael from [employer]. Thrive Questionnaire Date Thrive assessed: 12/28/24 I am a: Patient What is your living situation today?: I have a steady place to live Within the past 12 months, did the food you bought not last and you didn't have the money to get more?: Often true Within the past 12 months, did you worry whether your food would run out before you got money to buy more?: Often true Do you have trouble paying for medicines?: No Do you have trouble getting transportation to medical appointments?: No Do you have trouble paying your heating and electricity bill?: I choose not to answer this question Do you have trouble taking care of your child, family member or friend?: I choose not to answer this question Do you have trouble with day-to-day activities such as bathing, preparing meals, shopping, managing finances, etc.?: I choose not to answer this question Are you currently unemployed and looking for a job?: No Are you interested in more education?: No Currently or been in a relationship where the following occur: Made to feel afraid THRIVE Score: 3 AUDIT C Alcohol Use Questionnaire (AUDIT-C) 1. How often do you have a drink containing alcohol?: 2-4 times a month 2. How many drinks containing alcohol do you have on a typical day when you are drinking?: 3 or 4 3. How often do you have six or more drinks on one occasion?: Monthly Total Score: 5 SAAD-7 AMB Questionnaire SAAD-7 Date SAAD - 7 assessed: 12/28/24 Feeling nervous, anxious, or on edge: 0 = Not at all Not being able to stop or control worryin = Several days Worrying too much about different things: 1 = Several days Trouble relaxin = Several days Being so restless that it is hard to sit still: 1 = Several days Becoming easily annoyed or irritable: 1 = Several days Feeling afraid as if something awful might happen: 1 = Several days Total SAAD-7 score (0-4 normal; 5-9 mild; 10-14 moderate; 15-21 severe): 6 Source: Developed by Drs. Kevin Lobato, Shaina Kate, Charan Villa and colleagues, with an educational michael from [employer]. SAAD-7 Assessment Billing SAAD-7 Assessment Tool: SAAD-7 Assessment 22049 Review of Systems Const Denies chills, Denies fatigue, Denies fever(s), Denies headache(s) and Denies weakness Eyes Denies change in vision ENT Denies dizziness, Denies headache(s), Denies hearing loss, Denies nasal congestion, Denies sinus pain, Denies sinus pressure and Denies sore throat Card Denies chest pain, Denies lightheadedness, Denies dyspnea and Denies other (palpitations) Resp Denies cough, Denies dyspnea and Denies wheezing GI Reports diarrhea Denies hematuria and Denies dysuria Musc Denies abnormal gait, Denies myalgias, Denies arthralgias, Denies numbness and Denies tingling Skin/Breast Denies rash, Denies unusual bruising and Denies wounds Neuro Denies abnormal gait, Denies dizziness, Denies headache(s), Denies memory loss, Denies numbness, Denies Sensory deficit (Neuro), Denies tingling and Denies weakness Psych Denies anxiety, Denies depression and Denies memory loss Endo Denies cold intolerance, Denies fatigue, Denies heat intolerance, Denies polydipsia and Denies polyuria Kwesi/Lymph Denies easy bleeding and Denies easy bruising Aller/Immun Denies wheezing Physical exam (Primary Care) Vital Signs: Last Vital Signs Temp 98.2 F 12/28/24 16:00 Pulse 66 12/28/24 16:00 Resp 16 12/28/24 16:00 BP 129/83 12/28/24 16:00 Pulse Ox 98 12/28/24 16:00 Oxygen Delivery Method Room Air 12/28/24 16:00 BMI result Body Mass Index 30.6 Tobacco/Smoking Status: Tobacco use Status Tobacco use date assessed 12/28/24 12/28/24 16:04 Patient Tobacco Use Status Former Tobacco user 12/28/24 15:55 Tobacco use type Cigarette 12/28/24 15:55 e-Cigarette/Vaping Use Never Used 12/28/24 15:55 PHQ-9: PHQ-9 Score PHQ-9: Total score 8 12/28/24 16:04 Depression Screening Interpretation: Positive Thrive Assessment: Date of Thrive Assessment Date Thrive assessed 12/28/24 12/28/24 16:04 Currently or been in a relationship where the following occur: Made to feel afraid Const General: no acute distress, well developed, alert and awake Nutritional Appearance: well nourished Orientation/consciousness: patient oriented x3 HENMT Head: Yes normocephalic and Yes atraumatic Ears: hearing grossly normal bilaterally and TM's normal bilaterally General nose exam: Normal external nose present and Normal nares present Mouth: Normal oral and palatal mucosa present and moist mucous membranes Teeth and gingiva: dentition normal Throat: Yes posterior oropharynx normal Eyes General: appearance normal, both eyes and all related structures Pupils: Equal, round and reactive pupils present and Pupil accommodation reflex normal EOM: EOMs intact bilaterally Neck Neck: Yes normal visual inspection, Yes no lymphadenopathy and Yes trachea midline Thyroid: Thyroid normal Carotids: no bruits Lymphatic: no lymphadenopathy noted Chest Chest palpation & inspection: normal inspection of the chest Resp Effort & Inspection: normal respiratory effort Auscultation: clear to auscultation bilaterally Cardio Rate: regular rate Rhythm: regular rhythm Heart sounds: S1 normal heart sound present, S2 normal heart sound present, no gallops, no murmurs and no rubs Bruits: no abdominal aortic bruits and no carotid bruits GI Palpation (GI): No Abdominal aortic bruit present, Soft to palpation, nontender, No hepatosplenomegaly present and No Rebound tenderness present Auscultation: normal bowel sounds General: Yes no CVA tenderness Back/Spine/Pelvis Back: no CVA tenderness Cervical Spine: cervical ROM normal and No Cervical spine tenderness Thoracic/Lumbar Spine: thoraco-lumbar ROM normal, No pain with thoraco-lumbar ROM, No thoracic spinal tenderness and No lumbar spinal tenderness Skin Lesions: no lesions Rashes: no rashes Trauma: no lacerations or abrasions Wounds: no wounds Nails: normal Neuro General: patient oriented x3 Cranial nerves: Yes Equal, round and reactive pupils present Cognition (Neuro): normal cognition Gait exam (Neuro): Normal gait present Motor exam (neuro): 5/5 motor strength present throughout Sensory Exam: No Sensory deficit (Neuro) Deep tendon reflexes (DTR's): Right patellar reflex intensity grade: 2+ and Left patellar reflex intensity grade: 2+ Extrem General: Yes normal to inspection and No edema Psych Appearance: grossly normal Affect: normal affect Attitude: cooperative Thought process: Normal thought process present Coding Level of Care Code Est Pt Level 3 (82647) Est Pt Prev Care 40-64y(21013) Diagnoses Adult general medical exam Z00.00 Essential hypertension I10 Mild anemia D64.9 Hyperlipidemia E78.5 Multiple sclerosis G35 Diarrhea R19.7 Elevated liver enzymes R74.8 Dizziness R42 Memory changes R41.3 Additional Codes SAAD-7 Assessment Billing - SAAD-7 Assessment Tool: SAAD-7 Assessment 36777 ([id number]) PHQ-9 - 27739 - PHQ-9 Billing: Yes ([id number]) Assessment & Plan Assessment & Plan (1) Adult general medical exam: Code(s): Z00.00 - Encounter for general adult medical examination without abnormal findings Category: Medical Plan: 44-year-old male presents for Complete physical exam (2) Essential hypertension: Code(s): I10 - Essential (primary) hypertension Category: Medical Plan: Blood pressure is controlled. Goal is less than 140/90 (3) Mild anemia: Code(s): D64.9 - Anemia, unspecified Category: Medical Plan: Mild, will monitor (4) Hyperlipidemia: Code(s): E78.5 - Hyperlipidemia, unspecified Category: Medical Plan: He is on atorvastatin Continue current medication (5) Multiple sclerosis: Code(s): G35 - Multiple sclerosis Category: Medical Plan: History of multiple sclerosis and patient has had new or complaints of memory loss and dizziness. MRI compared with imaging in 2017 and 2006 shows lesions consistent with his demyelinating disease and similar distribution. Has seen Dr. Mendez in the past and would like a referral back to him - referred (6) Diarrhea: Code(s): R19.7 - Diarrhea, unspecified Category: Medical Plan: Recent onset Encouraged good hydration Should pass spontaneously (7) Elevated liver enzymes: Code(s): R74.8 - Abnormal levels of other serum enzymes Category: Medical Plan: He has an ultrasound scheduled in January We will follow-up on this at his next visit (8) Dizziness: Code(s): R42 - Dizziness and giddiness Category: Medical Plan: As above (9) Memory changes: Code(s): R41.3 - Other amnesia Category: Medical Plan: As above Orders: Orders Lipid Panel Today Z00.00 - Encounter for general adult medical examination without abnormal findings Comprehensive Thom[place]ons. Panel Fast Today Z00.00 - Encounter for general adult medical examination without abnormal findings TSH reflex Free T4 Today Z00.00 - Encounter for general adult medical examination without abnormal findings Microalbumin, Random (w Creat) Today I10 - Essential (primary) hypertension UA CC w/rflx Micro + Cult Today Z00.00 - Encounter for general adult medical examination without abnormal findings Prostate Specific Antigen Scr Today Z12.5 - Encounter for screening for malignant neoplasm of prostate Complete Blood Count Auto Diff Today Z00.00 - Encounter for general adult medical examination without abnormal findings Referrals Neurology Referral G35 - Multiple sclerosis, R41.3 - Other amnesia, R42 - Dizziness and giddiness
[2024-12-28 16:00] VITALS: BP 129/83; PULSE 66; RESP 16; TEMP 36.8; O2SAT 98; BMI 30.6
== END 2024-12-28 16:44 | disposition home or self-care (01) ==
LOC: HO.HMCFM 15:47
PROVIDERS: PCP Family Medicine; Visit Provider Family Medicine
DX: Z00.00 Encounter for general adult medical examination without abnormal findings (principal); R42 Dizziness and giddiness; G35.D Multiple sclerosis, unspecified; R41.3 Other amnesia; I10 Essential (primary) hypertension; D64.9 Anemia, unspecified; E78.5 Hyperlipidemia, unspecified; R19.7 Diarrhea, unspecified; R74.8 Abnormal levels of other serum enzymes

== ENCOUNTER → 2024-12-28 15:47 | Outpatient (BNVA) | payer OTHER, SELFPAY | PROVIDERS: PCP Family Medicine; Visit Provider Family Medicine | DX: Z00.00 Encounter for general adult medical examination without abnormal findings (principal); I10 Essential (primary) hypertension; D64.9 Anemia, unspecified; E78.5 Hyperlipidemia, unspecified; G35.D Multiple sclerosis, unspecified; R19.7 Diarrhea, unspecified; R74.8 Abnormal levels of other serum enzymes; R42 Dizziness and giddiness; R41.3 Other amnesia; Z79.899 Other long term (current) drug therapy; Z13.31 Encounter for screening for depression; Z13.39 Encounter for screening examination for other mental health and behavioral disorders | CPT/HCPCS: 96127; 99212; 99396 ==

== ENCOUNTER 2025-03-07 11:55 | Outpatient (AMB) | payer OTHER, SELFPAY ==
--- OUTSIDE RECORDS SUMMARY | 2024-10-18 04:30 | XMS_ITS ---
Author Organization [facility] Address [address] [place] [address] Care Team Providers Care Job Cost Estimator Name Role Phone Konrad Mercado MD Primary Care Provider Morgan Golden Unavailable Margarito Grigsby Unavailable [phone] Allergies Allergen (clinical drug ingredient) Drug/Non Drug Allergy documented on EMR Reaction Allergy Type Onset Date Status dilation (uncoded) Unknown Allergy A ctive Medications Medication SIG (Take, Route, Frequency, Duration) Notes Start Date End Date Status Fingolimod HCl 0.5 MG 1 capsule Orally O nce a day Active Autumn-Dryl 25 MG 1 tablet at bedtime as needed Orally Once a day Active Divalproex Sodium Ac tive oxyBUTYnin Chloride ER 5 MG 1 tablet Ora lly Once a day Active Atorvastatin Calcium 40 MG 1 tablet Oral ly Once a day Active diphenhydrAMINE HCl Active Vitamin D3 Active Social History Tobacco Use: Social History Observation Description Date Details (start date - stop date) Never Smoker NA - NA Tobacco use other than smoking: Question Answer Notes Are you an other tobacco user? No Tobacco Control (Standard) Question Answer Notes Tobacco use: Nonsmoker Additional Findings: Tobacco non-user Current no nsmoker AUDIT-C (Standard) Question Answer Notes Did you have a drink contain ing alcohol in the past year? Yes How often did you have a dri nk containing alcohol in the past year? Declined to specify (0 point) How many drinks did you have on a typical day when you were drinking in the past year? Declined to specify (0 point) How often did you have six o r more drinks on one occasion in the past year? Declined to specify (0 point) Points 0 Interpretation Negative Vital Signs Height 5ft 9in in 10/18/2024 Weight 200 lbs 10/18/2024 BMI 29.53 kg/m2 10/18/2024 Encounters Encounter Location Date [facility] [address] [place] [address] 10/18/2024 Margarito Grigsby Plan Of Treatment Next Appt Details Provider Name:Morgan Blair eliot Cope, 04/20/2025 02:30:00 PM, [address] [facility], [place], [address], Progress Notes * Raf LYONS JrDOB:1979 (44 yo M)Acc No.[id number]:10/18/2024 Progress Notes Patient: Alisa MENDENHALLRaf IBRAHIM Jr Provider: Jody Grigsby DPM :1980 A ge:44 Y S ex:Male Date:10/18/2024 Address:[address] [place] [address] [facility] [address] , [facility] Pcp:Konrad Mercado MD Subjective: * Chief Complaints: * * ROS: G eneral/Constitutional: Nausea d enies. V omiting d enies. H rody Thirst d enies. L oss appetite d enies. C hills d enies. F atigue d enies.?Fever d enies. N ight Sweats d enies. U nexplained weight loss d enies. U nexplained weight gain d enies. H EENTM: Dentures d enies. D izziness d enies. G lasses/contacts a dmits. R etinopathy d enies. B lurred/double vision d enies. T MJ?denies. D ischarge/drainage d enies. I mplants d enies. S ore throat d enies. D ental implants d enies. H danyell of hearing d enies. D ifficulty chewing/swallowing/speaking d enies. N ose bleeds d enies. S ore mouth d enies. ? R espiratory: On Oxygen d enies. P neumonia/pleurisy d enies.?Bronchitis d enies. E mphysema d enies. C oughing a dmits. C ough blood?denies. S hortness of breath a dmits. W heezing a dmits. C ardiovascular: Pacemaker d enies. M LABORER HIGH DENSITY PRESS d enies. W PW d enies. C HF d enies. H eart attack d enies. S eptal defect d enies. R apid beat d enies. C hest pain d enies. A trial Fib. d enies. M urmur/Palpitations d enies. G astrointestinal: Hemorrhoids d enies. S tomach/Abdominal pain d enies. D ark blood stool d enies. I rritable bowel d enies. C onstipation d enies. D iarrhea d enies. H ematology: Swelling d enies. C lots d enies. V aricose Veins d enies. B ruising d enies. B leeding problem d enies. G enitourinary: Blood urine d enies. F requent/Painfu/urination/bladder control d enies. K idney stones d enies. I nfection (UTI) d enies. N ephropathy d enies. s ex trans dis (STD) d enies. P rostate d enies. M usculoskeletal: Hammertoes d enies. B unions d enies. B ack Pain d enies. M uscle Cramps/ Resting d enies. M uscle cramps / walking d enies.?Generalized aches and pains a dmits. W eakness d enies. I nteg.: Hyatt d enies. S cars a dmits. C orns/calluses?denies. I ngrown nails d enies. P ainful nails d enies. O pen Sores d enies. R ashes d enies. N eurologic: Difficulty sleeping d enies. B rain disorder d enies. N umbness d enies. B alance trouble d enies. C onfusion d enies. F ainting/blackouts d enies. T ingling d enies. T remors d enies. * Medical History: A nxiety, Headaches/Migraines, Nerve disorder, Psychiatric disorder, Reflux Gerd, Stroke, Warts, Transfusions, MS. * Family History: M other: alive, diagnosed with Diabetic - NIDDM, Unspecified essential hypertension. F ather: , diagnosed with Unspecified essential hypertension. * Social History: T obacco Use: T obacco use other than smoking A re you an other tobacco user? N o Tobacco Control (Standard) T obacco use: N onsmoker A dditional Findings: Tobacco non-user C urrent nonsmoker D rugs/Alcohol: D rugs H ave you used drugs other than those for medical reasons in the past 12 months? N o M iscellaneous: C affeine: yes, frequency:, 1-2 cups per day. Occupation: Unemployed. D rug/Alcohol: A HUDSON-C (Standard) D id you have a drink containing alcohol in the past year? Y es H ow often did you have a drink containing alcohol in the past year? D eclined to specify (0 point) H ow many drinks did you have on a typical day when you were drinking in the past year? D eclined to specify (0 point) H ow often did you have six or more drinks on one occasion in the past year? D eclined to specify (0 point) P oints 0 I nterpretation N egative * Medications: T aking Vitamin D3 , Taking Autumn-Dryl 25 MG Tablet 1 tablet at bedtime as needed Orally Once a day , Taking Fingolimod HCl 0.5 MG Capsule 1 capsule Orally Once a day , Taking Divalproex Sodium , Taking Atorvastatin Calcium 40 MG Tablet 1 tablet Orally Once a day , Taking oxyBUTYnin Chloride ER 5 MG Tablet Extended Release 24 Hour 1 tablet Orally Once a day , Taking diphenhydrAMINE HCl , Medication List reviewed and reconciled with the patient * Allergies: d ilation: Allergy. Objective: * Vitals: H t: 5ft 9in, Wt:200, BMI:29.53, Shoe size: 10, Ht-cm: 175.26 cm, Wt-k.72 kg. Assessment: Plan: * Treatment: * Images: * The named appointment provid er may or may not be the originator of this progress note, and it is not deemed complete until electronically signed by the appointment provider. Sign off status: Pending * Provider: Jody Grigsby DPM Date: 0 10/18/2024 Generated for Lyn Unger on: 1 05/08/2024 03:46 PM EST
--- OUTSIDE RECORDS SUMMARY | 2024-11-01 09:00 | XMS_ITS ---
Author Organization [facility] Address [address] [place] [address] Care Team Providers Care Honing Job Setter Name Role Phone Konrad Mercado MD Primary Care Provider Morgan Golden Unavailable [phone] Margarito Grigsby Unavailable [phone] REASON FOR VISIT Seen Sooner Encounters Encounter Location Date Provider Diagnosis [facility] [address] [place] [address] 11/01/2024 Margarito Grigsby Plan Of Treatment Next Appt Details Provider Name:Morgan Cope, 04/20/2025 02:30:00 PM, [address] [place] [address], [phone], Progress Notes * Raf LYONS JrDOB:1979 (44 yo M)Acc No.[id number]:11/01/2024 Progress Notes Patient: Alisa CARRERARaf DON Jr Provider: Layne Grigsby DPM :1980 A ge:44 Y S ex:Male Date:11/01/2024 Address:[facility] [address] , [place] Pcp:Konrad Mercado MD Subjective: * Chief Complaints: * 1 . Seen Sooner. * Medical History: Objective: * Vitals: Assessment: Plan: * Treatment: * Images: * The named appointment provid er may or may not be the originator of this progress note, and it is not deemed complete until electronically signed by the appointment provider. Sign off status: Pending * Provider: Layne Grigsby DPM Date: 0 11/01/2024 Generated for Lyn Unger on: 1 05/08/2024 03:47 PM EST
--- OUTSIDE RECORDS SUMMARY | 2025-01-13 05:15 | XMS_ITS ---
Author Organization [facility] Address [address] [place] [address] Care Team Providers Care Textile Converter Name Role Phone Konrad Mercado MD Primary Care Provider Morgan Golden [facility] Encounters Encounter Location Date Provider Diagnosis [facility] [address] [place] [address] 01/13/2025 Morgan Cope Plan Of Treatment Next Appt Details Provider Name:Morgan Cope, 04/20/2025 02:30:00 PM, [address] [place] [address], [id number], Progress Notes * Raf LYONS JrDOB:1979 (44 yo M)Acc No.[id number]:01/13/2025 Progress Notes Patient: Raf GLEASON Jr Provider: Jessika Cope DPM :1980 A ge:44 Y S ex:Male Date:01/13/2025 Address:[facility] [address] , [place] Pcp:Konrad Mercado MD Subjective: * Chief Complaints: [...] Date: 1 Generated for Lyn sheppard/Ema/[place] on: 05/08/2024 03:47 PM EST
--- OUTSIDE RECORDS SUMMARY | 2025-01-31 08:00 | XMS_ITS ---
Author Organization [facility] Address [address] [place] [address] Care Team Providers Care Head Refrigeration Engineer Name Role Phone Konrad Mercado MD Primary Care Provider Morgan Golden Unavailable [phone] Margarito Grigsby Unavailable [phone] Allergies Allergen (clinical drug ingredient) Drug/Non Drug Allergy documented on EMR Reaction Allergy Type Onset Date Status phenytoin Dilantin Unknown Drug Allergy Active REASON FOR VISIT for sooner apt Medications Medication SIG (Take, Route, Frequency, Duration) Notes Start Date End Date Status Fingolimod HCl 0.5 MG 1 capsule Orally O nce a day Active Divalproex Sodium Ac tive Atorvastatin Calcium 40 MG 1 tablet Oral ly Once a day Active oxyBUTYnin Chloride ER 5 MG 1 tablet Ora lly Once a day Active diphenhydrAMINE HCl Active Vitamin D3 Active Autumn-Dryl 25 MG 1 tablet at bedtime as needed Orally Once a day Active Social History Tobacco Use: Social History [...] specify (0 point) Points 0 Interpretation Negative Encounters Encounter Location Date Provider Diagnosis [facility] [place] [address] [place] [address] 01/31/2025 Margarito Grigsby Plan Of Treatment Next Appt Details Provider Name:Morgan Cope, 04/20/2025 02:30:00 PM, [address] [facility], [place], [address], Progress Notes * Raf LYONS JrDOB:1979 (44 yo M)Acc No.[id number]:01/31/2025 Progress Notes Patient: Raf GLEASON Provider: Layne Grigsby DPM :1980 A ge:44 Y S ex:Male Date:01/31/2025 Address:[address] [place] [address] [address] , [facility] Pcp:Konrad Mercado MD Subjective: * Chief Complaints: * 1 . For sooner apt. * ROS: G eneral/Constitutional: Nausea d enies. [...] dmits. C ardiovascular: Pacemaker d enies. 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 W PW d enies. C [...] affeine: yes, frequency:, 1-2 cups per day. Marital status: Single. Occupation: Unemployed. D rug/Alcohol: A HUDSON-C (Standard) [...] Once a day , Taking diphenhydrAMINE HCl * Allergies: D ilantin. Objective: * Vitals: Assessment: Plan: * Treatment: * Images: * The named appointment provid er may or may not be the originator of this progress note, and it is not deemed complete until electronically signed by the appointment provider. Sign off status: Pending * Provider: Layne Grigsby DPM Date: 04/02/2024 Generated for Lyn sheppard/Ema/eTransmitting on: 1 05/08/2024 03:47 PM EST
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
[2025-03-07 12:16] VITALS: BP 110/78; PULSE 68; RESP 15; TEMP 36.6; O2SAT 96; BMI 30.2
--- OUTSIDE RECORDS SUMMARY | 2025-03-07 15:47 | XMS_ITS | Clinical Summary ---
Author Organization [employer] Address [address] 7t [place] [address] Care Team Providers Care Ballistics Teacher Name Role Phone Unavailable Primary Care Provider [...] Use Screening 1991 Family Planning (PISQ) 1994 HPV Vaccines (1 - Male 3-dose series) 1994 Hepatitis C Screening 1997 Hepatitis B Vaccines (1 of 3 - 19+ 3-dose series) 1998 COVID-19 Vaccine (3 - season) 2024 05/22/2021, 06/19/2020 Influenza Vaccine (#1) 2024 , 04/19/2019, 12/17/2017, Additional history exists Tobacco [...] Years) and At-Risk Patients (6 to 49) Years Aged Out No longer eligible based on [...] Relevant to Health Maintenance Insurance DENTAL - [facility]
--- OUTSIDE RECORDS SUMMARY | 2025-03-07 15:47 | XMS_ITS | Encounter Summary ---
Author Organization [employer] Address [address] [place] [address] Care Team Providers Care Egg Crater Name Role Phone Unavailable Primary Care Provider Unavailabl e Reason for Visit * Reason Onset Date Comments tx clarification 04/08/2024 Encounter Details Date Type Department Care Team (Late st Contact Info) Description 04/08/2024 Telephone [facility] [address] [place] [address] Milady Joe DDS tx clarification Social History Tobacco Use Types [...]
--- OUTSIDE RECORDS SUMMARY | 2025-03-07 15:47 | XMS_ITS | Encounter Summary ---
Author Organization [employer] Address [address] [place] [address] Care Team Providers Care Lodge Sales Associate Name Role Phone Unavailable Primary Care Provider Unavailabl e Encounter Details Date Type Department Care Team (Late st Contact Info) Description 12/26/2022 Abstract [facility] [address] [place] [phone] David Magallon DDS [address] [place], [place] [phone] Social History Tobacco Use Types Packs/Day Years [...]
--- OUTSIDE RECORDS SUMMARY | 2025-03-07 15:47 | XMS_ITS | Encounter Summary ---
Author Organization [facility] [employer] [facility] Address [address] 7t [place] [address] Care Team Providers Care Hot Mill Observer Name Role Phone Unavailable Primary Care Provider [...]
--- OUTSIDE RECORDS SUMMARY | 2025-03-07 15:47 | XMS_ITS | Patient Health Record ---
Author [facility] Address [address] [place] [address] Care Team Providers Care Numerical Control Router Operator Name Role Phone Konrad Mercado MD Primary Care Provider Morgan Golden Unavailable Margarito Grigsby Unavailable [phone] Allergies Allergen (clinical drug ingredient) Drug/Non Drug Allergy documented on EMR Reaction Allergy Type Onset Date Status phenytoin Dilantin Unknown Drug Allergy Active Results Component Value Reference Range Notes HEMOGLOBIN A1C (GLYCOHEMOGLO BIN) Reviewed date:01/19/2025 08:24:22 AM Interpretation: Performing Lab: Notes/Report: HEMOGLOBIN A1C % (HH) 5.7 Reason For Referral No Information Medications Medication SIG (Take, Route, Frequency, Duration) Notes Start Date End Date Status Vitamin D3 Active Autumn-Dryl 25 MG 1 tablet at bedtime as needed Orally Once a day Active Fingolimod HCl 0.5 MG 1 capsule Orally O nce a day Active Ammonium Lactate 12 % 1 application Exte rnally to affected areas of dry skin to feet and for between the toes Twice a day; Duration: 30 days Active Divalproex Sodium Ac tive Atorvastatin Calcium 40 MG 1 tablet Oral ly Once a day Active oxyBUTYnin Chloride ER 5 MG 1 tablet Ora lly Once a day Active diphenhydrAMINE HCl Active Immunizations Vaccine Route Administration Date Status Comme nts Influenza Unknown 12/22/2023 Administered Influenza Unknown 11/22/2024 Administered Social History Tobacco Use: Social History Observation [...] specify (0 point) Points 0 Interpretation Negative Problems Problem Type SNOMED Code ICD Code Onset Dates Problem Status W/U Status Risk Notes Problem Acquired hammer toe of left foot (8002858326671 103) Other hammer toe(s) (acquired), left foot (M20.42) Active confirmed Vital Signs Blood pressure diastolic 70 mm Hg 01/17/2025 Height 5ft 8in in 01/17/2025 Blood pressure systolic 130 mm Hg 01/17/2025 Weight 200 lbs 01/17/2025 BMI 30.41 kg/m2 01/17/2025 Encounters Encounter Location Date Provider Diagnosis [address] [address] 01/17/2025 Morgan Cope Pain in left toe(s) M79.675 ; Other hammer toe(s) (acquired), left foot M20.42 and Xerosis of skin L85.[address] [facility] [address] 10/18/2024 Margarito Grigsby [facility] [address] 01/17/2025 Morgan Cope [address] [address] 01/17/2025 Morgan Cope Assessments Encounter Date Diagnosis (ICD Code) Assessment Notes Treatment Notes Treatment Clinical Notes Section Notes 01/17/2025 Pain in left toe(s) (ICD-10 - M79.675) 01/17/2025 Other hammer toe(s) (acquired), left foot (ICD-10 - M20.42) 01/17/2025 Xerosis of skin (ICD-10 - L85.3) Plan Of Treatment Next Appt Details Provider Name:Morgan Cope, 04/20/2025 02:30:00 PM, [address] [facility], [place], [address], Insurance Providers Payer Name Payer Address Payer Phone Subscriber Number Group Number Insured Name Patient Relationship to Insured Coverage Start Date Coverage End Date [facility] Adv [address] [place] [id number] Raf Lockwood Self - patient is the insured Medical (General) History Medical History History ICD Code Anxiety Headaches/Migraines nerve disorder Psychiatric disorder Reflux Gerd Stroke Warts Transfusions MS Surgical History Surgery Date(Month/Year) trachiotomy head surgery feeding tube
== END 2025-03-07 12:28 | disposition home or self-care (01) ==
LOC: HO.HMCFM 11:56
PROVIDERS: PCP Family Medicine; Visit Provider Family Medicine
DX: R73.03 Prediabetes (principal); I10 Essential (primary) hypertension; R74.8 Abnormal levels of other serum enzymes; G35.D Multiple sclerosis, unspecified

== ENCOUNTER → 2025-03-07 11:55 | Outpatient (BNVA) | payer OTHER, SELFPAY | PROVIDERS: PCP Family Medicine; Visit Provider Family Medicine | DX: R73.03 Prediabetes (principal); R74.8 Abnormal levels of other serum enzymes; I10 Essential (primary) hypertension; G35.D Multiple sclerosis, unspecified | CPT/HCPCS: 83036; 99212 ==

== ENCOUNTER → 2025-03-14 13:49 | Outpatient (BNVA) | payer OTHER, SELFPAY | PROVIDERS: PCP Family Medicine; Visit Provider Psychiatry & Neurology Neurology | DX: G35.D Multiple sclerosis, unspecified (principal); F39 Unspecified mood [affective] disorder; R26.89 Other abnormalities of gait and mobility; N31.8 Other neuromuscular dysfunction of bladder; Z79.899 Other long term (current) drug therapy | CPT/HCPCS: 99202 ==

== ENCOUNTER → 2025-03-14 13:49 | Outpatient (AMB) | payer OTHER, SELFPAY ==
--- OUTSIDE RECORDS SUMMARY | 2024-10-18 04:30 | XMS_ITS ---
Author Organization [facility] Address [address] [place] [address] Care Team Providers Care Pocket Cutter Name Role Phone Konrad Mercado MD Primary Care Provider Morgan Golden Unavailable Margarito Grigsby Unavailable [phone] Allergies Allergen (clinical drug ingredient) Drug/Non Drug [...] 10/18/2024 Encounters Encounter Location Date Provider [facility] [address] [place] [address] 10/18/2024 Margarito Grigsby Plan Of Treatment Next Appt Details Provider Name:Morgan Blair eliot Cope, 04/20/2025 02:30:00 PM, [address] [facility], [place], [address], Progress Notes * Raf LYONS JrDOB:1979 (44 yo M)Acc No.[id number]:10/18/2024 Progress Notes Patient: Alisa MENDENHALLRaf IBRAHIM Jr Provider: Jody Grigsby DPM :1980 A ge:44 Y S ex:Male Date:10/18/2024 Address:[address] [place] [address] [facility] [address] , [facility] Pcp:Konrad Mercado MD Subjective: * Chief Complaints: [...] dmits. C ardiovascular: Pacemaker d enies. 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 W PW d enies. C [...] 0 10/18/2024 Generated for Lyn Unger on: 05/15/2024 03:01 PM EST
--- OUTSIDE RECORDS SUMMARY | 2024-11-01 09:00 | XMS_ITS ---
Author Organization [facility] Address [address] [place] [address] Care Team Providers Care Lay Out Maker Name Role Phone Konrad Mercado MD Primary Care Provider Morgan Golden Unavailable Margarito Grigsby Unavailable [phone] REASON FOR VISIT Seen Sooner Encounters Encounter Location Date Provider Diagnosis [facility] [address] [place] [address] 11/01/2024 Margarito Grigsby Plan Of Treatment Next Appt Details Provider Name:Morgan Cope, 04/20/2025 02:30:00 PM, [address] [place] [address], [phone], Progress Notes * Raf LYONS JrDOB:1979 (44 yo M)Acc No.[id number]:11/01/2024 Progress Notes Patient: Alisa CARRERARaf DON Jr Provider: Layne Grigsby DPM :1980 A ge:44 Y S ex:Male Date:11/01/2024 Address:[facility] [address] , [place] Pcp:Konrad Mercado MD Subjective: * Chief Complaints: [...] 0 11/01/2024 Generated for Lyn Unger on: 05/15/2024 03:02 PM EST
--- OUTSIDE RECORDS SUMMARY | 2025-01-13 05:15 | XMS_ITS ---
Author Organization [facility] Address [address] [place] [address] Care Team Providers Care Snake Charmer Name Role Phone Konrad Mercado MD Primary Care Provider Morgan Golden [facility] Encounters Encounter Location Date Provider Diagnosis [facility] [address] [place] [address] 01/13/2025 Morgan Cope Plan Of Treatment Next Appt Details Provider Name:Morgan Cope, 04/20/2025 02:30:00 PM, [address] [place] [address], [id number], Progress Notes * Raf LYONS JrDOB:1979 (44 yo M)Acc No.[id number]:01/13/2025 Progress Notes Patient: Raf GLEASON Jr Provider: Jessika Cope DPM :1980 A ge:44 Y S ex:Male Date:01/13/2025 Address:[facility] [address] , [place] Pcp:Konrad Mercado MD Subjective: * Chief Complaints: * * Medical History: Objective: * Vitals: Assessment: Plan: * Treatment: * Images: * The named appointment provid er may or may not be the originator of this progress note, and it is not deemed complete until electronically signed by the appointment provider. Sign off status: Pending * Provider: Jessika Cope DPM Date: 1 Generated for Lyn sheppard/Ema/[place] on: 05/15/2024 03:02 PM EST
--- OUTSIDE RECORDS SUMMARY | 2025-01-31 08:00 | XMS_ITS ---
Author Organization [facility] Address [address] [place] [address] Care Team Providers Care Body Finisher Name Role Phone Konrad Mercado MD Primary Care Provider Morgan Golden Unavailable Margarito Grigsby Unavailable [phone] Allergies Allergen (clinical drug ingredient) Drug/Non Drug [...] Negative Encounters Encounter Location Date Provider Diagnosis [facility] [place] [address] [place] [address] 01/31/2025 Margarito Grigsby Plan Of Treatment Next Appt Details Provider Name:Morgan Cope, 04/20/2025 02:30:00 PM, [address] [facility], [place], [address], Progress Notes * Raf LYONS JrDOB:1979 (44 yo M)Acc No.[id number]:01/31/2025 Progress Notes Patient: Raf GLEASON Provider: Layne Grigsby DPM :1980 A ge:44 Y S ex:Male Date:01/31/2025 Address:[address] [place] [address] [address] , [facility] Pcp:Konrad Mercado MD Subjective: * Chief Complaints: [...] dmits. C ardiovascular: Pacemaker d enies. 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 W PW d enies. C [...] 04/02/2024 Generated for Lyn sheppard/Ema/eTransmitting on: 1 05/15/2024 03:02 PM EST
--- NOTE | 2025-03-14 14:16 | MHC.OFFVIS ---
Intake Visit Reasons: Multiple sclerosis/ Dizziness Allergies phenytoin (Dilantin) Allergy (Unknown, Verified 03/07/25 12:15) unknown From Dilantin Allergy (Unknown, Uncoded 03/07/25 12:15) UNKNOWN HPI Comments Details: 44 years old man with remitting relapsing multiple sclerosis. He was initially seen in August of 2004 when he was referred from ER with an abnormal brain MRI. This was done due to new onset of left eye blurred vision and double vision. He was started on Solu-medrol. A few days later, he was found unrsponsive at home and brought to [facility] and was diagnosed with possible seizures, never confirmed, and was intubated. His work up included another brain MRI that revealed quite significant worsening of brain lesions, which likely was the cause of worsening and unresponsiveness. Because of remarkable change in his clinical situation and very abnormal brain MRI, he was referred to [facility]. There, he had a brain biopsy in Oct that was inconclusive. I made the diagnosis of MS based upon his clinical history and imaging findings. He was started on Betaseron that he continued until 2006 when it was switched to Tysabari due to further worsening clinical features. He did well on Tysabari and took it for many years. It was changed to Gilenya in 2013. MS has mostly affected his gait, balance, energy, mentation and bladder control. There was suspicion of seizure disorder but not confirmed. He also has been treated for bipolar disorder. He is presenting for a neurology follow-up for management of multiple sclerosis. He reports that his condition has been stable for over a year, with no hospital visits or new lesions. He denies experiencing any new or unusual symptoms. His medication regimen for multiple sclerosis includes Gilenya, which he takes daily. He has a personal nurse who assists with his medications and calls daily to ensure adherence. He also takes vitamin D, a medication for walking, a bladder pill for nocturia, risperidone, atorvastatin for cholesterol, and benztropine. The patient participated in physical therapy for over a year and a half, but it was discontinued approximately six months ago as he was deemed to have reached maximum benefit. He had a brain MRI in October of the previous year. [facility] Medical History Bipolar disorder with psychotic features Surgical History History of tracheostomy Family History Mother No problems noted. Father No problems noted. Other Mental health disorder Social History (Updated 03/07/25 @ 12:16 by Roopa Peterson CMA) Household Members: None Housing: Apartment Do you presently have visiting nurse or other home services: Yes (Pt reports visiting nurse and [employer] CONSULTANT that helps with household tasks) Alcohol intake: current Comment: Beer every now and then Patient Tobacco Use Status: Former Tobacco user Tobacco use type: Cigarette Cigarettes Per Day: 2 e-Cigarette/Vaping Use: Never Used Second Hand Smoke Exposure: No service: No Current occupational status: disabled Current occupational exposures/hazards: No Sexual orientation: Straight/Heterosexual Cognitive needs: Yes (Cane/walker) Hearing needs: No Vision needs: No Review of Systems Narrative - General: Denies fatigue. - Neurological: Denies any new or unusual symptoms beyond his baseline. - Genitourinary: Reports nocturia, which is managed with medication. Physical Exam Neuro Other: Mental Status: He is alert and awake with normal spontaneity of speech fluency comprehension and affect. Cranial Nerves: CN II: Visual mancilla full to confrontation, visual acuity intact. CN III, IV, : Pupils equal, round, reactive to light and accommodation. Extraocular movements are normal. CN V: Facial sensation is normal. CN VII: Mild left facial weakness CN VIII: Hearing intact to bedside conversation is normal. CN IX, X: Palate elevates symmetrically. CN XI: Shoulder shrug and head turn symmetrical. CN XII: Tongue midline without atrophy or fasciculations. Moderately spastic and ataxic gait. Extrapyramidal: Mild bilateral hand postural tremor Speech: Normal; no dysarthria or tremor. Assessment & Plan Assessment & Plan (1) Multiple sclerosis: Comment: JCV ABs at [facility] in 2011 and 2012, 2016: + MRI brain WO at [facility] in Oct 2024: Mod severe WM MS type disease, mod atrophy MRI brain WWO at [facility] in May 2016: MS lesions, LL 3/5, no enhancement, mild to mod atrophy MRI brain WO at [facility] in 2009: mod sever MS, lesion load 3/5 Tox screen at [facility] in Nov 2014: cocaine +. 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 I explained that a new MRI is not needed at this time because his last scan from October was stable and he is doing well clinically. I informed him that I have placed orders for blood tests. We will manage his medication refills as needed and he is scheduled for a follow-up visit in six months. Orders: Orders JCV Ab w/Indx rflx Inhibition Today G35 - Multiple sclerosis Liver Panel Today G35 - Multiple sclerosis Vitamin D 1,25 dihydroxy Today G35 - Multiple sclerosis Coding Level of Care Code New Pt Level 5 (04290) Diagnoses Multiple sclerosis G35
--- OUTSIDE RECORDS SUMMARY | 2025-03-14 15:02 | XMS_ITS | Clinical Summary ---
Author Organization [employer] Address [address] [facility] 7t [place] [address] Care Team Providers Care Mantel Craftsman Name Role Phone Unavailable Primary Care Provider [...] Relevant to Health Maintenance Insurance DENTAL - [facility]
--- OUTSIDE RECORDS SUMMARY | 2025-03-14 15:02 | XMS_ITS | Encounter Summary ---
Author Organization [employer] Address [address] [place] [address] Care Team Providers Care Purchase Analyst Name Role Phone Unavailable Primary Care Provider Unavailabl e Reason for Visit * Reason Onset Date Comments tx clarification 04/08/2024 Encounter Details Date Type Department Care Team (Late st Contact Info) Description 04/08/2024 Telephone [facility] [address] [place] [address] Milady oJe DDS tx clarification Social History Tobacco Use [...]
--- OUTSIDE RECORDS SUMMARY | 2025-03-14 15:02 | XMS_ITS | Encounter Summary ---
Author Organization [employer] Address [address] [place] [address] Care Team Providers Care International Trade Compliance Manager Name Role Phone Unavailable Primary Care Provider Unavailabl e Encounter Details Date Type Department Care Team (Late st Contact Info) Description 12/26/2022 Abstract [facility]ULT D[facility]AL [address] [place] [id number] David Magallon DDS [address], [place] [phone] Social History Tobacco Use Types Packs/Day Years [...]
--- OUTSIDE RECORDS SUMMARY | 2025-03-14 15:02 | XMS_ITS | Encounter Summary ---
Author Organization [facility] [employer] [facility] Address [address] [place] [address] Care Team Providers Care Elevator Erector Helper Name Role Phone Unavailable Primary Care [...]
--- OUTSIDE RECORDS SUMMARY | 2025-03-14 15:02 | XMS_ITS | Patient Health Record ---
Author [facility] Address [address] [place] [address] Care Team Providers Care Production Control Coordinator Name Role Phone Konrad Mercado MD Primary Care Provider Morgan Golden Unavailable Margarito Grigsby Unavailable [phone] Allergies Allergen (clinical drug ingredient) Drug/Non Drug [...] Problem Acquired hammer toe of left foot (7378222407185 103) Other hammer toe(s) (acquired), left foot (M20.42) Active confirmed Vital Signs Blood pressure diastolic 70 mm Hg 01/17/2025 Height 5ft 8in in 01/17/2025 Blood pressure systolic 130 mm Hg 01/17/2025 Weight 200 lbs 01/17/2025 BMI 30.41 kg/m2 01/17/2025 Encounters Encounter Location Date Provider Diagnosis [address] [address] 01/17/2025 Morgan Cope Pain in left toe(s) M79.675 ; Other hammer toe(s) (acquired), left foot M20.42 and Xerosis of skin L85.[address] [facility] [address] 10/18/2024 Margarito Grigsby [facility] [address] 01/17/2025 Morgan Cope [address] [address] 01/17/2025 Morgan Cope Assessments Encounter Date Diagnosis (ICD Code) Assessment Notes Treatment Notes Treatment Clinical Notes Section Notes 01/17/2025 Pain in left toe(s) (ICD-10 - M79.675) 01/17/2025 Other hammer toe(s) (acquired), left foot (ICD-10 - M20.42) 01/17/2025 Xerosis of skin (ICD-10 - L85.3) Plan Of Treatment Next Appt Details Provider Name:Morgan Cope, 04/20/2025 02:30:00 PM, [address] [facility], [place], [address], Insurance Providers Payer Name Payer Address Payer Phone Subscriber Number Group Number Insured Name Patient Relationship to Insured Coverage Start Date Coverage End Date [facility] Adv [address] [place] [id number] Raf Lockwood Self - patient is the insured Medical (General) History Medical History History ICD Code Anxiety Headaches/Migraines nerve disorder Psychiatric disorder Reflux Gerd Stroke Warts Transfusions MS Surgical History Surgery Date(Month/Year) trachiotomy head surgery feeding tube
== END ==
LOC: HO.HSM 13:49
PROVIDERS: PCP Family Medicine; Visit Provider Psychiatry & Neurology Neurology
DX: G35.D Multiple sclerosis, unspecified (principal)
CPT/HCPCS: 99205